=== PATIENT | male | born 1935 | race Caucasian/White ===

== ENCOUNTER 2016-07-03 18:48 | Inpatient (IN) | payer MEDICARE, OTHER ==
[2016-07-03] MEDS ORDERED: cefTRIAXone 1 GM in SODIUM CHLORIDE 0.9% MINIBAG 100 ML IV STA (20:24)
[2016-07-03] MEDS ORDERED: SODIUM CHLORIDE 0.9% 1,000 ML IV ONE ×2 (20:38→21:33)
[2016-07-03] MEDS ORDERED: cefTRIAXone 1 GM VIAL ONE (20:40)
[2016-07-03] MEDS ORDERED: SODIUM CHLORIDE 0.9% MINIBAG 100 ML IV ONE (20:40)
[2016-07-04] MEDS ORDERED: oxyCODONE 5 MG TABLET PO PRN (00:11)
[2016-07-04] MEDS ORDERED: SODIUM CHLORIDE FLUSH 0.9% 10 ML SYRINGE IVP PRN (00:11)
[2016-07-04] MEDS ORDERED: ONDANSETRON 4 MG/2 ML VIAL IVP PRN (00:11)
[2016-07-04] MEDS ORDERED: ACETAMINOPHEN 325 MG TABLET PO PRN (00:11)
[2016-07-04] MEDS ORDERED: ONDANSETRON ODT 4 MG TABLET TL PRN (00:11)
[2016-07-04] MEDS ORDERED: PROCHLORPERAZINE 10 MG/2 ML VIAL IVP PRN (00:11)
[2016-07-04] MEDS: SODIUM CHLORIDE 0.9% 1,000 ML IV SCH ×3 (02:21→22:15)
[2016-07-04] MEDS: LEVOTHYROXINE 25 MCG TABLET PO SCH (06:33)
[2016-07-04] MEDS: SODIUM CHLORIDE FLUSH 0.9% 10 ML SYRINGE IVP SCH ×3 (06:33→22:22)
[2016-07-04] MEDS: POLYETHYLENE GLYCOL 3350 17 GM PACKET PO SCH (08:15)
[2016-07-04] MEDS: diazePAM 5 MG TABLET PO SCH ×2 (08:16→22:14)
[2016-07-04] MEDS: LISINOPRIL 20 MG TABLET PO SCH (08:16)
[2016-07-04] MEDS: amLODIPine 5 MG TABLET PO SCH (08:16)
[2016-07-04] MEDS: GABAPENTIN 300 MG CAPSULE PO SCH ×2 (08:17→22:13)
[2016-07-04] MEDS: POTASSIUM CHLORIDE 10 MEQ CAPSULE PO SCH (08:17)
[2016-07-04] MEDS: INSULIN ASPART 300 UNIT/3 ML PEN SUBQ SCH ×4 (08:17→22:20)
[2016-07-04] MEDS: METOPROLOL SUCCINATE 50 MG TABLET PO SCH ×2 (08:18→22:16)
[2016-07-04] MEDS ORDERED: ENOXAPARIN 40 MG/0.4 ML SYRINGE SUBQ SCH (09:00)
[2016-07-04] MEDS ORDERED: WARFARIN 1 MG TABLET PO SCH (14:00)
[2016-07-04] MEDS: INSULIN GLARGINE 300 UNIT/3 ML PEN SUBQ SCH (22:21)
[2016-07-05] MEDS: LEVOTHYROXINE 25 MCG TABLET PO SCH (06:44)
[2016-07-05] MEDS: SODIUM CHLORIDE FLUSH 0.9% 10 ML SYRINGE IVP SCH ×3 (06:48→21:13)
[2016-07-05] MEDS: POLYETHYLENE GLYCOL 3350 17 GM PACKET PO SCH (08:26)
[2016-07-05] MEDS: GABAPENTIN 300 MG CAPSULE PO SCH ×2 (08:27→21:07)
[2016-07-05] MEDS: amLODIPine 5 MG TABLET PO SCH (08:27)
[2016-07-05] MEDS: diazePAM 5 MG TABLET PO SCH ×2 (08:27→21:07)
[2016-07-05] MEDS: LISINOPRIL 20 MG TABLET PO SCH (08:27)
[2016-07-05] MEDS: INSULIN ASPART 300 UNIT/3 ML PEN SUBQ SCH ×4 (08:28→21:08)
[2016-07-05] MEDS: POTASSIUM CHLORIDE 10 MEQ CAPSULE PO SCH (08:28)
[2016-07-05] MEDS: METOPROLOL SUCCINATE 50 MG TABLET PO SCH ×2 (08:29→21:07)
[2016-07-05] MEDS: SODIUM CHLORIDE 0.9% 1,000 ML IV SCH ×3 (08:30→18:22)
[2016-07-05] MEDS: APIXABAN 2.5 MG TABLET PO SCH ×2 (11:39→21:06)
[2016-07-05] MEDS: INSULIN GLARGINE 300 UNIT/3 ML PEN SUBQ SCH (21:07)
[2016-07-06] MEDS: SODIUM CHLORIDE 0.9% 1,000 ML IV SCH (04:36)
[2016-07-06] MEDS: POTASSIUM CHLORIDE 10 MEQ CAPSULE PO SCH (07:54)
[2016-07-06] MEDS: LEVOTHYROXINE 25 MCG TABLET PO SCH (07:54)
[2016-07-06] MEDS: INSULIN ASPART 300 UNIT/3 ML PEN SUBQ SCH ×2 (07:59→11:46)
[2016-07-06] MEDS: APIXABAN 2.5 MG TABLET PO SCH (09:59)
[2016-07-06] MEDS: LISINOPRIL 20 MG TABLET PO SCH (10:00)
[2016-07-06] MEDS: diazePAM 5 MG TABLET PO SCH (10:00)
[2016-07-06] MEDS: GABAPENTIN 300 MG CAPSULE PO SCH (10:00)
[2016-07-06] MEDS: METOPROLOL SUCCINATE 50 MG TABLET PO SCH (10:00)
[2016-07-06] MEDS: amLODIPine 5 MG TABLET PO SCH (10:00)
[2016-07-06] MEDS: SODIUM CHLORIDE FLUSH 0.9% 10 ML SYRINGE IVP SCH (10:01)
[2016-07-06] MEDS: POLYETHYLENE GLYCOL 3350 17 GM PACKET PO SCH (10:01)
== END 2016-07-06 13:00 | disposition home or self-care (01) | DRG 683 ==
DX: N17.9 Acute kidney failure, unspecified (principal); J40 Bronchitis, not specified as acute or chronic; R53.1 Weakness; M62.82 Rhabdomyolysis; K52.1 Toxic gastroenteritis and colitis; S09.90XA Unspecified injury of head, initial encounter; X58.XXXA Exposure to other specified factors, initial encounter; E46 Unspecified protein-calorie malnutrition; I47.1 Supraventricular tachycardia; I10 Essential (primary) hypertension; E78.00 Pure hypercholesterolemia, unspecified; E86.0 Dehydration; E11.9 Type 2 diabetes mellitus without complications; J06.9 Acute upper respiratory infection, unspecified; E03.9 Hypothyroidism, unspecified; I12.9 Hypertensive chronic kidney disease with stage 1 through stage 4 chronic kidney disease, or unspecified chronic kidney disease; N18.3 Chronic kidney disease, stage 3 (moderate); K44.9 Diaphragmatic hernia without obstruction or gangrene; E11.22 Type 2 diabetes mellitus with diabetic chronic kidney disease; T47.4X1A Poisoning by other laxatives, accidental (unintentional), initial encounter; M19.90 Unspecified osteoarthritis, unspecified site; R53.83 Other fatigue; H91.90 Unspecified hearing loss, unspecified ear; I25.10 Atherosclerotic heart disease of native coronary artery without angina pectoris; E78.5 Hyperlipidemia, unspecified; L20.9 Atopic dermatitis, unspecified; Z68.27 Body mass index [BMI] 27.0-27.9, adult; S50.312A Abrasion of left elbow, initial encounter; S50.311A Abrasion of right elbow, initial encounter; W22.8XXA Striking against or struck by other objects, initial encounter; Z79.01 Long term (current) use of anticoagulants; Z79.4 Long term (current) use of insulin; Z79.899 Other long term (current) drug therapy; K21.9 Gastro-esophageal reflux disease without esophagitis; N40.1 Benign prostatic hyperplasia with lower urinary tract symptoms; N39.498 Other specified urinary incontinence; R35.0 Frequency of micturition; R35.1 Nocturia; R39.15 Urgency of urination; I49.3 Ventricular premature depolarization; M54.9 Dorsalgia, unspecified; Z85.828 Personal history of other malignant neoplasm of skin; Z86.711 Personal history of pulmonary embolism; Y92.009 Unspecified place in unspecified non-institutional (private) residence as the place of occurrence of the external cause

== ENCOUNTER 2016-07-10 08:00 | Outpatient (CLI) | payer MEDICARE, OTHER | END 2016-07-10 08:01 | disposition home or self-care (01) | DX: R05 Cough (principal) ==

== ENCOUNTER 2016-08-10 11:30 | Outpatient (CLI) | payer MEDICARE, OTHER | END 2016-08-10 11:31 | disposition home or self-care (01) | DX: I26.99 Other pulmonary embolism without acute cor pulmonale (principal); I10 Essential (primary) hypertension; E11.9 Type 2 diabetes mellitus without complications ==

== ENCOUNTER 2017-02-09 08:00 | Outpatient (CLI) | payer MEDICARE, OTHER ==
[2017-02-09 19:58] LABS: CALCIUM 9.1 mg/dL (8.5-10.3); CREATININE 1.1 mg/dL (0.6-1.2); POTASSIUM 4.2 mmol/L (3.5-5.0)
[2017-02-09 20:29] LABS: HEMOGLOBIN A1C 0.88 g/dL
== END 2017-02-09 08:01 | disposition home or self-care (01) ==
LOC: LAB.WCP 08:00
PROVIDERS: ATTEND Family Medicine
DX: E11.9 Type 2 diabetes mellitus without complications (principal)
CPT/HCPCS: 36415; 80048; 83036; 87086

== ENCOUNTER 2017-02-09 11:15 | Outpatient (CLI) | payer MEDICARE, OTHER | END 2017-02-09 11:16 | LOC: LAB.R 11:15 | PROVIDERS: ATTEND Family Medicine | DX: N40.1 Benign prostatic hyperplasia with lower urinary tract symptoms (principal) | CPT/HCPCS: 87086 ==

== ENCOUNTER 2017-06-18 14:57 | Outpatient (CLI) | payer MEDICARE, OTHER ==
--- NOTE | 2017-06-23 12:47 | Ultrasound Report ---
RIGHT UPPER QUADRANT ULTRASOUND: 06/18/2017 CLINICAL INDICATION: Right upper quadrant pain. TECHNIQUE: Real-time scanning was performed with abrasives sales representative static images obtained. The liver measures 15 cm. No intrahepatic biliary dilatation is seen. No focal mass is appreciated. The common bile duct measures 3 mm. The gallbladder is normal. The right kidney measures 10.1 cm, and demonstrates no hydronephrosis. No free fluid is present. IMPRESSION: No evidence of cholelithiasis or biliary dilatation. TD: 06/18/2017 20:17 MTDD
== END 2017-06-18 14:58 | disposition home or self-care (01) ==
LOC: DI 14:57
PROVIDERS: ATTEND Family Medicine
DX: R10.11 Right upper quadrant pain (principal)
CPT/HCPCS: 76705

== ENCOUNTER 2018-02-25 10:57 | Outpatient (CLI) | payer MEDICARE, OTHER ==
--- NOTE | 2018-02-25 12:56 | Ultrasound Report ---
Reason: HEMACHROMATOSIS Procedure Date: 02/25/2018 Accession Number: [id number] / [id number] Procedure: US - Abdomen Limited CPT Code: FULL RESULT: EXAM: ABDOMEN ULTRASOUND LIMITED, RUQ (LIMITED TO LIVER AND BILIARY ) EXAM DATE: 02/25/2018 12:06 PM. CLINICAL HISTORY: History of hemachromatosis COMPARISON: Right upper quadrant ultrasound 07/18/2011. TECHNIQUE: Real-time scanning was performed with static images obtained. FINDINGS: Liver: Normal in size and echotexture. 14.6 cm. Main portal vein flow: Hepatopetal. Gallbladder: No stones, wall thickening, or sonographic Beth's sign. Biliary System: CBD measures 2.4 mm. No intrahepatic or extrahepatic ductal dilatation. No ascites. IMPRESSION: Normal sonographic appearance of the liver RADIA
== END 2018-02-25 10:58 | disposition home or self-care (01) ==
LOC: DI 10:57
PROVIDERS: ATTEND Internal Medicine
DX: E83.119 Hemochromatosis, unspecified (principal)
CPT/HCPCS: 76705

== ENCOUNTER 2018-05-06 17:00 | Outpatient (CLI) | payer MEDICARE, OTHER ==
--- NOTE | 2018-05-07 11:56 | XRAY Report ---
Reason: BACK PAIN LUMBAR,RIGHT UPPER QUADRANT PAIN Procedure Date: 05/06/2018 Accession Number: [id number] / [id number] Procedure: XR - Lumbar Spine 2 View CPT Code: FULL RESULT: EXAM: LUMBOSACRAL SPINE RADIOGRAPHY EXAM DATE: 05/06/2018 05:20 PM. CLINICAL HISTORY: Back pain lumbar, right upper quadrant pain. COMPARISONS: 5 views, digitized hardcopy images 05/26/2006. TECHNIQUE: 2 views. FINDINGS: Alignment: Mild upper lumbar dextroconvexity curvature, increased. Increased mild rightward listhesis of L3 on L4. 3 mm anterolisthesis at L4-L5 appears new. Bones: Five kwi-zls-giapjth lumbar vertebral bodies are present. No fractures or bone lesions. Disks: Mild L5-S1 disk space narrowing. Facets: Degenerative facet disease at L4-L5 and L5-S1 and less so at L3-L4, progressed. Sacroiliac Joints: Unremarkable. Soft Tissues: Substantial aortic calcification. The visualized bowel gas pattern is normal. IMPRESSION: 1. No acute abnormality. 2. New mild dextroconvexity lumbar scoliosis and very mild L4-L5 anterior listhesis. 3. Degenerative disease, greatest at the L4-L5 and L4-L5 facets and less so at the L3-L4 facets and L5-S1 disk space level, progressed compared with 2005. RADIA
--- NOTE | 2018-05-09 07:47 | XRAY Report ---
Reason: Right upper quadrant pain Procedure Date: 05/06/2018 Accession Number: [id number] / [id number] Procedure: XR - Abdomen Acute CPT Code: FULL RESULT: EXAM: ABDOMINAL SERIES AND PA CHEST EXAM DATE: 05/06/2018 05:20 PM. CLINICAL HISTORY: Right upper quadrant pain. COMPARISON: 07/03/2016 chest x-ray, 12/31/2015 CT abdomen and pelvis. TECHNIQUE: 2 views abdomen and 1 view chest. FINDINGS: CHEST: Lungs/Pleura: Left basilar infiltrate or atelectasis. Right basilar atelectasis or scarring. Increased interstitial markings in bilateral mid to lower lung field. No effusion. No pneumothorax. Decreased lung volumes. Mediastinum: Heart size normal ectatic aorta ABDOMEN: Bowel Gas Pattern: Increased fecal material No dilated loops or abnormal fluid levels. Free Air: None. Other: Pelvic phleboliths IMPRESSION: 1. Left basilar infiltrate or atelectasis. 2. Increased interstitial markings bilaterally nonspecific. 3. Increased fecal material without obstruction RADIA
== END 2018-05-06 17:01 | disposition home or self-care (01) ==
LOC: DI 17:00
PROVIDERS: ATTEND Family Medicine
DX: M51.36 Other intervertebral disc degeneration, lumbar region (principal); M41.86 Other forms of scoliosis, lumbar region; R10.11 Right upper quadrant pain
CPT/HCPCS: 72100; 74022

== ENCOUNTER 2018-08-31 14:47 | Outpatient (CLI) | payer MEDICARE, OTHER ==
--- NOTE | 2018-08-31 15:40 | XRAY Report ---
Reason: RIB PX, RIGHT SIDED Procedure Date: 08/31/2018 Accession Number: [id number] / [id number] Procedure: WCP - Chest 2 View X-Ray CPT Code: 72623 FULL RESULT: EXAM: CHEST RADIOGRAPHY EXAM DATE: 08/31/2018 03:25 PM. CLINICAL HISTORY: Rib pain, right sided. COMPARISON: Chest 2 view PA/LAT 07/03/2016 7:27 PM. TECHNIQUE: 2 views. FINDINGS: Lungs/Pleura: No focal opacities evident. No pleural effusion. No pneumothorax. Normal volumes. Mediastinum: The cardiomediastinal silhouette is stable, mild cardiomegaly with calcification of the aortic arch. Other: None. IMPRESSION: Mild cardiomegaly with no acute cardiopulmonary abnormality detected. RADIA
== END 2018-08-31 14:48 | disposition home or self-care (01) ==
LOC: DI.WCP 14:47
PROVIDERS: ATTEND Family Medicine
DX: J18.1 Lobar pneumonia, unspecified organism (principal); I11.0 Hypertensive heart disease with heart failure; I50.9 Heart failure, unspecified; E11.9 Type 2 diabetes mellitus without complications; R07.81 Pleurodynia
CPT/HCPCS: 36415; 71046; 80053; 83880; 85027

== ENCOUNTER 2018-08-31 15:25 | Outpatient (CLI) | payer MEDICARE, OTHER ==
[2018-08-31 19:07] LABS: HGB - HEMOGLOBIN 15.1 g/dL (14.0-18.0); MEAN CORPUSCULAR HEMOGLOBIN 32.5 pg (27.0-31.0); MEAN CORPUSCULAR HGB CONC 33.5 g/dL (32.0-36.0); MEAN CORPUSCULAR VOLUME 97.2 fL (80.0-94.0); MEAN PLATELET VOLUME 8.3 fL (7.4-11.4); RED BLOOD COUNT 4.63 10^6/uL (4.70-6.10); RED CELL DISTRIBUTION WIDTH 13.6 % (12.0-15.0); WHITE BLOOD COUNT 7.1 x10^3/uL (4.8-10.8)
[2018-08-31 19:35] LABS: ALBUMIN 3.9 g/dL (3.2-5.5); ALBUMIN/GLOBULIN RATIO 1.3 (1.0-2.2); BILIRUBIN,TOTAL 1.2 mg/dL (0.2-1.0); CALCIUM 8.7 mg/dL (8.5-10.3); CREATININE 1.1 mg/dL (0.6-1.2); TOTAL PROTEIN 6.9 g/dL (6.7-8.2)
== END 2018-08-31 23:59 | disposition home or self-care (01) ==
LOC: LAB.WCP 15:25
PROVIDERS: ATTEND Nurse Practitioner
DX: J81.1 Chronic pulmonary edema (principal); I11.0 Hypertensive heart disease with heart failure; I50.9 Heart failure, unspecified; E11.9 Type 2 diabetes mellitus without complications
CPT/HCPCS: 36415; 80053; 83880; 85027

== ENCOUNTER 2018-09-09 14:00 | Emergency (ER) | payer MEDICARE, OTHER ==
--- NOTE | 2018-09-09 15:01 | ED Physician Documentation ---
PD HPI UPPER EXT INJURY - Stated complaint Stated Complaint: RT ARM INJURY - Chief complaint Chief Complaint: Trauma Ext - History obtained from History obtained from: Patient, Caregiver - History of Present Illness Location: Right, Elbow Type of injury: Fall Where injury occurred: Home Timing - onset: How many hours ago (1) Timing - details: Intermittant Pain level max: 6 Pain level now: 5 Improved by: Rest, Ice, Immobilization Worsened by: Moving, Palpating Associated symptoms: Swelling. No: Weakness, Numbness, Tingling Contributing factors: Anticoagulated (Eliquis) Recently seen: Not recently seen - Additonal information Additional information: 82-year-old male was taking the garbage out today when he slipped fell landed on the right elbow. Did not strike his head. No headache. He is on Eliquis. No neck or back pain. No pain other than the right elbow. Worse with movement and better with rest Review of Systems Ten Systems: 10 systems reviewed and negative Constitutional: denies: Fever, Chills Nose: denies: Rhinorrhea / runny nose, Congestion Respiratory: denies: Cough GI: denies: Abdominal Pain, Nausea, Vomiting, Diarrhea Skin: denies: Rash Musculoskeletal: denies: Neck pain, Back pain Neurologic: denies: Focal weakness, Numbness, Confused, Headache, Head injury, LOC PD PAST MEDICAL HISTORY - Past Medical History Cardiovascular: Hypertension, High cholesterol, Coronary artery disease, Pulmonary embolism, Angina Respiratory: None Endocrine/Autoimmune: Type 2 diabetes, HyPOthyroidism GI: GERD, Hiatal hernia, Diverticulitis : Benign prostate hypertrophy, Frequency HEENT: Chronic hearing loss Musculoskeletal: Osteoarthritis Derm: None - Past Surgical History General: Hiatal hernia repair Cardiovascular: Cardiac catheterization Derm: Skin cancer surgery - Present Medications Home Medications: Ambulatory Orders Medication Instructions Recorded Confirmed Diazepam 5 mg PO BID 03/13/13 07/04/16 Furosemide 20 mg PO MOWEFR 03/13/13 07/04/16 Gabapentin [Neurontin] 300 mg PO BID 03/13/13 07/04/16 Insulin Aspart [Novolog] 10 unit SQ BIDAC 03/13/13 07/04/16 Insulin Glargine [Lantus] 30 unit SUBQ QPM 03/13/13 07/04/16 Levothyroxine [Synthroid] 25 mcg PO DAILY 03/13/13 07/04/16 Metoprolol Succinate [Toprol Xl] 100 mg PO BID 03/13/13 07/04/16 Omeprazole [Prilosec] 20 mg PO DAILY 03/13/13 07/04/16 Potassium Chloride [Micro-K] 10 meq PO MOWEFR 03/13/13 07/04/16 Quinapril HCl [Accupril] 20 mg PO DAILY 03/13/13 07/04/16 Simvastatin [Zocor] 10 mg PO HS 03/13/13 07/04/16 amLODIPine [Norvasc] 5 mg PO DAILY 03/13/13 07/04/16 Liraglutide [Victoza 2-Tanmay] 0.6 mg SQ DAILY 03/18/15 07/04/16 Apixaban [Eliquis] 5 mg PO BID 07/04/16 07/04/16 Triamcinolone 0.1% Cream [Kenalog 15 applic TOP BID #1 tube 07/06/16 0.1% Cream] - Allergies Allergies/Adverse Reactions: Allergies Allergy/AdvReac Type Severity Reaction Status Date / Time contrast dye Allergy Severe Hives Uncoded 09/09/18 14:16 - Social History Does the pt smoke?: No Smoking Status: Never smoker Does the pt drink ETOH?: No Does the pt have substance abuse?: No - Immunizations Immunizations are current?: Yes PD ED PE NORMAL - Vitals Vital signs reviewed: Yes - General General: Alert and oriented X 3, No acute distress, Well developed/nourished - HEENT HEENT: Atraumatic, PERRL, EOMI, Ears normal, Moist mucous membranes, Pharynx benign - Neck Neck: Supple, no meningeal sign, No bony TTP - Cardiac Cardiac: RRR, Strong equal pulses - Respiratory Respiratory: No respiratory distress, Clear bilaterally - Abdomen Abdomen: Soft, Non tender, Non distended - Back Back: No spinal TTP - Derm Derm: Warm and dry - Extremities Extremities: Other (Swelling to the lateral aspect of the right elbow. Pain with range of motion. 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 ) Procedures - Splint (location) R arm Splint applied by: Physician, Tech Type of splint: Fiberglass, Long arm, Posterior Other: Patient tolerated well, No complications, Neurovascular intact, Sling provided PD MEDICAL DECISION MAKING - ED course Complexity details: reviewed results, re-evaluated patient, considered differential, d/w patient, d/w family, d/w senior application security consultant ED course: 82-year-old male status post a ground-level fall landing on the right elbow. He is on Eliquis. Found to have a transverse supracondylar fracture of the right distal humerus. Discussed the case with Dr. Ferrell, orthopedics who recommends a long-arm posterior splint with follow-up in clinic. Patient counseled regarding signs and symptoms for which I believe and urgent re-evaluation would be necessary. Patient with good understanding of and agreement to plan and is comfortable going home at this time This document was made in part using voice recognition software. While efforts are made to proofread this document, sound alike and grammatical errors may occur. Departure - Departure Disposition: 01 Home, Self Care Clinical Impression: Supracondylar fracture of humerus Qualifiers: Encounter type: initial encounter Fracture type: closed Laterality: right Qualified Code(s): S42.411A - Displaced simple supracondylar fracture without intercondylar fracture of right humerus, initial encounter for closed fracture Condition: Good Instructions: ED Fx Elbow Follow-Up: [facility] [Provider Group] Fantasma Ferrell MD [Provider Admit Priv/Credential] - Within 1 week (call wednesday for an appointment. ) Comments: Return if you worsen. Stay in the sling and splint until released by orthopedics. Have your caregiver call them on Wednesday for an appointment. Discharge Date/Time: 09/09/18 17:45
--- NOTE | 2018-09-09 15:44 | XRAY Report ---
Reason: fall, R arm pain Procedure Date: 09/09/2018 Accession Number: [id number] / [id number] Procedure: XR - Elbow 3 View RT CPT Code: FULL RESULT: EXAM: RIGHT ELBOW RADIOGRAPHY EXAM DATE: 09/09/2018 03:17 PM. CLINICAL HISTORY: Fall, R arm pain. COMPARISON: None. TECHNIQUE: 3 views. FINDINGS: Bones: Transverse supracondylar fracture with impaction, apex posterior angulation, and probably about 80% apposition. Otherwise unremarkable. Joints: Distended anterior and posterior fat pads. Soft Tissues: Soft tissue swelling. IMPRESSION: Supracondylar fracture. RADIA
[2018-09-09 17:42] VITALS: BP 144/77
== END 2018-09-09 17:45 | disposition home or self-care (01) ==
LOC: ED 14:00
DX: S42.411A Displaced simple supracondylar fracture without intercondylar fracture of right humerus, initial encounter for closed fracture (principal); W01.0XXA Fall on same level from slipping, tripping and stumbling without subsequent striking against object, initial encounter; Y93.E9 Activity, other interior property and clothing maintenance; Y92.009 Unspecified place in unspecified non-institutional (private) residence as the place of occurrence of the external cause; I10 Essential (primary) hypertension; E11.9 Type 2 diabetes mellitus without complications; Z79.4 Long term (current) use of insulin; Z79.01 Long term (current) use of anticoagulants
CPT/HCPCS: 29105; 99283

== ENCOUNTER 2018-09-12 12:53 | Emergency (ER) | payer MEDICARE, OTHER ==
[2018-09-12 13:14] VITALS: BP 116/61
[2018-09-12] MEDS ORDERED: oxyCODONE 5 MG TABLET PO STA (13:44)
--- NOTE | 2018-09-12 13:46 | ED Physician Documentation ---
History of Present Illness - Stated complaint Stated Complaint: R ELBOW INJ - Chief complaint Chief Complaint: Ext Problem - History obtained from History obtained from: Patient, Family - History of Present Illness Timing: How many days ago (3) Pain level max: 8 Pain level now: 2 Improved by: nothing Worsened by: nothing - Additonal information Additional information: 82 year old male with R arm supracondylar fracture 3 days ago. Increased pain last night. No fevers. no numbness or tingling Review of Systems Constitutional: denies: Fever, Chills Respiratory: denies: Cough : denies: Dysuria Skin: denies: Rash Musculoskeletal: denies: Neck pain, Back pain Neurologic: denies: Headache PD PAST MEDICAL HISTORY - Past Medical History Cardiovascular: Hypertension, High cholesterol, Coronary artery disease, Pulmonary embolism, Angina Respiratory: None Endocrine/Autoimmune: Type 2 diabetes, HyPOthyroidism GI: GERD, Hiatal hernia, Diverticulitis : Benign prostate hypertrophy, Frequency HEENT: Chronic hearing loss Musculoskeletal: Osteoarthritis Derm: None - Past Surgical History General: Hiatal hernia repair Cardiovascular: Cardiac catheterization Derm: Skin cancer surgery - Present Medications Home Medications: Ambulatory Orders Medication Instructions Recorded Confirmed Diazepam 5 mg PO BID 03/13/13 07/04/16 Furosemide 20 mg PO MOWEFR 03/13/13 07/04/16 Gabapentin [Neurontin] 300 mg PO BID 03/13/13 07/04/16 Insulin Aspart [Novolog] 10 unit SQ BIDAC 03/13/13 07/04/16 Insulin Glargine [Lantus] 30 unit SUBQ QPM 03/13/13 07/04/16 Levothyroxine [Synthroid] 25 mcg PO DAILY 03/13/13 07/04/16 Metoprolol Succinate [Toprol Xl] 100 mg PO BID 03/13/13 07/04/16 Omeprazole [Prilosec] 20 mg PO DAILY 03/13/13 07/04/16 Potassium Chloride [Micro-K] 10 meq PO MOWEFR 03/13/13 07/04/16 Quinapril HCl [Accupril] 20 mg PO DAILY 03/13/13 07/04/16 Simvastatin [Zocor] 10 mg PO HS 03/13/13 07/04/16 amLODIPine [Norvasc] 5 mg PO DAILY 03/13/13 07/04/16 Liraglutide [Victoza 2-Tanmay] 0.6 mg SQ DAILY 03/18/15 07/04/16 Apixaban [Eliquis] 5 mg PO BID 07/04/16 07/04/16 Triamcinolone 0.1% Cream [Kenalog 15 applic TOP BID #1 tube 07/06/16 0.1% Cream] Oxycodone HCl/Acetaminophen 1 - 2 each PO Q6H PRN #14 tablet 09/12/18 [Percocet 5-325 mg Tablet] - Allergies Allergies/Adverse Reactions: Allergies Allergy/AdvReac Type Severity Reaction Status Date / Time contrast dye Allergy Severe Hives Uncoded 09/09/18 14:16 - Social History Does the pt smoke?: No Smoking Status: Never smoker Does the pt drink ETOH?: No Does the pt have substance abuse?: No - Immunizations Immunizations are current?: Yes PD ED PE NORMAL - Vitals Vital signs reviewed: Yes - General General: Alert and oriented X 3, No acute distress - HEENT HEENT: Moist mucous membranes - Neck Neck: Supple, no meningeal sign - Derm Derm: Warm and dry - Extremities Extremities: Other (R arm - in splint. Brisk cap refill. NVI.) - Neuro Neuro: Alert and oriented X 3 - Psych Psych: Normal mood, Normal affect Results - Vitals Vitals: Vital Signs - 24 hr 09/12/18 13:12 Temperature 36.5 C Heart Rate 70 Respiratory 20 Rate Blood Pressure 116/61 O2 Saturation 96 Oxygen O2 Source [] Room air O2 Source Room air Procedures - Splint (location) R UE Splint applied by: Physician, Tech Type of splint: Fiberglass, Long arm, Posterior Other: Patient tolerated well, No complications, Neurovascular intact, Sling pr ovided PD MEDICAL DECISION MAKING - ED course Complexity details: considered differential, d/w patient, d/w family ED course: A new splint was applied. Patient feels better in the splint. Will place on pain medication for home. Patient and family counseled regarding signs and symptoms for which I believe and urgent re-evaluation would be necessary. Patient with good understanding of and agreement to plan and is comfortable going home at this time This document was made in part using voice recognition software. While efforts are made to proofread this document, sound alike and grammatical errors may occur. Departure - Departure Disposition: 01 Home, Self Care Clinical Impression: Supracondylar fracture of humerus Qualifiers: Encounter type: initial encounter Fracture type: closed Laterality: right Qualified Code(s): S42.411A - Displaced simple supracondylar fracture without intercondylar fracture of right humerus, initial encounter for closed fracture Condition: Good Instructions: ED Fx Elbow Follow-Up: [facility] [Provider Group] - Within 1 week Prescriptions: Oxycodone HCl/Acetaminophen [Percocet 5-325 mg Tablet] 1 - 2 each PO Q6H PRN #14 tablet PRN Reason: pain Comments: Follow-up with orthopedics for further evaluation and care. Return if you worsen. Do not drink alcohol or drive while on narcotic pain medicine. Note that many narcotic pain relievers also contain tylenol/acetaminophen. Please ensure that your total dose of acetaminophen from all sources does not exceed 3 grams (3000mg) per day. You may constipated on this medication, take a stool softener such as "Colace" twice a day while you are on it. Also recommend a bize-ols-fuzlpdt laxative such as senna or MiraLAX any day that you do not have a bowel movement. If you received narcotic pain medication in the emergency department, do not drive or operate machinery for the next 24 hours. Discharge Date/Time: 09/12/18 14:31
== END 2018-09-12 14:31 | disposition home or self-care (01) ==
LOC: ED 12:53
DX: S42.411A Displaced simple supracondylar fracture without intercondylar fracture of right humerus, initial encounter for closed fracture (principal); X58.XXXA Exposure to other specified factors, initial encounter; E11.9 Type 2 diabetes mellitus without complications; Z79.4 Long term (current) use of insulin; I10 Essential (primary) hypertension; E78.00 Pure hypercholesterolemia, unspecified; I25.10 Atherosclerotic heart disease of native coronary artery without angina pectoris; E03.9 Hypothyroidism, unspecified; Z86.711 Personal history of pulmonary embolism
CPT/HCPCS: 29105; 99283; A9270

== ENCOUNTER 2018-09-15 15:28 | Outpatient (CLI) | payer MEDICARE, OTHER ==
--- NOTE | 2018-09-15 16:30 | CT Report ---
Reason: UNSPECIFIED FRACTURE OF LOWER END OF RIGHT HUMERUS Procedure Date: 09/15/2018 Accession Number: [id number] / [id number] Procedure: CT - UPPER EXTREMITY WO - RT CPT Code: FULL RESULT: EXAM: RIGHT ELBOW CT WITHOUT CONTRAST EXAM DATE: 09/15/2018 03:49 PM. CLINICAL HISTORY: Unspecified fracture of lower end of right humerus. COMPARISON: Radiographs 09/15/2018. TECHNIQUE: Thin-section axial images were acquired of the elbow without contrast. Post-processing: Coronal and sagittal reformats. Other: None. In accordance with CT protocol optimization, one or more of the following dose reduction techniques were utilized for this exam: automated exposure control, adjustment of mA and/or KV based on patient size, or use of iterative reconstructive technique. FINDINGS: Evaluation mildly limited due to attenuation artifact from evaluation performed at patient's side. Overlying splint/cast material also present. Bones: Moderately comminuted, displaced, and impacted intraarticular fracture at the distal humerus. Obliquely oriented component extends from the lateral epicondyle to the junction of the trochlear and capitellar articular surfaces. Smaller obliquely oriented component extends from the medial epicondyle to the junction of the trochlear and capitellar articular surfaces. Multiple ossific fragments at the anterior and posterior aspects of the fracture site. Subtle lucency projects obliquely through the posterior lateral aspect radial head, concerning for nondisplaced fracture. No discrete displaced fracture visualized of the proximal ulna. Evaluation for nondisplaced fracture limited on CT. Joints: Alignment at the radiocapitellar and ulnar trochlear joints anatomic. Moderate to large joint effusion. Multiple small fracture fragments and the coronoid and olecranon fossae. Musculature: No gross fatty atrophy. Limited evaluation of muscle edema on CT. Other: Moderate to severe subcutaneous edema, most prominent posteriorly and medially. IMPRESSION: 1. Moderately comminuted, displaced, and impacted intraarticular fracture distal humerus. 2. Moderate to large joint effusion with multiple small fracture fragments in the coronoid and olecranon fossae. 3. Likely nondisplaced fracture posterior lateral aspect radial head. RADIA The call report notification system was initiated by Dr. Meenu Kerr at 04:29 PM on 09/15/2018. The above call report findings were discussed with Earnest Medina, chemical waste management technician by Dr. Meenu Kerr at 04:31 PM on 09/15/2018.
== END 2018-09-15 15:29 | disposition home or self-care (01) ==
LOC: DI 15:28
PROVIDERS: ATTEND Orthopaedic Surgery Sports Medicine
DX: S42.401A Unspecified fracture of lower end of right humerus, initial encounter for closed fracture (principal); M25.421 Effusion, right elbow

== ENCOUNTER 2018-09-20 13:21 | Outpatient (CLI) | payer MEDICARE, OTHER | END 2018-09-20 13:22 | disposition home or self-care (01) | LOC: DI 13:21 | PROVIDERS: ATTEND Nurse Practitioner | DX: I50.9 Heart failure, unspecified (principal) | CPT/HCPCS: 93306 ==

== ENCOUNTER 2018-10-01 13:13 | Outpatient (CLI) | payer MEDICARE, OTHER | END 2018-10-01 13:14 | disposition critical access hospital (66) | LOC: EMS 13:13 | PROVIDERS: ATTEND Surgery | DX: R42 Dizziness and giddiness (principal) | CPT/HCPCS: A0425; A0427 ==

== ENCOUNTER 2018-10-01 13:31 | Emergency (ER) | payer MEDICARE, OTHER ==
[2018-10-01] MEDS ORDERED: SODIUM CHLORIDE 0.9% 1,000 ML IV ONE (13:47)
--- NOTE | 2018-10-01 13:51 | ED Physician Documentation ---
History of Present Illness - Stated complaint Stated Complaint: DIZZY - Chief complaint Chief Complaint: Neuro - History obtained from History obtained from: Patient - History of Present Illness Timing: Prior to arrival - Additonal information Additional information: Patient is a 83-year-old male with hearing deficit and a complicated past medical history although not appearing to be on anticoagulation according to the meds brought with him by EMS presenting with episode of lightheadedness earlier today. Patient is able to provide some history, although difficult and minimal sign language and lip reading is used. Per EMS and patient, he has multiple caregivers at home and believe that he is compliant with all medications. Patient has been eating well, but suffering from constipation without vomiting or urinary changes. Patient denies areas of pain except for his abdomen including no chest pain. Patient also denies difficulty breathing. Patient stood up to use the restroom and walked several feet and felt lightheaded and fell backwards into his chair without striking of head, loss of consciousness, or other injury.There are no obvious improving or worsening factors noted. Review of Systems Unable to obtain: Other (Deaf) GI: reports: Constipation Neurologic: reports: Near syncope PD PAST MEDICAL HISTORY - Past Medical History Cardiovascular: Hypertension, High cholesterol, Coronary artery disease, Pulmonary embolism, Angina Respiratory: None Endocrine/Autoimmune: Type 2 diabetes, HyPOthyroidism GI: GERD, Hiatal hernia, Diverticulitis : Benign prostate hypertrophy, Frequency HEENT: Chronic hearing loss Musculoskeletal: Osteoarthritis Derm: None - Past Surgical History General: Hiatal hernia repair Cardiovascular: Cardiac catheterization Derm: Skin cancer surgery - Present Medications Home Medications: Ambulatory Orders Medication Instructions Recorded Confirmed Diazepam 5 mg PO BID 03/13/13 10/01/18 Furosemide 20 mg PO MOWEFR 03/13/13 10/01/18 Gabapentin [Neurontin] 300 mg PO BID 03/13/13 10/01/18 Insulin Aspart [Novolog] 10 unit SQ BIDAC 03/13/13 10/01/18 Insulin Glargine [Lantus] 30 unit SUBQ QPM 03/13/13 10/01/18 Levothyroxine [Synthroid] 25 mcg PO DAILY 03/13/13 10/01/18 Metoprolol Succinate [Toprol Xl] 100 mg PO BID 03/13/13 10/01/18 Omeprazole [Prilosec] 20 mg PO DAILY 03/13/13 10/01/18 Potassium Chloride [Micro-K] 10 meq PO MOWEFR 03/13/13 10/01/18 amLODIPine [Norvasc] 5 mg PO DAILY 03/13/13 10/01/18 Apixaban [Eliquis] 5 mg PO BID 07/04/16 10/01/18 Triamcinolone 0.1% Cream [Kenalog 15 applic TOP BID #1 tube 07/06/16 10/01/18 0.1% Cream] Oxycodone HCl/Acetaminophen 1 - 2 each PO Q6H PRN #14 tablet 09/12/18 10/01/18 [Percocet 5-325 mg Tablet] - Allergies Allergies/Adverse Reactions: Allergies Allergy/AdvReac Type Severity Reaction Status Date / Time caffeine AdvReac Unknown Verified 10/01/18 13:43 contrast dye Allergy Severe Hives Uncoded 10/01/18 13:43 - Social History Does the pt smoke?: No Smoking Status: Never smoker Does the pt drink ETOH?: No Does the pt have substance abuse?: No - Immunizations Immunizations are current?: Yes PD ED PE NORMAL - General General: Alert and oriented X 3, No acute distress, Well developed/nourished, Other (Deaf with limited speaking) - HEENT HEENT: Atraumatic, PERRL (Gross visual acuity intact), EOMI, Moist mucous membranes, Pharynx benign, Dentition benign, Other (No evidence of intraoral trauma) - Neck Neck: No bony TTP - Cardiac Cardiac: RRR, No murmur - Respiratory Respiratory: No respiratory distress, Clear bilaterally - Abdomen Abdomen: Normal bowel sounds, Soft, Non tender, Non distended - Derm Derm: Normal color, Warm and dry - Extremities Extremities: No edema, Other (Right arm in splintOtherwise unremarkable) - Neuro Neuro: Other (No gross motor or sensory deficits noted except for speech given patient's hearing deficit, which is at baseline. Also has right arm injury and splint in place.) - Psych Psych: Normal mood, Normal affect Results - Vitals Vitals: Vital Signs - 24 hr 10/01/18 10/01/18 10/01/18 13:36 14:11 14:38 Temperature 36.3 C L Heart Rate 87 88 Heart Rate [ 67 Sitting] Heart Rate [ 75 Standing] Heart Rate [ 62 Supine] Respiratory 14 14 Rate Blood Pressure 123/84 H 127/94 H Blood Pressure 139/72 H [Sitting] Blood Pressure 120/108 H [Standing] Blood Pressure 125/68 [Supine] O2 Saturation 97 94 Oxygen O2 Source [With Activity] Room air O2 Source Room air - EKG (time done) 1351 Rate: Rate (enter#) (88) Rhythm: NSR QRS: LVH Ischemia: Non specific changes - Labs Labs: Laboratory Tests 10/01/18 10/01/18 10/01/18 13:55 13:55 13:55 WBC 7.6 RBC 4.20 L Hgb 13.2 L Hct 39.5 L MCV 93.9 MCH 31.4 H MCHC 33.5 RDW 13.1 Plt Count 305 MPV 7.2 L Neut # (Auto) 5.5 Lymph # (Auto) 1.4 L [place] # (Auto) 0.5 Eos # (Auto) 0.2 Baso # (Auto) 0.0 Absolute Nucleated RBC 0.00 Nucleated RBC % 0.0 Sodium 134 L Potassium 3.9 Chloride 99 L Carbon Dioxide 23 Anion Gap 12.0 BUN 18 Creatinine 1.2 Estimated GFR (MDRD) 58 L Glucose 246 H Calcium 8.6 Total Bilirubin 1.0 AST 20 ALT < 10 L Alkaline Phosphatase 91 Troponin I < 0.04 Total Protein 6.7 Albumin 3.1 L Globulin 3.6 Albumin/Globulin Ratio 0.9 L Lipase 20 L Urine Color Urine Clarity Urine pH Ur Specific [place] Urine Protein Urine Glucose (UA) Urine Ketones Urine Occult Blood Urine Nitrite Urine Bilirubin Urine Urobilinogen Ur Leukocyte Esterase Ur Microscopic Review Urine Culture Comments 10/01/18 15:15 WBC RBC Hgb Hct MCV MCH MCHC RDW Plt Count MPV Neut # (Auto) Lymph # (Auto) [place] # (Auto) Eos # (Auto) Baso # (Auto) Absolute Nucleated RBC Nucleated RBC % Sodium Potassium Chloride Carbon Dioxide Anion Gap BUN Creatinine Estimated GFR (MDRD) Glucose Calcium Total Bilirubin AST ALT Alkaline Phosphatase Troponin I Total Protein Albumin Globulin Albumin/Globulin Ratio Lipase Urine Color YELLOW Urine Clarity CLEAR Urine pH 6.5 Ur Specific [place] 1.015 Urine Protein NEGATIVE Urine Glucose (UA) NEGATIVE Urine Ketones NEGATIVE Urine Occult Blood NEGATIVE Urine Nitrite NEGATIVE Urine Bilirubin NEGATIVE Urine Urobilinogen 0.2 (NORMAL) Ur Leukocyte Esterase NEGATIVE Ur Microscopic Review NOT INDICATED Urine Culture Comments NOT INDICATED PD MEDICAL DECISION MAKING - ED course Complexity details: reviewed results, re-evaluated patient, considered differential, d/w patient ED course: Patient is a 83-year-old man who was presented to the ED before with complaints of lightheadedness and has otherwise complicated past medical history presenting with likely vasovagal near syncope earlier today. Patient did not experience significant injury or trauma and have low suspicion for fractures, intracranial bleed or other injury. Do not feel patient requires imaging at this time. Patient has elevated glucose which is reflective of his underlying disease process and IV fluids started. Screening lab work also obtained which did not find evidence of leukocytosis, market anemia, acute kidney injury, or other significant process. UA unremarkable. EKG and troponin unremarkable. Orthostatics appropriate. I have low suspicion for other acute pathology including ACS, myocardial infarction, unstable angina, stroke, AAA, systemic infection or otherwise, although considered. Patient able to tolerate movement and ambulation with assistance in the ED. Patient does have multiple caregivers at home available to him and is scheduled for follow-up regarding his right arm injury within the next several days. Feel that he is safe to discharge home with strict return precautions, supportive cares, and appropriate follow-up. Departure - Departure Disposition: 01 Home, Self Care Clinical Impression: Vasovagal near-syncope Condition: Good Instructions: ED Near Syncope Vasovagal Follow-Up: Lea Khan ARNP, [employer] [Primary Care Provider] - Within 3 Days Comments: Please continue all home medications as previously prescribed. Please maintain good control of blood sugar and remain hydrated and eating healthy, regular meals. Recommend moving slowly from getting up from a laying down to sitting, sitting to standing, standing to walking position. Please follow-up with primary care physician in next 2-3 days and return to ED sooner if experience return of lightheadedness, passing out, chest pain, difficulty breathing, or other concerns.
[2018-10-01 14:19] LABS: BASOPHILS % (AUTO) 0.4 %; EOSINOPHILS # (AUTO) 0.2 10^3/uL (0.0-0.7); EOSINOPHILS % (AUTO) 2.5 %; HGB - HEMOGLOBIN 13.2 g/dL (14.0-18.0); LYMPHOCYTES # (AUTO) 1.4 10^3/uL (1.5-3.5); LYMPHOCYTES % (AUTO) 18.3 %; MEAN CORPUSCULAR HEMOGLOBIN 31.4 pg (27.0-31.0); MEAN CORPUSCULAR HGB CONC 33.5 g/dL (32.0-36.0); MEAN CORPUSCULAR VOLUME 93.9 fL (80.0-94.0); MEAN PLATELET VOLUME 7.2 fL (7.4-11.4); MONOCYTES # (AUTO) 0.5 10^3/uL (0.0-1.0); MONOCYTES % (AUTO) 7.2 %; NEUTROPHILS # (AUTO) 5.5 10^3/uL (1.5-6.6); NEUTROPHILS % (AUTO) 71.6 %; PLT - PLATELET COUNT 305 10^3/uL (130-450); RED CELL DISTRIBUTION WIDTH 13.1 % (12.0-15.0); WHITE BLOOD COUNT 7.6 x10^3/uL (4.8-10.8)
[2018-10-01 14:35] LABS: ALBUMIN 3.1 g/dL (3.2-5.5); ALBUMIN/GLOBULIN RATIO 0.9 (1.0-2.2); ALKALINE PHOSPHATASE 91 IU/L (42-121); ALT ALANINE AMINOTRANSFERASE < 10 IU/L (10-60); AST ASPARTATE AMINOTRANSFERASE 20 IU/L (10-42); BUN - BLOOD UREA NITROGEN 18 mg/dL (6-20); CALCIUM 8.6 mg/dL (8.5-10.3); CARBON DIOXIDE - CO2 23 mmol/L (21-32); CHLORIDE 99 mmol/L (101-111); CREATININE 1.2 mg/dL (0.6-1.2); GFR - MDRD 58 (>89); GLUCOSE 246 mg/dL (70-100); LIPASE 20 U/L (22-51); SODIUM 134 mmol/L (135-145); TOTAL PROTEIN 6.7 g/dL (6.7-8.2)
[2018-10-01 15:26] LABS: BILIRUBIN,URINE NEGATIVE (NEGATIVE); GLUCOSE, URINE (UA) NEGATIVE (NEGATIVE); KETONES,URINE (UA) NEGATIVE (NEGATIVE); LEUKOCYTE ESTERASE, URINE NEGATIVE (NEGATIVE); NITRITE,URINE NEGATIVE (NEGATIVE); OCCULT BLOOD,URINE NEGATIVE (NEGATIVE); PH,URINE 6.5 PH (5.0-7.5); PROTEIN,URINE NEGATIVE (NEGATIVE); UROBILINOGEN,URINE 0.2 (NORMAL) E.U./dL (NORMAL)
[2018-10-01 15:37] LABS: CLARITY,URINE CLEAR (CLEAR)
[2018-10-01 16:06] VITALS: BP 136/72
== END 2018-10-01 16:49 | disposition home or self-care (01) ==
LOC: EDUNIT# → ED 13:31
DX: R55 Syncope and collapse (principal); I10 Essential (primary) hypertension; E11.65 Type 2 diabetes mellitus with hyperglycemia; I25.10 Atherosclerotic heart disease of native coronary artery without angina pectoris; Z79.4 Long term (current) use of insulin
CPT/HCPCS: 36415; 80053; 81001; 81003; 83690; 84484; 85025; 87086; 93005; 96360; 96361; 99283; 99284

== ENCOUNTER 2018-10-03 06:09 | Day surgery (SDC) | payer MEDICARE, OTHER ==
[2018-10-03] MEDS ORDERED: LACTATED RINGERS 1,000 ML IV ONE (06:22)
[2018-10-03] MEDS ORDERED: ceFAZolin 2 GM/50 ML 2 GM/50 ML BAG IV ONE ×2 (06:55→10:53)
--- NOTE | 2018-10-03 07:24 | ANESTHESIA ---
Pre-Anesthesia VS, & Labs - Diagnosis right distal humerus fracture - Procedure orif right distal humerus Vital Signs: Temp Pulse Resp BP Pulse Ox 36.3 C L 78 16 152/72 H 98 10/03/18 06:23 10/03/18 06:23 10/03/18 06:23 10/03/18 06:23 10/03/18 06:23 Height 6 ft Weight (kg) 85 kg Body Mass Index 32.5 - NPO >8 hours - Lab Results Current Lab Results: Laboratory Tests 10/03/18 06:58: POC Whole Bld Glucose 159 H Lab results reviewed: Yes Home Medications and Allergies Home Medications: Ambulatory Orders Finasteride 5 mg PO DAILY 10/03/18 Tamsulosin HCl [Flomax] 0.4 mg PO DAILY 10/03/18 Diazepam 5 mg PO BID 03/13/13 Furosemide 20 mg PO MOWEFR 03/13/13 Gabapentin [Neurontin] 300 mg PO BID 03/13/13 Insulin Aspart [Novolog] 3 unit SQ BIDAC 03/13/13 Insulin Glargine [Lantus] 6 unit SUBQ QPM 03/13/13 Levothyroxine [Synthroid] 25 mcg PO DAILY 03/13/13 Metoprolol Succinate [Toprol Xl] 100 mg PO BID 03/13/13 Omeprazole [Prilosec] 20 mg PO DAILY 03/13/13 Potassium Chloride [Micro-K] 10 meq PO MOWEFR 03/13/13 amLODIPine [Norvasc] 5 mg PO DAILY 03/13/13 Apixaban [Eliquis] 5 mg PO BID 07/04/16 Finasteride 5 mg PO DAILY 10/03/18 Tamsulosin HCl [Flomax] 0.4 mg PO DAILY 10/03/18 Allergies/Adverse Reactions: Allergies Allergy/AdvReac Type Severity Reaction Status Date / Time caffeine AdvReac Unknown Verified 10/01/18 13:43 contrast dye Allergy Severe Hives Uncoded 10/01/18 13:43 Anes History & Medical History - Anesthetic History Anesthesia Complications: reports: No previous complications Family history of Anesthesia Complications: Denies Family history of Malignant Hyperthermia: Denies - Medical History Cardiovascular: reports: Hypertension, High cholesterol, Coronary artery disease, Pulmonary embolism, Angina Pulmonary: reports: None Gastrointestinal: reports: GERD, Hiatal hernia, Diverticulitis Urinary: reports: Benign prostate hypertrophy, Frequency Musculoskeletal: reports: Osteoarthritis Endocrine/Autoimmune: reports: Type 2 diabetes, HyPOthyroidism Blood Disorders: reports: None Skin: reports: None Smoking Status: Never smoker - Surgical History General: Hiatal hernia repair Cardiothoracic: Cardiac catheterization Dermatologic: Skin cancer surgery Exam General: Alert Dental: Partials Upper Mouth Openin Fingerbreadth Neck Mobility: Normal Mallampati classification: II Thyromental Distance: greater than 6 cm Respiratory: Lungs clear, Normal breath sounds, No respiratory distress, No accessory muscle use Cardiovascular: Regular rate, Normal S1, Normal S2, No murmurs Plan Anesthesia Type: General Consent for Procedure(s) Verified and Reviewed: Yes Code Status: Attempt Resuscitation ASA classification: 3-Severe systemic disease Is this case an emergency?: No
[2018-10-03] MEDS ORDERED: BUPIVACAINE 0.5%-EPI 1:200000 PF 30 ML VIAL ONE (07:25)
[2018-10-03] MEDS ORDERED: BACITRACIN OINT TOP ONE (07:26)
[2018-10-03] MEDS ORDERED: BUPIVACAINE 0.25% PF 30 ML VIAL SUBQ ONE (10:33)
[2018-10-03] MEDS ORDERED: LIDOCAINE-MPF 2% 5 ML VIAL IM ONE (10:53)
[2018-10-03] MEDS ORDERED: fentaNYL 100 MCG/2 ML VIAL IVP ONE (10:53)
[2018-10-03] MEDS ORDERED: ONDANSETRON 4 MG/2 ML VIAL IVP ONE (10:53)
[2018-10-03] MEDS ORDERED: ACETAMINOPHEN 1,000 MG/100 ML 100 ML IV ONE (10:53)
[2018-10-03] MEDS ORDERED: PROPOFOL 200 MG/20 ML VIAL IVP ONE (10:53)
[2018-10-03] MEDS ORDERED: ROCURONIUM 50 MG/5 ML VIAL IVP ONE (10:53)
--- NOTE | 2018-10-03 10:53 | XRAY Report ---
Reason: ORIF RIGHT ELBOW Procedure Date: 10/03/2018 Accession Number: [id number] / [id number] Procedure: FL - OR C-Arm Procedure CPT Code: FULL RESULT: EXAM: FLUOROSCOPIC GUIDANCE EXAM DATE: 10/03/2018 10:13 AM. CLINICAL HISTORY: ORIF RIGHT ELBOW. COMPARISON: 09/09/2018 FINDINGS IMPRESSION: Fluoroscopic guidance provided for right elbow ORIF. Total fluoroscopy time: 4 seconds. Number of images: 2. RADIA
--- NOTE | 2018-10-03 10:54 | XRAY Report ---
Reason: ORIF RIGHT ELBOW Procedure Date: 10/03/2018 Accession Number: [id number] / [id number] Procedure: XR - Elbow 2 View RT CPT Code: FULL RESULT: EXAM: RIGHT ELBOW RADIOGRAPHY EXAM DATE: 10/03/2018 10:15 AM. CLINICAL HISTORY: ORIF RIGHT ELBOW. COMPARISON: 09/09/2018 TECHNIQUE: 2 views. FINDINGS IMPRESSION: C-arm fluoroscopic assistance is provided for ORIF right distal humeral fracture. 2 images are obtained. RADIA
[2018-10-03] MEDS ORDERED: ONDANSETRON 4 MG/2 ML VIAL IVP PRN (11:02)
[2018-10-03] MEDS: HYDROmorphone 1 MG/ML CARPUJECT ONE ×3 (11:05→11:28)
--- NOTE | 2018-10-03 11:08 | IMMEDIATE POSTOPERATIVE NOTE ---
Immediate Postoperative Note - Procedure Note Procedure Date: 10/03/18 Pre-Op Diagnosis: Right elbow supracondylar/intercondylar fracture humerus Procedure: Right distal humerus open reduction internal fixation, Ulnar nerve transpos Post-Op Diagnosis: Same Primary Surgeon: Betty Ferrell MD [employer] Manager: ANDERSON Anesthesia Type: General ET tube, Local Findings: as above Complications: No complications Estimated Blood Loss (in cc): 50 Plan of Care: Patient tolerated procedure well. Instrument and sponge counts correct. Patient transferred to recovery room in stable condition. Patient will be nonweightbearing right upper extremity. He would keep splint clean dry and intact. He would use a sling when up and about but may use pillows for elevation and immobilization at rest. He is encouraged to do hand and wrist motion.
[2018-10-03] MEDS ORDERED: INSULIN REGULAR HUMAN 100 UNIT/1 ML 10 ML MDV ONE (11:26)
[2018-10-03] MEDS: oxyCODONE 5 MG TABLET PO PRN ×2 (11:49→12:05)
[2018-10-03 12:45] VITALS: BP 124/56
--- NOTE | 2018-10-03 13:37 | OPERATIVE REPORT ---
DATE OF SERVICE: 10/03/2018 Physician: Fantasma Ferrell MD DATE OF ENCOUNTER 10/03/2018 PREOPERATIVE DIAGNOSIS: Right distal humeral supracondylar/intercondylar comminuted fracture. POSTOPERATIVE DIAGNOSIS: Right distal humeral supracondylar/intercondylar comminuted fracture. PROCEDURES PERFORMED 1. Right distal humerus open reduction and internal fixation. 2. Right elbow ulnar nerve transposition. SURGEON: Fantasma Ferrell MD FOOD PREPARATION WORKER: None. ANESTHESIOLOGIST: Samy Ewing MD ANESTHESIA TYPE: General anesthesia as well as 30 mL of 0.5% Marcaine with epinephrine local. ESTIMATED BLOOD LOSS: Less than 50 mL. COMPRESSION DEVICE: Bilateral calf SCD boots. PREOPERATIVE ANTIBIOTICS: Weight-based IV Ancef. ORTHOPEDIC IMPLANTS: Acumed periarticular plating system, posterolateral right side plate and medial plate with associated locking and nonlocking 3.5 and 2.7 mm screws. HISTORY OF PRESENT ILLNESS AND INDICATIONS: Patient is an 83-year-old gentleman with a comminuted di splaced distal humeral fracture. Secondary to awaiting medical preoperative optimization and risk st ratification, it has been a number of weeks since his injury. He was previously indicated for surger y as discussed with him and his daughter, Thea. The injury as well as planned procedure and risks, benefits, and alternatives were again highlighted in the preoperative care unit. Risks, benefits, a nd alternatives again highlighted. Their questions were answered. They both verbalized wish to proc eed with operative treatment. Informed consent was given. INTRAOPERATIVE FINDINGS: Just prior to bringing the patient back after taking the splint off to [facility] his skin while he is awake in the preoperative area, patient expresses good comfort and does some f lexion/extension of his elbow, extension to about -20 degrees, flexion to over 120 degrees, with pron ation and supination near full. Skin is noted to be intact. Intraoperatively, there was noted to be a comminuted intra-articular distal humerus fracture, and with minimal manipulation, we were able to get extension to 180 degrees, flexion to 135-140 degrees, with full pronation and supination. Given the comminution, an anatomic reduction is not possible, particularly as it relates to the ulnohumera l joint, though functionally with lack of mechanical signs, there is good range of motion as above. As such, with minimal reduction, he is fixed in place with perpendicular plate. The plates are extra -articular as are the screws and allow for full motion as above. PROCEDURE: On 10/03/2018, patient was identified in the preoperative care unit. He identified his r ight elbow, signed by the operating surgeon. Patient received preoperative weight-based IV antibioti cs, was brought to the operating room, placed initially supine on the operating table. General anest hesia was administered. Then, he was placed in a left side down lateral decubitus position with appr opriately placed axillary roll to avoid encumbrance of the axilla. Head, neck, and extremities are p laced in anatomic comfortable and safe position to avoid of peripheral nerve stretch and compression. Patient's right upper extremity has a well-padded tourniquet placed high on the right arm, taking c are to avoid encumbrance of the axilla. It is draped over a padded flat arm lim. At this point, the elbow was shaved and the elbow and right upper extremity are pre-scrubbed with chlorhexidine solu tion and prepped and draped in the usual sterile fashion. At this time, surgical pause identifies his right elbow, at which point, a curvilinear incision is ma de after Esmarch bandage is used to exsanguinate the limb with tourniquet inflation. Curvilinear inc ision avoids the tip of the olecranon and it moves away from the cubital tunnel. Spreading dissectio n carried out to the extensor mechanism, and the cubital tunnel is identified. The ulnar nerve is id entified and freed from the cubital tunnel proximally and distally in an atraumatic fashion. A vesse l loop is used and excess retraction or pressure is avoided on the nerve. The nerve is protected thr oughout the case. At this point, paratricipital approach is used to evaluate the fracture, and it is determined that adequate reduction could be obtained with adequate fixation without performing an os teotomy of the olecranon. As such, the bone is cleared. The fracture site is cleared and manipulate d minimally, and then a posterolateral plate is provisionally fixed, checked with x-ray, and then a m edial plate is placed provisionally. Then, intermittent x-ray reveals acceptable fracture reduction and hardware position, at which point, initially nonlocking screws are placed to bring the plate to t he bone, followed by locking screws, which are noted to be extra-articular. These are all tightened and K-wires removed. The elbow is examined and noted to have good range of motion with good stabilit y. There is no evidence of intra-articular hardware. The wounds are copiously irrigated. A muscle fascial sling is used to suspend the ulnar nerve away f rom the cubital tunnel. This is sutured to subcutaneous tissues, and no matter of the range of motio n, the ulnar nerve is relaxed and avoids reduction into the cubital tunnel. Copious irrigation is ca rried out. Paratricipital fascial layers are closed. Skin is copiously irrigated again and then aby sed in interrupted fashion using 0 Vicryl, 2-0 Vicryl, and then interrupted nylon sutures for skin. Skin is washed and dried. Local anesthetic is infused. Xeroform dressing is applied. Dry sterile d ressing is applied. The patient is placed in a well-padded posterior splint. Patient tolerated the procedure well. Instrument and sponge counts are correct. Patient is transfer red to the recovery room in stable condition. Patient demonstrates radial, median, and ulnar motor and sensory function in the recovery room. Good capillary refill distally, all digits. Patient's daughter, Thea, is contacted. The case is discussed. Intraoperative decision making dis cussed. Postoperative instructions reviewed. Patient already has pain medication at home. He is gi brittany splint care and activity precautions. He would be avoiding weightbearing, right upper extremity. He would elevate and/or use sling. He would be encouraged to do hand and wrist movement. He would keep splint clean, dry, and intact. Followup in 10-14 days or sooner should problems or questions a rise. Patient's daughter's questions are answered. She verbalized understanding and satisfaction wi th the plan as outlined. TD: 10/03/2018 11:49
== END 2018-10-03 06:10 | disposition home or self-care (01) ==
LOC: SDS 06:09
PROVIDERS: ATTEND Orthopaedic Surgery Sports Medicine
PROC: 0PSF04Z Reposition Right Humeral Shaft with Internal Fixation Device, Open Approach (ICD-10-PCS; principal; 2018-10-03 07:30)
DX: S42.401A Unspecified fracture of lower end of right humerus, initial encounter for closed fracture (principal); E11.9 Type 2 diabetes mellitus without complications; I10 Essential (primary) hypertension; Z86.711 Personal history of pulmonary embolism
CPT/HCPCS: 24546; 73070; A9270; C1713; J0131; J0690; J1170; J1815; J7120

== ENCOUNTER 2018-11-01 08:00 | Outpatient (CLI) | payer MEDICARE, OTHER | END 2018-11-01 23:59 | disposition home or self-care (01) | LOC: LAB 08:00 | PROVIDERS: ATTEND Nurse Practitioner | DX: N39.0 Urinary tract infection, site not specified (principal) | CPT/HCPCS: 87086 ==

== ENCOUNTER 2019-04-06 12:13 | Inpatient (IN) | payer MEDICARE, OTHER ==
--- NOTE | 2019-04-06 13:23 | ED Physician Documentation ---
History of Present Illness - Stated complaint Stated Complaint: MALE - Chief complaint Chief Complaint: UTI - History obtained from History obtained from: Patient - Additonal information Additional information: 83-year-old gentleman presents with complaints of urinary frequency and palpitations. He says the palpitations been going on for quite some time. It sounds like he was getting scheduled for a Holter monitor but there have been delays to frustrate him. He feels like his heart is jumping around. He denies chest pain or trouble breathing with it. He also has urinary frequency that is chronic, sounds like BPH. Starting last night though he had chills and feeling like he is hot. Of note he is very deaf and prefers to communicate by us writing things down to him and then him responding verbally. Review of Systems Constitutional: reports: Fever, Chills Cardiac: reports: Palpitations. denies: Chest pain / pressure Respiratory: denies: Dyspnea, Cough GI: reports: Abdominal Pain (lower). denies: Nausea, Vomiting, Constipation, Diarrhea PD PAST MEDICAL HISTORY - Past Medical History Cardiovascular: Hypertension, High cholesterol, Coronary artery disease, Pulmonary embolism, Angina Respiratory: None Endocrine/Autoimmune: Type 2 diabetes, HyPOthyroidism GI: GERD, Hiatal hernia, Diverticulitis : Benign prostate hypertrophy, Frequency HEENT: Chronic hearing loss Musculoskeletal: Osteoarthritis Derm: None - Past Surgical History General: Hiatal hernia repair Cardiovascular: Cardiac catheterization Derm: Skin cancer surgery - Present Medications Home Medications: Ambulatory Orders Medication Instructions Recorded Confirmed Furosemide 20 mg PO MOWEFR 03/13/13 03/24/19 Gabapentin [Neurontin] 300 mg PO BID 03/13/13 03/24/19 Insulin Glargine [Lantus] 4 unit SUBQ QPM 03/13/13 03/24/19 Levothyroxine [Synthroid] 25 mcg PO DAILY 03/13/13 03/24/19 Metoprolol Succinate [Toprol Xl] 50 mg PO BID 03/13/13 03/24/19 Omeprazole [Prilosec] 20 mg PO BIDWM 03/13/13 03/24/19 Potassium Chloride [Micro-K] 10 meq PO MOWEFR 03/13/13 03/24/19 amLODIPine [Norvasc] 5 mg PO DAILY 03/13/13 03/24/19 Apixaban [Eliquis] 5 mg PO BID 07/04/16 03/24/19 Oxycodone HCl/Acetaminophen 1 - 2 each PO Q6H PRN #14 tablet 09/12/18 03/24/19 [Percocet 5-325 mg Tablet] Finasteride 5 mg PO DAILY 10/03/18 03/24/19 Albuterol Sulfate [Proair 90 mcg IH Q4HR PRN 03/24/19 03/24/19 Respiclick] Cetirizine HCl 10 mg PO DAILY 03/24/19 03/24/19 Docusate Sodium [Colace Clear] 50 mg PO BID 03/24/19 03/24/19 Insulin Regular Human [NovoLIN R] 5 unit SUBQ BID 03/24/19 03/24/19 Polyethylene Glycol 3350 [Miralax] 17 gm PO DAILY 03/24/19 03/24/19 Sodium Phosphate,Boyle-Dibasic 135 ml RC ONCE PRN 03/24/19 03/24/19 [Enema Ready To Use] - Allergies Allergies/Adverse Reactions: Allergies Allergy/AdvReac Type Severity Reaction Status Date / Time caffeine AdvReac Unknown Verified 04/06/19 12:25 contrast dye Allergy Severe Hives Uncoded 10/01/18 13:43 - Social History Does the pt smoke?: No Smoking Status: Never smoker Does the pt drink ETOH?: No Does the pt have substance abuse?: No - Immunizations Immunizations are current?: Yes PD ED PE NORMAL - Vitals Vital signs reviewed: Yes - General General: Alert and oriented X 3, No acute distress - HEENT HEENT: PERRL, EOMI - Neck Neck: Supple, no meningeal sign, No bony TTP - Cardiac Cardiac: RRR, No murmur - Respiratory Respiratory: No respiratory distress, Clear bilaterally - Abdomen Abdomen: Normal bowel sounds, Soft, Other (Mild suprapubic tenderness, bladder scan done during examination shows 89ml) - Back Back: No CVA TTP, No spinal TTP - Derm Derm: Normal color, Warm and dry - Extremities Extremities: No edema, No calf tenderness / cord - Neuro Neuro: Alert and oriented X 3, Normal speech Results - Vitals Vitals: Vital Signs - 24 hr 04/06/19 12:25 Temperature 36.6 C Heart Rate 75 Respiratory 15 Rate Blood Pressure 110/59 L O2 Saturation 97 Oxygen O2 Source [] Room air O2 Source Room air - EKG (time done) 1319 Rate: Rate (enter#) (74) Rhythm: NSR [place]: Normal Intervals: Normal UT QRS: LVH Ischemia: Normal ST segments Computer interpretation: Agree with computer - Labs Labs: Laboratory Tests 04/06/19 04/06/19 04/06/19 13:23 13:23 13:23 WBC 18.9 H RBC 4.49 L Hgb 14.3 Hct 43.0 MCV 95.8 H MCH 31.8 H MCHC 33.3 RDW 13.2 Plt Count 191 MPV 9.3 Neut # (Auto) Not Reportable Lymph # (Auto) Not Reportable Boyle # (Auto) Not Reportable Eos # (Auto) Not Reportable Baso # (Auto) Not Reportable Absolute Nucleated RBC Not Reportable Total Counted 100 Band Neuts % (Manual) 0 Abnorm Lymph % (Manual) 0 Nucleated RBC % Not Reportable Neutrophils # (Manual) 14.4 H Lymphocytes # (Manual) 2.5 Monocytes # (Manual) 2.1 H Eosinophils # (Manual) 0.0 Basophils # (Manual) 0.0 Differential Comment MANUAL DIFFERENTIAL Manual Slide Review Indicated Platelet Estimate NORMAL (130-450,000) Platelet Morphology NORMAL APPEARANCE RBC Morph Micro Appear NORMAL APPEARANCE PT INR Sodium 133 L Potassium 4.6 Chloride 97 L Carbon Dioxide 26 Anion Gap 10.0 BUN 27 H Creatinine 1.3 H Estimated GFR (MDRD) 52 L Glucose 264 H Lactic Acid 2.5 H Calcium 8.7 Total Bilirubin 2.4 H AST 17 ALT 13 Alkaline Phosphatase 68 Total Protein 7.0 Albumin 3.7 Globulin 3.3 Albumin/Globulin Ratio 1.1 Lipase 23 Urine Color Urine Clarity Urine pH Ur Specific [place] Urine Protein Urine Glucose (UA) Urine Ketones Urine Occult Blood Urine Nitrite Urine Bilirubin Urine Urobilinogen Ur Leukocyte Esterase Urine RBC Urine WBC Urine WBC Clumps Ur Squamous Epith Cells Urine Bacteria Ur Microscopic Review Urine Culture Comments 04/06/19 04/06/19 13:23 14:13 WBC RBC Hgb Hct MCV MCH MCHC RDW Plt Count MPV Neut # (Auto) Lymph # (Auto) Boyle # (Auto) Eos # (Auto) Baso # (Auto) Absolute Nucleated RBC Total Counted Band Neuts % (Manual) Abnorm Lymph % (Manual) Nucleated RBC % Neutrophils # (Manual) Lymphocytes # (Manual) Monocytes # (Manual) Eosinophils # (Manual) Basophils # (Manual) Differential Comment Manual Slide Review Platelet Estimate Platelet Morphology RBC Morph Micro Appear PT 20.6 H INR 1.9 H Sodium Potassium Chloride Carbon Dioxide Anion Gap BUN Creatinine Estimated GFR (MDRD) Glucose Lactic Acid Calcium Total Bilirubin AST ALT Alkaline Phosphatase Total Protein Albumin Globulin Albumin/Globulin Ratio Lipase Urine Color YELLOW Urine Clarity HAZY Urine pH 5.5 Ur Specific [place] 1.020 Urine Protein 30 H Urine Glucose (UA) 250 H Urine Ketones NEGATIVE Urine Occult Blood SMALL H Urine Nitrite NEGATIVE Urine Bilirubin NEGATIVE Urine Urobilinogen 0.2 (NORMAL) Ur Leukocyte Esterase SMALL H Urine RBC 6-10 H Urine WBC 11-25 H Urine WBC Clumps PRESENT Ur Squamous Epith Cells MOD Squamous H Urine Bacteria Rare Ur Microscopic Review INDICATED Urine Culture Comments NOT INDICATED PD MEDICAL DECISION MAKING - ED course ED course: 83-year-old gentleman presents with complaints of ongoing palpitations but now new bladder spasms and shaking chills. No evidence of ectopy on the monitor or acute EKG but he does have evidence of a urinary tract infection with a white count of over 18,000. Spoke with Dr. Hickman for admission at 3:04 PM. Departure - Departure Disposition: 66 [facility] DC/Xfer Clinical Impression: CHI (acute kidney injury), Dehydration UTI (urinary tract infection) Qualifiers: Urinary tract infection type: site unspecified Hematuria presence: without hematuria Qualified Code(s): N39.0 - Urinary tract infection, site not specified Sepsis Qualifiers: Sepsis type: sepsis due to unspecified organism Sepsis acute organ dysfunction status: without acute organ dysfunction Qualified Code(s): A41.9 - Sepsis, unspecified organism Condition: Serious
[2019-04-06 13:34] LABS: BASOPHILS % (AUTO) 0.3 %; EOSINOPHILS % (AUTO) 0.2 %; HGB - HEMOGLOBIN 14.3 g/dL (14.0-18.0); LYMPHOCYTES % (AUTO) 9.7 %; MEAN CORPUSCULAR HEMOGLOBIN 31.8 pg (27.0-31.0); MEAN CORPUSCULAR HGB CONC 33.3 g/dL (32.0-36.0); MEAN CORPUSCULAR VOLUME 95.8 fL (80.0-94.0); MEAN PLATELET VOLUME 9.3 fL (7.4-11.4); MONOCYTES % (AUTO) 9.3 %; NEUTROPHILS % (AUTO) 79.8 %; PLT - PLATELET COUNT 191 10^3/uL (130-450); RED BLOOD COUNT 4.49 10^6/uL (4.70-6.10); RED CELL DISTRIBUTION WIDTH 13.2 % (12.0-15.0); WHITE BLOOD COUNT 18.9 x10^3/uL (4.8-10.8)
[2019-04-06 13:40] LABS: INR 1.9 (0.8-1.2); PT - PROTHROMBIN TIME 20.6 secs (9.9-12.6)
[2019-04-06 13:45] LABS: ABNORMAL LYMPHS % (MANUAL) 0 %; BAND NEUTROPHILS % (MANUAL) 0 %
[2019-04-06 13:51] LABS: ALBUMIN 3.7 g/dL (3.2-5.5); ALBUMIN/GLOBULIN RATIO 1.1 (1.0-2.2); BILIRUBIN,TOTAL 2.4 mg/dL (0.2-1.0); CALCIUM 8.7 mg/dL (8.5-10.3); CREATININE 1.3 mg/dL (0.6-1.2)
[2019-04-06 14:03] LABS: LYMPHOCYTES # (MANUAL) 2.5 10^3/uL (1.5-3.5); LYMPHOCYTES % (MANUAL) 13 %; MONOCYTES # (MANUAL) 2.1 10^3/uL (0.0-1.0)
[2019-04-06 14:04] LABS: DIFFERENTIAL COMMENT MANUAL DIFFERENTIAL; PLATELET ESTIMATE, MANUAL NORMAL (130-450,000) (NORMAL); PLATELET MORPHOLOGY NORMAL APPEARANCE (NORMAL); RBC MORPHOLOGY (MULTIPLE) NORMAL APPEARANCE (NORMAL)
[2019-04-06] MEDS ORDERED: SODIUM CHLORIDE 0.9% 1,000 ML IV ONE (14:17)
[2019-04-06 14:30] LABS: BILIRUBIN,URINE NEGATIVE (NEGATIVE); GLUCOSE, URINE (UA) 250 mg/dL (NEGATIVE); KETONES,URINE (UA) NEGATIVE (NEGATIVE); LEUKOCYTE ESTERASE, URINE SMALL (NEGATIVE); NITRITE,URINE NEGATIVE (NEGATIVE); OCCULT BLOOD,URINE SMALL (NEGATIVE); PH,URINE 5.5 PH (5.0-7.5); PROTEIN,URINE 30 mg/dL (NEGATIVE); UROBILINOGEN,URINE 0.2 (NORMAL) E.U./dL (NORMAL)
[2019-04-06 14:34] LABS: CLARITY,URINE HAZY (CLEAR)
[2019-04-06 14:42] LABS: WBC CLUMPS,URINE PRESENT
[2019-04-06 14:43] LABS: BACTERIA,URINE Rare /HPF (None Seen); SQUAMOUS EPITHELIAL CELL,UR MOD Squamous (<= Few)
[2019-04-06] MEDS ORDERED: cefTRIAXone 1 GM in SODIUM CHLORIDE 0.9% MINIBAG 100 ML IV SCH (15:00)
[2019-04-06] MEDS ORDERED: ONDANSETRON 4 MG/2 ML VIAL IVP PRN (15:04)
[2019-04-06] MEDS ORDERED: ACETAMINOPHEN 325 MG TABLET PO PRN ×2 (15:04→19:26)
[2019-04-06] MEDS ORDERED: oxyCODONE 5 MG TABLET PO PRN (15:04)
[2019-04-06] MEDS ORDERED: SODIUM CHLORIDE FLUSH 0.9% 10 ML SYRINGE IVP PRN (15:04)
[2019-04-06] MEDS ORDERED: ONDANSETRON ODT 4 MG TABLET TL PRN (15:04)
--- NOTE | 2019-04-06 15:15 | HISTORY & PHYSICAL EXAMINATION ---
History of Present Illness - Admitted From Admitted From:: Home/ER - History Obtained From Records Reviewed: [facility] History obtained from: Dr. Van Exam Limitations: He's profoundly deaf - History of Present Illness HPI Comment/Other: He is an elderly gentleman who still lives alone. He has a history of falls. He was hospitalized in 2015 for a viral infection that resulted in anorexia, dehydration and being found down with rhabdomyolysis. He then fell in September 2018. He hurt his right elbow and he felt that it cracked when he hit the floor. In the emergency room he was found to have a right supracondylar fracture of the elbow. He was seen by Dr. Stanley September 15 and he was scheduled for a right elbow open reduction internal fixation supracondylar/intercondylar distal humerus fracture with possible olecranon osteotomy. He now presents with palpitations. As well as urinary frequency and urgency. The palpitations are currently being evaluated and he is in the midst of s cheduling himself for a Holter monitor. He denies shortness of breath, edema, chest pain. The urgency and frequency seem to be more problematic over the last few days and last night he began having chills. He came to the emergency room and was evaluated by Dr. Doug Hoffman. Temperature was 36.6. Heart rate 75. Respirations 15. Blood pressure 110/59. His examination confirms a very, very deaf gentleman. Labs show him to have a mildly low sodium at 133. Creatinine is acutely elevated at 1.3. His lowest creatinine over the last 2 years is 1.1. Random glucose is 264. Lactic acid elevated at 2.5. As a diabetic he is not on metformin. White cell count is elevated at 18.9 thousand with a left shift. Urinalysis confirms moderate squamous cells but he has 11-25 white cells, 6-10 red cells, small amount of leukocyte Estrace. Small amount of occult blood. Glucosuria and proteinuria. Culture is not going to be done because of the squamous cells. Urine bacteria is rare. History - Past Medical History Cardiovascular: reports: Hypertension, High cholesterol, Coronary artery disease (insignificant on coronary angiogram 1994), Pulmonary embolism (2003, use to be on coumadin but inconsistent INR so on Eliquis started p rhabdo admit 07/2016), Angina, Arrhythmia (PVC and SVT. ECHO 09/2018 is normal, ) Respiratory: reports: Asthma (occasionally. 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 Seen by [facility] 06/2015) Endocrine/Autoimmune: reports: Type 2 diabetes, HyPOthyroidism GI: reports: GERD, Hiatal hernia (resulting in Francesca fundoplication), Diverticulitis, Other (dysphagia. Swallow study 02/23/17 showed significant penetration and oropharyngeal dysphagia. Declined to be treated by oupt Speech. Returned 01/13/19 to ENR and has progressive dysphagia. Agreeed to speech therapy that time. ) : reports: Benign prostate hypertrophy (Last seen by Urology 04/2018 and resumed on alpha fer and 5ARI, continued on ocybutinin. 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 FAther age 83 of cardiac. 1 brother age 17 of MVA. No sisters. 3 children: all healthy but none talk to him except daughter. Disowned son and sister refuses to have anything to do w him. Living arrangement: At home Living Situation: Alone, With caregiver(s) Social History Notes: Never a smoker and occasional drinker of beer. Falling in home since 2016 off and on. was in Rehab 2016 from stroke, 01/18/17. 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 Locked them out and arranged for [facility] 2 months ago from [employer], 5 days a week. Will increase to 7 days a week. Daughter Anay is POA. He is a . [employer]. - Substance History Use: Uses substance without health or social issues: NONE Abuse: Recurrent use of substance despite neg consequences: NONE Dependence: Experiences withdrawal or developed tolerances: NONE - POLST Patient has POLST: No POLST Status: DNR (POA states he wants DNR but refuses to sign POLST) Meds/Allgy - Home Medications Home Medications: Ambulatory Orders Medication Instructions Recorded Confirmed Furosemide 20 mg PO MOWEFR 03/13/13 04/06/19 Gabapentin [Neurontin] 300 mg PO BID 03/13/13 04/06/19 Insulin Glargine [Lantus] 6 unit SUBQ QPM 03/13/13 03/24/19 Levothyroxine [Synthroid] 25 mcg PO DAILY 03/13/13 04/06/19 Metoprolol Succinate [Toprol Xl] 50 mg PO DAILY 03/13/13 03/24/19 Omeprazole [Prilosec] 20 mg PO BIDWM 03/13/13 03/24/19 Potassium Chloride [Micro-K] 10 meq PO MOWEFR 03/13/13 04/06/19 amLODIPine [Norvasc] 5 mg PO DAILY 03/13/13 04/06/19 Apixaban [Eliquis] 5 mg PO BID 07/04/16 04/06/19 Finasteride 5 mg PO DAILY 10/03/18 04/06/19 Albuterol Sulfate [Proair 1 puffs INH Q4HR PRN 03/24/19 04/06/19 Respiclick] Docusate Sodium [Colace Clear] 50 mg PO BID 03/24/19 04/06/19 Insulin Regular Human [NovoLIN R] 6 unit SUBQ BID 03/24/19 03/24/19 Polyethylene Glycol 3350 [Miralax] 17 gm PO DAILY 03/24/19 04/06/19 - Allergies Allergies/Adverse Reactions: Allergies Allergy/AdvReac Type Severity Reaction Status Date / Time caffeine AdvReac Unknown Verified 04/06/19 12:25 contrast dye Allergy Severe Hives Uncoded 10/01/18 13:43 Review of Systems - Constitutional Constitutional: reports: Fatigue, Fever, Chills, Night sweats (chronic for decades), Weight loss (02/2015: 219.2 03/2015: 216.8 05/2015: 209 11/2015: 201 01/2017: 196 02/2017: 191 05/2018: 203 07/2018: 199 01/2019: 192 03/17/19: 185.6) - Eyes Eyes: denies: Irritation, Amaurosis, Blurred vision, Vision loss - Ears, Nose & Throat Ears, Nose & Throat: reports: Hearing loss, Nasal congestion (doesn't like flonase), Postnasal drainage, Hoarseness. denies: Ear pain, Tinnitus, Vertigo, Bleeding gums - Cardiovascular Cariovascular: reports: Palpitations (worsening w activity. Cardiology consult pending p monitor recommended.), Other (bradycardia resulted in metoprolol beging reduced 02/2019). denies: Exertional dyspnea, Decr. exercise tolerance, Orthopnea - Respiratory Respiratory: reports: Cough, Wheezing (hates his inhaler so doesn't use it). denies: Orthopnea, SOB at rest, SOB with exertion - Gastrointestinal Gastrointestinal: reports: Constipation (has seen md Tobin in 11/2014 and 03/2016 for this). denies: Abdominal pain, Abdominal distention, Diarrhea - Genitourinary Genitourinary: reports: Dysuria (if he drinks too much juice), Urgency, Incontinence, Other (sensation of pressure, can't go and leaks. to see Urology for followup but they say they have nothing to offer him short of TURP. at last appt 03/17/19 told by RN SANE to go to ER if has acute urinary retention. Sees Lupe Castle MD @[facility] - Musculoskeletal Musculoskeletal: reports: Back pain, Joint pain. denies: Muscle pain, Gout - Integumentary Integumentary: denies: Rash, Pruritis, Lesions - Neurological Neurological: reports: Headache (sometimes), Dizziness, Numbness (chronic of feet especially), Incoordination (and falls a lot. Refuses to use walker or cane.) - Psychiatric Psychiatric: reports: Anxiety. denies: Depression, Suicidal, Delusions, Hallucinations - Endocrine Endocrine: reports: Other (lately having shakes and ?low sugars in am. is dumas pposed to see Multiple Slide Operator for this.). denies: Polyuria, Polydypsia - Hematologic/Lymphatic Hematologic/Lymphatic: reports: Anemia, Bruising, Blood clots, Bleeding tendencies. denies: Petechiae, Lymphadenopathy Prior Level of Functionality: Deaf. No use of walker or cane, refuses to. Very unsteady and falls. Does feed self and dress self. Eats Frozen food, Deli. Once in a while his private hire will cook and he likes it. Private hires will get groceries, laundry, clean house. Exam - Vital Signs Reviewed Vital Signs: Yes Vital Signs: Vital Signs x48h Temp Pulse Resp BP Pulse Ox 04/06/19 12:25 36.6 C 75 15 110/59 L 97 - Physical Exam General Appearance: positive: No acute distress, Alert, Other (sitting up in bed, eating, watching Tv w sound off) Eyes Bilateral: positive: PERRL, EOMI ENT: positive: Dry mucous membranes, Other (chewing and swallowing while he talks to me and chokes every once in a while) Neck: positive: No JVD. negative: Stiff neck, Carotid bruit Respiratory: positive: Chest non-tender, No respiratory distress. negative: Wheezes, Rales, Rhonchi Cardiovascular: positive: Regular rate & rhythm. negative: Systolic murmur, Gallop/S4, Friction rub Peripheral Pulses: positive: 1+ Abdomen: positive: Non-tender, No organomegaly, Nml bowel sounds, No distention Skin: positive: Warm, Diaphoresis Extremities: positive: Non-tender, No pedal edema Neurologic/Psychiatric: positive: Oriented x3, Sensation nml, Weakness (generalized), Slurred/abnml speech (?from deafness, pronunciation affected.). negative: CN's nml (2-12) (completely deaf, I write everything down or type it up for him to read.), Motor nml (gait ataxia) Sepsis Event Note (H) - Evaluation Current Stage of Sepsis: Sepsis Possible source of Sepsis: positive: Genitourinary - Sepsis Criteria Sepsis Criteria: WBC count greater than 12,000 or less than 4000, Metabolic: lactate > 2 mmol/L Conclusion/Plan - Problem List (1) Sepsis Conclusion/Plan: He presents with no urgency, frequency, and documented large prostate. He has been seen by urology. Usually does not have a urinary tract infection. In reviewing the record this would be his first presentation of a UTI. Plan: Inpatient admission Sepsis protocol for genitourinary infection is Rocephin. I do not suspect Pseudomonas and as such no gentamicin at this time Sepsis protocol for repeat lactic acid in 4 hours We will review ER record to see if appropriate fluid resuscitation was done. Qualifiers: Sepsis type: sepsis due to unspecified organism Sepsis acute organ dysfunction status: without acute organ dysfunction Qualified Code(s): A41.9 - Sepsis, unspecified organism (2) UTI (urinary tract infection) Conclusion/Plan: Unfortunately urine culture will not be done because of squamous cells in the urine. We will aim for a clean-catch. But by now he is already received his first dose of antibiotics. Qualifiers: Urinary tract infection type: site unspecified Hematuria presence: without hematuria Qualified Code(s): N39.0 - Urinary tract infection, site not specified (3) BPH loc w urin obs/LUTS Conclusion/Plan: Outpatient medication includes finasteride, but he is not on his Flomax or any other alpha-fer as noted by urology last fall. This patient is very self-directed. He may have stopped his medications on his own. Difficult to say. Sertraline would contribute to urinary retention. But this man also has significant postnasal drip that makes him miserable. During his stay will monitor urinary retention, and will add Flomax for while he is here. Continue finasteride. (4) Type 2 diabetes mellitus with complication, with long-term current use of insulin Conclusion/Plan: Will resume nighttime Lantus. Supplement with before meals sliding scale insulin. Check A1c. 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 It is unclear why he will be seeking further Holter monitoring and yet another cardiology evaluation. He is on a beta-fer. Will place on telemetry to see if we can identify any arrhythmia other than was already been identified. (6) Acute worsening of stage 3 chronic kidney disease Conclusion/Plan: slight worsening of creat. Plan is IVF. (7) Dysphagia causing pulmonary aspiration with swallowing Conclusion/Plan: seen on exam tonight and it's mild. but there. Will ask for speech eval again. he refuses to eat a pureed diet and so I will keep on what he eats at home. (8) Gait instability Conclusion/Plan: work with PT while here. - Lab Results Lab results reviewed: Yes Fish Bones: 04/06/19 13:23 04/06/19 13:23 - EKG Results EKG Interpreted Independently: No EKG Comparison: Unchanged from prior EKG EKG Findings: NSR with LVH Core Measures - Anticipated LOS I expect patient to be DC'd or transferred within 96 hours.: Yes - DVT/VTE - Prophylaxis VTE/DVT Device ordered at admit?: Yes
[2019-04-06] MEDS: SODIUM CHLORIDE FLUSH 0.9% 10 ML SYRINGE IVP SCH (16:25)
[2019-04-06] MEDS: SODIUM CHLORIDE 0.9% 1,000 ML IV SCH ×2 (16:25→20:41)
[2019-04-06 16:47] LABS: HB2 TOTAL 14.5 g/dL; HEMOGLOBIN A1C 0.82 g/dL; HEMOGLOBIN A1C % 7.3 % (4.6-6.2)
[2019-04-06] MEDS: INSULIN GLARGINE 300 UNIT/3 ML PEN SUBQ SCH (20:36)
[2019-04-07] MEDS: SODIUM CHLORIDE FLUSH 0.9% 10 ML SYRINGE IVP SCH ×3 (00:52→16:33)
[2019-04-07] MEDS: SODIUM CHLORIDE 0.9% 1,000 ML IV SCH ×2 (05:34→16:24)
[2019-04-07 06:08] LABS: BASOPHILS # (AUTO) 0.1 10^3/uL (0.0-0.1); BASOPHILS % (AUTO) 0.4 %; EOSINOPHILS # (AUTO) 0.1 10^3/uL (0.0-0.7); EOSINOPHILS % (AUTO) 0.8 %; HGB - HEMOGLOBIN 13.6 g/dL (14.0-18.0); LYMPHOCYTES # (AUTO) 2.9 10^3/uL (1.5-3.5); LYMPHOCYTES % (AUTO) 16.9 %; MEAN CORPUSCULAR HGB CONC 33.8 g/dL (32.0-36.0); MEAN CORPUSCULAR VOLUME 94.6 fL (80.0-94.0); MEAN PLATELET VOLUME 9.6 fL (7.4-11.4); MONOCYTES # (AUTO) 1.4 10^3/uL (0.0-1.0); MONOCYTES % (AUTO) 8.2 %; NEUTROPHILS # (AUTO) 12.3 10^3/uL (1.5-6.6); NEUTROPHILS % (AUTO) 72.6 %; PLT - PLATELET COUNT 173 10^3/uL (130-450); RED BLOOD COUNT 4.25 10^6/uL (4.70-6.10); WHITE BLOOD COUNT 16.9 x10^3/uL (4.8-10.8)
[2019-04-07 06:17] LABS: CALCIUM 8.4 mg/dL (8.5-10.3); CREATININE 1.1 mg/dL (0.6-1.2)
[2019-04-07] MEDS: LEVOTHYROXINE 25 MCG TABLET PO SCH (07:33)
[2019-04-07] MEDS: INSULIN ASPART 300 UNIT/3 ML PEN SUBQ SCH ×5 (09:21→21:09)
[2019-04-07] MEDS: APIXABAN 5 MG TABLET PO SCH ×2 (09:22→21:07)
[2019-04-07] MEDS: GABAPENTIN 300 MG CAPSULE PO SCH ×2 (09:22→21:07)
[2019-04-07] MEDS: amLODIPine 5 MG TABLET PO SCH (09:36)
[2019-04-07] MEDS: FINASTERIDE 5 MG TABLET PO SCH (09:36)
[2019-04-07] MEDS: POLYETHYLENE GLYCOL 3350 17 GM PACKET PO SCH (09:52)
[2019-04-07] MEDS: cefTRIAXone 1 GM in SODIUM CHLORIDE 0.9% MINIBAG 100 ML IV SCH (09:54)
--- NOTE | 2019-04-07 11:18 | PROVIDER PROGRESS NOTE ---
Subjective - Prog Note Date Prog Note Date: 04/07/19 Prog Note Time: 11:20 - Subjective Pt reports feeling: Improved Subjective: he laments that he can't read lips. I have printed out his problems and given him and update via a typewritten note so he can read. Current Medications - Current Medications Current Medications: Active Medications Acetaminophen (Tylenol) 650 mg PO Q6HR PRN PRN Reason: Pain 1 to 4 Amlodipine Besylate (Norvasc) 5 mg PO DAILY [facility] Last Admin: 04/07/19 09:36 Dose: 5 mg Apixaban (Eliquis) 5 mg PO BID JOMAR Last Admin: 04/07/19 09:22 Dose: 5 mg Finasteride (Proscar) 5 mg PO DAILY [facility] Last Admin: 04/07/19 09:36 Dose: 5 mg Gabapentin (Neurontin) 300 mg PO BID JOMAR Last Admin: 04/07/19 09:22 Dose: 300 mg Ceftriaxone Sodium 1 gm/ (Sodium Chloride) 100 mls @ 200 mls/hr IV DAILY [facility] Last Infusion: 04/07/19 10:33 Dose: Infused Sodium Chloride (Normal Saline 0.9%) 1,000 mls @ 100 mls/hr IV .Q10H [facility] Last Admin: 04/07/19 05:34 Dose: 100 mls/hr Insulin Aspart (Novolog) 1 - 9 unit SUBQ 0800,1200,1700,2100 [facility]; Protocol Last Admin: 04/07/19 09:21 Dose: 1 unit Insulin Glargine (Lantus Solostar) 5 unit SUBQ QPM [facility] Last Admin: 04/06/19 20:36 Dose: 5 unit Levothyroxine Sodium (Synthroid) 25 mcg PO QDAC JOMAR Last Admin: 04/07/19 07:33 Dose: 25 mcg Metoprolol Succinate (Toprol Xl) 50 mg PO DAILY [facility] Ondansetron HCl (Zofran Inj) 4 mg IVP Q6HR PRN PRN Reason: Nausea / Vomiting Ondansetron HCl (Zofran Odt) 4 mg TL Q6HR PRN PRN Reason: Nausea / Vomiting Oxycodone HCl (Roxicodone) 5 mg PO Q4HR PRN PRN Reason: Pain 5 to 7 Polyethylene Glycol (Miralax) 17 gm PO DAILY [facility] Last Admin: 04/07/19 09:52 Dose: Not Given Sodium Chloride (Normal Saline Flush 0.9%) 10 ml IVP PRN PRN PRN Reason: NEEDED PER PROVIDER ORDERS Sodium Chloride (Normal Saline Flush 0.9%) 10 ml IVP 0100,0900,1700 JOMAR Last Admin: 04/07/19 09:22 Dose: 10 ml Furosemide 20 mg PO MOWEFR 03/13/13 Gabapentin [Neurontin] 300 mg PO BID 03/13/13 Insulin Glargine [Lantus] 6 unit SUBQ QPM 03/13/13 Levothyroxine [Synthroid] 25 mcg PO DAILY 03/13/13 Metoprolol Succinate [Toprol Xl] 50 mg PO DAILY 03/13/13 Omeprazole [Prilosec] 20 mg PO BIDWM 03/13/13 Potassium Chloride [Micro-K] 10 meq PO MOWEFR 03/13/13 amLODIPine [Norvasc] 5 mg PO DAILY 03/13/13 Apixaban [Eliquis] 5 mg PO BID 07/04/16 Finasteride 5 mg PO DAILY 10/03/18 Albuterol Sulfate [Proair Respiclick] 1 puffs INH Q4HR PRN 03/24/19 Docusate Sodium [Colace Clear] 50 mg PO BID 03/24/19 Insulin Regular Human [NovoLIN R] 6 unit SUBQ BID 03/24/19 Polyethylene Glycol 3350 [Miralax] 17 gm PO DAILY 03/24/19 Objective - Vital Signs/Intake & Output Reviewed Vital Signs: Yes Vital Signs: Vital Signs x48h Temp Pulse Resp BP BP Pulse Ox 04/07/19 07:35 36.6 C 64 20 145/59 H 96 04/07/19 05:00 36.8 C 66 18 138/62 H 98 Intake & Output: Intake & Output 04/04/19 04/05/19 04/06/19 04/07/19 23:59 23:59 23:59 23:59 Intake Total 2160 1328.333 Output Total 1000 625 Balance 1160 703.333 - Objective General Appearance: positive: No acute distress, Alert Eyes Bilateral: positive: PERRL, EOMI ENT: positive: Pharynx nml, Other (deaf) Neck: positive: No JVD. negative: Stiff neck, Carotid bruit Respiratory: positive: Chest non-tender. negative: Wheezes, Rales, Rhonchi Cardiovascular: positive: Regular rate & rhythm. negative: Systolic murmur, Gallop/S4, Friction rub Abdomen: positive: No organomegaly, Nml bowel sounds, No distention, Tenderness (suprapubic and mild (2/10)). negative: Guarding, Rebound Skin: positive: Warm, Dry, Pallor Extremities: positive: Non-tender, No pedal edema Neurologic/Psychiatric: positive: Oriented x3. negative: CN's nml (2-12) (deaf), Motor nml (ataxia, off balance when tries to sit to stand) - Lab Results Fish Bones: 04/07/19 05:43 04/07/19 05:43 Other Labs: Lab Results x24hrs 04/07/19 04/07/19 04/07/19 Range/Units 07:35 05:43 05:43 WBC 16.9 H (4.8-10.8) x10^3/uL RBC 4.25 L (4.70-6.10) 10^6/uL Hgb 13.6 L (14.0-18.0) g/dL Hct 40.2 L (42.0-52.0) % MCV 94.6 H (80.0-94.0) fL MCH 32.0 H (27.0-31.0) pg MCHC 33.8 (32.0-36.0) g/dL RDW 13.0 (12.0-15.0) % Plt Count 173 (130-450) 10^3/uL MPV 9.6 (7.4-11.4) fL Neut # (Auto) 12.3 H Lymph # (Auto) 2.9 Throckmorton # (Auto) 1.4 H Eos # (Auto) 0.1 Baso # (Auto) 0.1 Absolute Nucleated RBC 0.00 Total Counted Band Neuts % (Manual) (0 - 10) % Abnorm Lymph % (Manual) % Nucleated RBC % 0.0 Neutrophils # (Manual) (1.5-6.6) 10^3/uL Lymphocytes # (Manual) (1.5-3.5) 10^3/uL Monocytes # (Manual) (0.0-1.0) 10^3/uL Eosinophils # (Manual) (0-0.7) 10^3/uL Basophils # (Manual) (0-0.1) 10^3/uL Differential Comment Manual Slide Review Platelet Estimate (NORMAL) Platelet Morphology (NORMAL) RBC Morph Micro Appear (NORMAL) PT (9.9-12.6) secs INR (0.8-1.2) Sodium 137 (135-145) mmol/L Potassium 3.9 (3.5-5.0) mmol/L Chloride 105 (101-111) mmol/L Carbon Dioxide 23 (21-32) mmol/L Anion Gap 9.0 (6-13) BUN 21 H (6-20) mg/dL Creatinine 1.1 (0.6-1.2) mg/dL Estimated GFR (MDRD) 64 L (>89) Glucose 182 H (70-100) mg/dL POC Whole Bld Glucose 163 H (70 - 100) mg/dL Glycated Hemoglobin (4.6-6.2) % Estim Average Glucose (70-100) Lactic Acid (0.5-2.2) mmol/L Calcium 8.4 L (8.5-10.3) mg/dL Total Bilirubin (0.2-1.0) mg/dL AST (10-42) IU/L ALT (10-60) IU/L Alkaline Phosphatase (42-121) IU/L Total Protein (6.7-8.2) g/dL Albumin (3.2-5.5) g/dL Globulin (2.1-4.2) g/dL Albumin/Globulin Ratio (1.0-2.2) Lipase (22-51) U/L Urine Color Urine Clarity (CLEAR) Urine pH (5.0-7.5) PH Ur Specific Gile (1.002-1.030) Urine Protein (NEGATIVE) mg/dL Urine Glucose (UA) (NEGATIVE) mg/dL Urine Ketones (NEGATIVE) mg/dL Urine Occult Blood (NEGATIVE) Urine Nitrite (NEGATIVE) Urine Bilirubin (NEGATIVE) Urine Urobilinogen (NORMAL) E.U./dL Ur Leukocyte Esterase (NEGATIVE) Urine RBC (0-5) /HPF Urine WBC (0-3) /HPF Urine WBC Clumps Ur Squamous Epith Cells (<= Few) Urine Bacteria (None Seen) /HPF Ur Microscopic Review Urine Culture Comments 04/06/19 04/06/1919 Range/Units 20:24 17:24 16:42 WBC (4.8-10.8) x10^3/uL RBC (4.70-6.10) 10^6/uL Hgb (14.0-18.0) g/dL Hct (42.0-52.0) % MCV (80.0-94.0) fL MCH (27.0-31.0) pg MCHC (32.0-36.0) g/dL RDW (12.0-15.0) % Plt Count (130-450) 10^3/uL MPV (7.4-11.4) fL Neut # (Auto) Lymph # (Auto) Throckmorton # (Auto) Eos # (Auto) Baso # (Auto) Absolute Nucleated RBC Total Counted Band Neuts % (Manual) (0 - 10) % Abnorm Lymph % (Manual) % Nucleated RBC % Neutrophils # (Manual) (1.5-6.6) 10^3/uL Lymphocytes # (Manual) (1.5-3.5) 10^3/uL Monocytes # (Manual) (0.0-1.0) 10^3/uL Eosinophils # (Manual) (0-0.7) 10^3/uL Basophils # (Manual) (0-0.1) 10^3/uL Differential Comment Manual Slide Review Platelet Estimate (NORMAL) Platelet Morphology (NORMAL) RBC Morph Micro Appear (NORMAL) PT (9.9-12.6) secs INR (0.8-1.2) Sodium (135-145) mmol/L Potassium (3.5-5.0) mmol/L Chloride (101-111) mmol/L Carbon Dioxide (21-32) mmol/L Anion Gap (6-13) BUN (6-20) mg/dL Creatinine (0.6-1.2) mg/dL Estimated GFR (MDRD) (>89) Glucose (70-100) mg/dL POC Whole Bld Glucose 262 H 170 H (70 - 100) mg/dL Glycated Hemoglobin (4.6-6.2) % Estim Average Glucose (70-100) Lactic Acid 1.6 (0.5-2.2) mmol/L Calcium (8.5-10.3) mg/dL Total Bilirubin (0.2-1.0) mg/dL AST (10-42) IU/L ALT (10-60) IU/L Alkaline Phosphatase (42-121) IU/L Total Protein (6.7-8.2) g/dL Albumin (3.2-5.5) g/dL Globulin (2.1-4.2) g/dL Albumin/Globulin Ratio (1.0-2.2) Lipase (22-51) U/L Urine Color Urine Clarity (CLEAR) Urine pH (5.0-7.5) PH Ur Specific Gile (1.002-1.030) Urine Protein (NEGATIVE) mg/dL Urine Glucose (UA) (NEGATIVE) mg/dL Urine Ketones (NEGATIVE) mg/dL Urine Occult Blood (NEGATIVE) Urine Nitrite (NEGATIVE) Urine Bilirubin (NEGATIVE) Urine Urobilinogen (NORMAL) E.U./dL Ur Leukocyte Esterase (NEGATIVE) Urine RBC (0-5) /HPF Urine WBC (0-3) /HPF Urine WBC Clumps Ur Squamous Epith Cells (<= Few) Urine Bacteria (None Seen) /HPF Ur Microscopic Review Urine Culture Comments 04/06/19 04/06/19 04/06/19 Range/Units 15:05 14:13 13:23 WBC (4.8-10.8) x10^3/uL RBC (4.70-6.10) 10^6/uL Hgb (14.0-18.0) g/dL Hct (42.0-52.0) % MCV (80.0-94.0) fL MCH (27.0-31.0) pg MCHC (32.0-36.0) g/dL RDW (12.0-15.0) % Plt Count (130-450) 10^3/uL MPV (7.4-11.4) fL Neut # (Auto) Lymph # (Auto) Throckmorton # (Auto) Eos # (Auto) Baso # (Auto) Absolute Nucleated RBC Total Counted Band Neuts % (Manual) (0 - 10) % Abnorm Lymph % (Manual) % Nucleated RBC % Neutrophils # (Manual) (1.5-6.6) 10^3/uL Lymphocytes # (Manual) (1.5-3.5) 10^3/uL Monocytes # (Manual) (0.0-1.0) 10^3/uL Eosinophils # (Manual) (0-0.7) 10^3/uL Basophils # (Manual) (0-0.1) 10^3/uL Differential Comment Manual Slide Review Platelet Estimate (NORMAL) Platelet Morphology (NORMAL) RBC Morph Micro Appear (NORMAL) PT (9.9-12.6) secs INR (0.8-1.2) Sodium (135-145) mmol/L Potassium (3.5-5.0) mmol/L Chloride (101-111) mmol/L Carbon Dioxide (21-32) mmol/L Anion Gap (6-13) BUN (6-20) mg/dL Creatinine (0.6-1.2) mg/dL Estimated GFR (MDRD) (>89) Glucose (70-100) mg/dL POC Whole Bld Glucose 226 H (70 - 100) mg/dL Glycated Hemoglobin 7.3 H (4.6-6.2) % Estim Average Glucose 163 H (70-100) Lactic Acid (0.5-2.2) mmol/L Calcium (8.5-10.3) mg/dL Total Bilirubin (0.2-1.0) mg/dL AST (10-42) IU/L ALT (10-60) IU/L Alkaline Phosphatase (42-121) IU/L Total Protein (6.7-8.2) g/dL Albumin (3.2-5.5) g/dL Globulin (2.1-4.2) g/dL Albumin/Globulin Ratio (1.0-2.2) Lipase (22-51) U/L Urine Color YELLOW Urine Clarity HAZY (CLEAR) Urine pH 5.5 (5.0-7.5) PH Ur Specific Gile 1.020 (1.002-1.030) Urine Protein 30 H (NEGATIVE) mg/dL Urine Glucose (UA) 250 H (NEGATIVE) mg/dL Urine Ketones NEGATIVE (NEGATIVE) mg/dL Urine Occult Blood SMALL H (NEGATIVE) Urine Nitrite NEGATIVE (NEGATIVE) Urine Bilirubin NEGATIVE (NEGATIVE) Urine Urobilinogen 0.2 (NORMAL) (NORMAL) E.U./dL Ur Leukocyte Esterase SMALL H (NEGATIVE) Urine RBC 6-10 H (0-5) /HPF Urine WBC 11-25 H (0-3) /HPF Urine WBC Clumps PRESENT Ur Squamous Epith Cells MOD Squamous H (<= Few) Urine Bacteria Rare (None Seen) /HPF Ur Microscopic Review INDICATED Urine Culture Comments NOT INDICATED 04/06/19 04/06/19 04/06/19 Range/Units 13:23 13:23 13:23 WBC (4.8-10.8) x10^3/uL RBC (4.70-6.10) 10^6/uL Hgb (14.0-18.0) g/dL Hct (42.0-52.0) % MCV (80.0-94.0) fL MCH (27.0-31.0) pg MCHC (32.0-36.0) g/dL RDW (12.0-15.0) % Plt Count (130-450) 10^3/uL MPV (7.4-11.4) fL Neut # (Auto) Lymph # (Auto) Th[place]mort[place] # (Auto) Eos # (Auto) Baso # (Auto) Absolute Nucleated RBC Total Counted Band Neuts % (Manual) (0 - 10) % Abnorm Lymph % (Manual) % Nucleated RBC % Neutrophils # (Manual) (1.5-6.6) 10^3/uL Lymphocytes # (Manual) (1.5-3.5) 10^3/uL Monocytes # (Manual) (0.0-1.0) 10^3/uL Eosinophils # (Manual) (0-0.7) 10^3/uL Basophils # (Manual) (0-0.1) 10^3/uL Differential Comment Manual Slide Review Platelet Estimate (NORMAL) Platelet Morphology (NORMAL) RBC Morph Micro Appear (NORMAL) PT 20.6 H (9.9-12.6) secs INR 1.9 H (0.8-1.2) Sodium 133 L (135-145) mmol/L Potassium 4.6 (3.5-5.0) mmol/L Chloride 97 L (101-111) mmol/L Carbon Dioxide 26 (21-32) mmol/L Anion Gap 10.0 (6-13) BUN 27 H (6-20) mg/dL Creatinine 1.3 H (0.6-1.2) mg/dL Estimated GFR (MDRD) 52 L (>89) Glucose 264 H (70-100) mg/dL POC Whole Bld Glucose (70 - 100) mg/dL Glycated Hemoglobin (4.6-6.2) % Estim Average Glucose (70-100) Lactic Acid 2.5 H (0.5-2.2) mmol/L Calcium 8.7 (8.5-10.3) mg/dL Total Bilirubin 2.4 H (0.2-1.0) mg/dL AST 17 (10-42) IU/L ALT 13 (10-60) IU/L Alkaline Phosphatase 68 (42-121) IU/L Total Protein 7.0 (6.7-8.2) g/dL Albumin 3.7 (3.2-5.5) g/dL Globulin 3.3 (2.1-4.2) g/dL Albumin/Globulin Ratio 1.1 (1.0-2.2) Lipase 23 (22-51) U/L Urine Color Urine Clarity (CLEAR) Urine pH (5.0-7.5) PH Ur Specific Gile (1.002-1.030) Urine Protein (NEGATIVE) mg/dL Urine Glucose (UA) (NEGATIVE) mg/dL Urine Ketones (NEGATIVE) mg/dL Urine Occult Blood (NEGATIVE) Urine Nitrite (NEGATIVE) Urine Bilirubin (NEGATIVE) Urine Urobilinogen (NORMAL) E.U./dL Ur Leukocyte Esterase (NEGATIVE) Urine RBC (0-5) /HPF Urine WBC (0-3) /HPF Urine WBC Clumps Ur Squamous Epith Cells (<= Few) Urine Bacteria (None Seen) /HPF Ur Microscopic Review Urine Culture Comments 04/06/19 Range/Units 13:23 WBC 18.9 H (4.8-10.8) x10^3/uL RBC 4.49 L (4.70-6.10) 10^6/uL Hgb 14.3 (14.0-18.0) g/dL Hct 43.0 (42.0-52.0) % MCV 95.8 H (80.0-94.0) fL MCH 31.8 H (27.0-31.0) pg MCHC 33.3 (32.0-36.0) g/dL RDW 13.2 (12.0-15.0) % Plt Count 191 (130-450) 10^3/uL MPV 9.3 (7.4-11.4) fL Neut # (Auto) Not Reportable Lymph # (Auto) Not Reportable Throckmorton # (Auto) Not Reportable Eos # (Auto) Not Reportable Baso # (Auto) Not Reportable Absolute Nucleated RBC Not Reportable Total Counted 100 Band Neuts % (Manual) 0 (0 - 10) % Abnorm Lymph % (Manual) 0 % Nucleated RBC % Not Reportable Neutrophils # (Manual) 14.4 H (1.5-6.6) 10^3/uL Lymphocytes # (Manual) 2.5 (1.5-3.5) 10^3/uL Monocytes # (Manual) 2.1 H (0.0-1.0) 10^3/uL Eosinophils # (Manual) 0.0 (0-0.7) 10^3/uL Basophils # (Manual) 0.0 (0-0.1) 10^3/uL Differential Comment MANUAL DIFFERENTIAL Manual Slide Review Indicated Platelet Estimate NORMAL (130-450,000) (NORMAL) Platelet Morphology NORMAL APPEARANCE (NORMAL) RBC Morph Micro Appear NORMAL APPEARANCE (NORMAL) PT (9.9-12.6) secs INR (0.8-1.2) Sodium (135-145) mmol/L Potassium (3.5-5.0) mmol/L Chloride (101-111) mmol/L Carbon Dioxide (21-32) mmol/L Anion Gap (6-13) BUN (6-20) mg/dL Creatinine (0.6-1.2) mg/dL Estimated GFR (MDRD) (>89) Glucose (70-100) mg/dL POC Whole Bld Glucose (70 - 100) mg/dL Glycated Hemoglobin (4.6-6.2) % Estim Average Glucose (70-100) Lactic Acid (0.5-2.2) mmol/L Calcium (8.5-10.3) mg/dL Total Bilirubin (0.2-1.0) mg/dL AST (10-42) IU/L ALT (10-60) IU/L Alkaline Phosphatase (42-121) IU/L Total Protein (6.7-8.2) g/dL Albumin (3.2-5.5) g/dL Globulin (2.1-4.2) g/dL Albumin/Globulin Ratio (1.0-2.2) Lipase (22-51) U/L Urine Color Urine Clarity (CLEAR) Urine pH (5.0-7.5) PH Ur Specific Gile (1.002-1.030) Urine Protein (NEGATIVE) mg/dL Urine Glucose (UA) (NEGATIVE) mg/dL Urine Ketones (NEGATIVE) mg/dL Urine Occult Blood (NEGATIVE) Urine Nitrite (NEGATIVE) Urine Bilirubin (NEGATIVE) Urine Urobilinogen (NORMAL) E.U./dL Ur Leukocyte Esterase (NEGATIVE) Urine RBC (0-5) /HPF Urine WBC (0-3) /HPF Urine WBC Clumps Ur Squamous Epith Cells (<= Few) Urine Bacteria (None Seen) /HPF Ur Microscopic Review Urine Culture Comments ABX Reporting Has patient been on IV antibiotics over the past 48 hours?: Yes Sepsis Event Note (H) - Evaluation Current Stage of Sepsis: Resolved Possible source of Sepsis: positive: Genitourinary - Sepsis Criteria Sepsis Criteria: WBC count greater than 12,000 or less than 4000, Metabolic: lactate > 2 mmol/L Assessment/Plan - Problem List (1) Sepsis Impression: Resolved He presents with urgency, frequency, and documented large prostate. He has been seen by urology. Usually does not have a urinary tract infection. In reviewing the record this would be his first presentation of a UTI. Plan: Inpatient admission, Day #2 Sepsis protocol for genitourinary infection is Rocephin. Day #2. I do not suspect Pseudomonas and as such no gentamicin at this time Sepsis protocol for repeat lactic acid in 4 hours and repeat was normal at 1.4 Qualifiers: Sepsis type: sepsis due to unspecified organism Sepsis acute organ dysfunction status: without acute organ dysfunction Qualified Code(s): A41.9 - Sepsis, unspecified organism (2) UTI (urinary tract infection) Conclusion/Plan: Unfortunately urine culture will not be done because of squamous cells in the urine. We will aim for a clean-catch. Not done. But by now he is already received his first dose of antibiotics. He has improved and I anticipate discharge tomorrow and he will be sent home on levaquin 500 for 10 days. Qualifiers: Urinary tract infection type: site unspecified Hematuria presence: without hematuria Qualified Code(s): N39.0 - Urinary tract infection, site not specified (3) BPH loc w urin obs/LUTS Conclusion/Plan: Outpatient medication includes finasteride, but he is not on his Flomax or any other alpha-fer as noted by urology last fall. This patient is very self-directed. He may have stopped his medications on his own. Difficult to say. Zyrtec would contribute to urinary retention. But this man also has significant postnasal drip that makes him miserable and he uses benadryl and zyrtec for that. Both of those med would make LUTS worse. During his stay will monitor urinary retention, and will add Flomax for while he is here. Continue finasteride. (4) Type 2 diabetes mellitus with complication, with long-term current use of insulin Conclusion/Plan: Will resume nighttime Lantus. Supplement with before meals sliding scale insulin. A1c 7.3% April 3: 226, 170, 262 April 07: 163, 234 Increase lantus from 5 units to 7 units. 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 It is unclear why he will be seeking further Holter monitoring and yet another cardiology evaluation. He is on a beta-fer. Will place on telemetry to see if we can identify any arrhythmia other than was already been identified. 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 (6) Acute worsening of stage 3 chronic kidney disease Conclusion/Plan: Improved. slight worsening of creat. on admission at 1.3. Today he is 1.1 Can dc IVF (7) Dysphagia causing pulmonary aspiration with swallowing Conclusion/Plan: seen on exam tonight and it's mild. but there. Will ask for speech eval again. he refuses to eat a pureed diet and so I will keep on what he eats at home. (8) Gait instability Conclusion/Plan: work with PT while here.
[2019-04-07] MEDS: METOPROLOL SUCCINATE 50 MG TABLET PO SCH (12:19)
[2019-04-07] MEDS: INSULIN GLARGINE 300 UNIT/3 ML PEN SUBQ SCH (21:10)
[2019-04-08] MEDS: SODIUM CHLORIDE FLUSH 0.9% 10 ML SYRINGE IVP SCH ×2 (00:55→08:14)
[2019-04-08] MEDS: SODIUM CHLORIDE 0.9% 1,000 ML IV SCH (02:13)
[2019-04-08 05:37] LABS: BASOPHILS % (AUTO) 0.3 %; EOSINOPHILS # (AUTO) 0.3 10^3/uL (0.0-0.7); EOSINOPHILS % (AUTO) 2.8 %; HGB - HEMOGLOBIN 13.2 g/dL (14.0-18.0); LYMPHOCYTES # (AUTO) 2.1 10^3/uL (1.5-3.5); LYMPHOCYTES % (AUTO) 20.3 %; MEAN CORPUSCULAR HEMOGLOBIN 31.7 pg (27.0-31.0); MEAN CORPUSCULAR HGB CONC 33.4 g/dL (32.0-36.0); MEAN CORPUSCULAR VOLUME 94.7 fL (80.0-94.0); MEAN PLATELET VOLUME 9.6 fL (7.4-11.4); MONOCYTES # (AUTO) 0.9 10^3/uL (0.0-1.0); MONOCYTES % (AUTO) 8.3 %; NEUTROPHILS % (AUTO) 67.9 %; PLT - PLATELET COUNT 172 10^3/uL (130-450); RED BLOOD COUNT 4.17 10^6/uL (4.70-6.10); RED CELL DISTRIBUTION WIDTH 12.8 % (12.0-15.0); WHITE BLOOD COUNT 10.3 x10^3/uL (4.8-10.8)
[2019-04-08 05:40] LABS: CALCIUM 8.7 mg/dL (8.5-10.3)
[2019-04-08] MEDS: LEVOTHYROXINE 25 MCG TABLET PO SCH (06:58)
--- NOTE | 2019-04-08 08:05 | Discharge Plan ---
Discharge Plan Problem Reviewed?: Yes Disposition: 06 Home Health Service Condition: Good Prescriptions: Ciprofloxacin [Cipro] 500 mg PO Q12H #32 tablet Diet: Regular Activity Restrictions: Activity as Tolerated Shower Restrictions: No Driving Restrictions: Yes (no driving) Health Concerns: You came to our emergency room because you were having quite a bit of palpitations. You are also having quite a bit of urinary frequency, urgency. The palpitations have been going on for quite some time. You are in the midst of seeing your primary care provider and getting evaluated to possibly see a materials handling coordinator. We found you to have: #1 urinary tract infection in the face of someone who has a very large prostate. #2 palpitations that are of long-standing duration, years, and you have already been evaluated for this in the past. You have extra heartbeats. It is a normal variant. Plan of Treatment: You received antibiotics for the urinary tract infection. In a gentleman who has a large prostate, antibiotics must be continued for at least a total of 10 days. As such you received 2 days of antibiotics here. You will be sent home on 8 days of antibiotics in the form of ciprofloxacin. For your large prostate, you have been placed on finasteride and Flomax. Your urologist sees you almost every year and last saw you April 2018, and recommended specific medications for you that you sometimes take. Your urologist recognizes that there is not much more they can do for your prostate size and your symptoms of urgency, frequency, urinating at night, and the next step would be surgery if you wanted that done. As for your palpitations, they have been present for decades. Again, you have seen a materials handling coordinator, and Dr. Lo in the past for this. An ultrasound of your heart to look at your muscles was normal in September 2018. And you have known extra heartbeats. And an occasional run of fast heart rates. You are on the correct medication for this. Care Goals: To complete treatment for prostate and urine infection. To remain independent in your home for as long as possible. In order to do that you must get stronger, and Home Health Physical therapy will be going to your house for that. Assessment: Patient is deaf and read these instructions, expresses understanding. Follow-Up Care: Home Health - PT No Smoking: If you smoke, Please STOP! Call for help. Follow-up with: Lea Khan ARNP, PERINATAL TECH-C [Primary Care Provider] -
[2019-04-08] MEDS: INSULIN ASPART 300 UNIT/3 ML PEN SUBQ SCH ×2 (08:11→12:02)
[2019-04-08] MEDS: POLYETHYLENE GLYCOL 3350 17 GM PACKET PO SCH (08:12)
[2019-04-08] MEDS: METOPROLOL SUCCINATE 50 MG TABLET PO SCH (08:13)
[2019-04-08] MEDS: GABAPENTIN 300 MG CAPSULE PO SCH (08:13)
[2019-04-08] MEDS: amLODIPine 5 MG TABLET PO SCH (08:13)
[2019-04-08] MEDS: cefTRIAXone 1 GM in SODIUM CHLORIDE 0.9% MINIBAG 100 ML IV SCH (08:13)
[2019-04-08] MEDS: APIXABAN 5 MG TABLET PO SCH (08:13)
[2019-04-08] MEDS: FINASTERIDE 5 MG TABLET PO SCH (08:13)
[2019-04-08 12:19] VITALS: BP 158/77
--- NOTE | 2019-04-08 16:05 | DISCHARGE SUMMARY ---
Discharge Summary Admit Date: 04/06/19 Discharge Date: 04/08/19 Discharging Provider: Marychuy Hickman MD Primary Care Provider: Lea Khan Code Status: Do Not Attempt Resuscitation Condition at Discharge: Good Discharge Disposition: 06 Home Health Service - DIAGNOSES Discharge Diagnoses with Status of Each Condition: 1. Sepsis, resolved 2. UTI with E. coli and pseudomonas aeruginosa 3. Benign prostatic hypertrophy with lower urinary tract symptoms of obstruction, chronic 4. Type 2 diabetes mellitus with complication, with long-term use of insulin, chronic 5. Palpitations, chronic 6. Acute on chronic stage III kidney disease, resolved 7. Dysphagia causing pulmonary aspiration with swallowing, chronic 8. Gait instability, chronic - HPI History of Present Illness: He is an elderly gentleman who still lives alone. He has a history of falls. He was hospitalized in 2015 for a viral infection that resulted in anorexia, dehydration and being found down with rhabdomyolysis. He then fell in September 2018. He hurt his right elbow and he felt that it cracked when he hit the floor. In the emergency room he was found to have a right supracondylar fracture of the elbow. He was seen by Dr. Stanley September 15 and he was scheduled for a right elbow open reduction internal fixation supracondylar/intercondylar distal humerus fracture with possible olecranon osteotomy. He now presents with palpitations. As well as urinary frequency and urgency. The palpitations are currently being evaluated and he is in the midst of scheduling himself for a Holter monitor. He denies shortness of breath, edema, chest pain. The urgency and frequency seem to be more problematic over the last few days and last night he began having chills. He came to the emergency room and was evaluated by Dr. Doug Hoffman. T emperature was 36.6. Heart rate 75. Respirations 15. Blood pressure 110/59. His examination confirms a very, very deaf gentleman. Labs show him to have a mildly low sodium at 133. Creatinine is acutely elevated at 1.3. His lowest creatinine over the last 2 years is 1.1. Random glucose is 264. Lactic acid elevated at 2.5. As a diabetic he is not on metformin. White cell count is elevated at 18.9 thousand with a left shift. Urinalysis confirms moderate squamous cells but he has 11-25 white cells, 6-10 red cells, small amount of leukocyte Estrace. Small amount of occult blood. Glucosuria and proteinuria. Culture is not going to be done because of the squamous cells. Urine bacteria is rare. History - Past Medical History Cardiovascular: reports: Hypertension, High cholesterol, Coronary artery disease (insignificant on coronary angiogram 1994), Pulmonary embolism (2003, use to be on coumadin but inconsistent INR so on Eliquis started p rhabdo admit 07/2016), Angina, Arrhythmia (PVC and SVT. ECHO 09/2018 is normal, ) Respiratory: reports: Asthma (occasionally. 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 Seen by [facility] 06/2015) Endocrine/Autoimmune: reports: Type 2 diabetes, HyPOthyroidism GI: reports: GERD, Hiatal hernia (resulting in Francesca fundoplication), Diverticulitis, Other (dysphagia. Swallow study 02/23/17 showed significant penetration and oropharyngeal dysphagia. Declined to be treated by oupt Speech. Returned 01/13/19 to ENR and has progressive dysphagia. Agreeed to speech therapy that time. ) : reports: Benign prostate hypertrophy (Last seen by Urology 04/2018 and resumed on alpha fer and 5ARI, continued on ocybutinin. 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 His urine grew out E. coli and Pseudomonas. He is discharged on Cipro for total of 10 days. His diabetes was controlled, had mild acute on chronic stage III kidney disease that resolved. He was on telemetry for 2 days and there were no arrhythmias. He has chronic dysphagia causing pulmonary aspiration and was not able to be seen by speech therapy. He has been seen by speech per therapy twice before. He is very fixated on his bowels. He brought in photos for us to look at. Apparently there is a bowel movement from last September that he took a picture of. It is a single dark stool in the toilet bowl. He is concerned that is that is too dark. I really cannot tell from the lighting in the photo. As for his palpitations that he complained of, there was no arrhythmia after 2 days of telemetry, 25/01. He has known PVCs on EKGs in the past. During his stay, occasional cough with swallowing food. He was not able to be seen by speech pathology. He has chronic gait instability. Was seen by physical therapy. He is a very cranky ross that does not like to see physical therapy. But is at risk for falls. He walks with impulsivity, wide based gait. Refuses a gait belt. Physical therapy at the hospital recommends that he be seen for physical therapy in the outpatient setting. This elderly gentleman lives alone. Is deaf. Does not drive. He is homebound. He is dependent on others to get him out of the house. He does not leave very often except for may be to go to doctor's visits. - ALLERGIES Allergies/Adverse Reactions: Allergies Allergy/AdvReac Type Severity Reaction Status Date / Time caffeine AdvReac Unknown Verified 04/06/19 12:25 contrast dye Allergy Severe Hives Uncoded 10/01/18 13:43 - MEDICATIONS Home Medications: Ambulatory Orders Medication Instructions Recorded Confirmed Furosemide 20 mg PO MOWEFR 03/13/13 04/06/19 Gabapentin [Neurontin] 300 mg PO BID 03/13/13 04/06/19 Insulin Glargine [Lantus] 6 unit SUBQ QPM 03/13/13 04/07/19 Levothyroxine [Synthroid] 25 mcg PO DAILY 03/13/13 04/06/19 Metoprolol Succinate [Toprol Xl] 50 mg PO DAILY 03/13/13 04/07/19 Omeprazole [Prilosec] 20 mg PO BIDWM 03/13/13 04/07/19 Potassium Chloride [Micro-K] 10 meq PO MOWEFR 03/13/13 04/06/19 amLODIPine [Norvasc] 5 mg PO DAILY 03/13/13 04/06/19 Apixaban [Eliquis] 5 mg PO BID 07/04/16 04/06/19 Finasteride 5 mg PO DAILY 10/03/18 04/06/19 Albuterol Sulfate [Proair 1 puffs INH Q4HR PRN 03/24/19 04/06/19 Respiclick] Docusate Sodium [Colace Clear] 50 mg PO BID 03/24/19 04/06/19 Insulin Regular Human [NovoLIN R] 6 unit SUBQ BID 03/24/19 04/07/19 Polyethylene Glycol 3350 [Miralax] 17 gm PO DAILY 03/24/19 04/06/19 Ciprofloxacin [Cipro] 500 mg PO Q12H #32 tablet 04/08/19 - PHYSICAL EXAM AT DISCHARGE General Appearance: positive: No acute distress, Alert, Other (completely deaf) Eyes Bilateral: positive: PERRL, EOMI ENT: positive: Pharynx nml, Other (voice intonation not normal, ?bc of deafness) Neck: positive: No JVD. negative: Stiff neck, Carotid bruit Respiratory: positive: Chest non-tender. negative: Wheezes, Rales, Rhonchi Cardiovascular: positive: Regular rate & rhythm, Systolic murmur. negative: Gallop/S4, Friction rub Peripheral Pulses: positive: 1+ Abdomen: positive: Non-tender, No organomegaly, Nml bowel sounds, Other (eating 100% of food) Skin: positive: Warm, Dry Neurologic/Psychiatric: positive: Oriented x3, Slurred/abnml speech (chronic and unchanged from admission). negative: CN's nml (2-12) (deaf), Motor nml (ataxia) - LABS Result Diagrams: 04/08/19 05:10 04/08/19 05:10 - SEPSIS Current Stage of Sepsis: Resolved Possible source of Sepsis: Genitourinary Sepsis Criteria: WBC count greater than 12,000 or less than 4000, Metabolic: lactate > 2 mmol/L - TIME SPENT Time Spent in Discharge (Minutes): 35
== END 2019-04-08 12:45 | disposition home health service (06) | DRG 872 ==
LOC: ED 12:13 → MS2 15:04
PROVIDERS: ADMIT Specialist; ATTEND Specialist
DX: A41.9 Sepsis, unspecified organism (principal); A41.51 Sepsis due to Escherichia coli [E. coli]; N39.0 Urinary tract infection, site not specified; E86.0 Dehydration; I10 Essential (primary) hypertension; E11.9 Type 2 diabetes mellitus without complications; N17.9 Acute kidney failure, unspecified; E87.2 Acidosis; E87.1 Hypo-osmolality and hyponatremia; I47.1 Supraventricular tachycardia; A41.52 Sepsis due to Pseudomonas; R35.0 Frequency of micturition; R65.20 Severe sepsis without septic shock; I12.9 Hypertensive chronic kidney disease with stage 1 through stage 4 chronic kidney disease, or unspecified chronic kidney disease; R00.2 Palpitations; I49.3 Ventricular premature depolarization; E11.22 Type 2 diabetes mellitus with diabetic chronic kidney disease; N18.3 Chronic kidney disease, stage 3 (moderate); I25.119 Atherosclerotic heart disease of native coronary artery with unspecified angina pectoris; E03.9 Hypothyroidism, unspecified; E78.00 Pure hypercholesterolemia, unspecified; K21.9 Gastro-esophageal reflux disease without esophagitis; N40.1 Benign prostatic hyperplasia with lower urinary tract symptoms; N13.9 Obstructive and reflux uropathy, unspecified; R33.9 Retention of urine, unspecified; R13.10 Dysphagia, unspecified; R26.89 Other abnormalities of gait and mobility; H91.90 Unspecified hearing loss, unspecified ear; J45.909 Unspecified asthma, uncomplicated; M19.90 Unspecified osteoarthritis, unspecified site; Z66 Do not resuscitate; Z79.4 Long term (current) use of insulin; Z79.01 Long term (current) use of anticoagulants; Z79.891 Long term (current) use of opiate analgesic; Z79.51 Long term (current) use of inhaled steroids; Z85.828 Personal history of other malignant neoplasm of skin; Z86.711 Personal history of pulmonary embolism; Z86.2 Personal history of diseases of the blood and blood-forming organs and certain disorders involving the immune mechanism; Z91.81 History of falling
CPT/HCPCS: 36415; 51701; 80048; 80053; 81001; 83036; 83605; 83690; 85025; 85610; 87040; 87077; 87086; 87181; 93005; 97162; 99284; 99285; A9270; J1815; 81003

== ENCOUNTER 2019-05-23 07:00 | Outpatient (CLI) | payer MEDICARE, OTHER ==
[2019-05-23 12:44] LABS: BASOPHILS # (AUTO) 0.1 10^3/uL (0.0-0.1); BASOPHILS % (AUTO) 0.6 %; EOSINOPHILS # (AUTO) 0.3 10^3/uL (0.0-0.7); EOSINOPHILS % (AUTO) 2.7 %; LYMPHOCYTES # (AUTO) 2.1 10^3/uL (1.5-3.5); LYMPHOCYTES % (AUTO) 21.8 %; MEAN CORPUSCULAR HEMOGLOBIN 30.9 pg (27.0-31.0); MEAN CORPUSCULAR HGB CONC 32.6 g/dL (32.0-36.0); MEAN CORPUSCULAR VOLUME 94.9 fL (80.0-94.0); MEAN PLATELET VOLUME 9.7 fL (7.4-11.4); MONOCYTES # (AUTO) 0.7 10^3/uL (0.0-1.0); MONOCYTES % (AUTO) 6.7 %; NEUTROPHILS # (AUTO) 6.7 10^3/uL (1.5-6.6); NEUTROPHILS % (AUTO) 67.8 %; PLT - PLATELET COUNT 222 10^3/uL (130-450); RED BLOOD COUNT 4.53 10^6/uL (4.70-6.10); RED CELL DISTRIBUTION WIDTH 12.8 % (12.0-15.0); WHITE BLOOD COUNT 9.8 x10^3/uL (4.8-10.8)
[2019-05-23 12:45] LABS: BILIRUBIN,URINE NEGATIVE (NEGATIVE); GLUCOSE, URINE (UA) NEGATIVE (NEGATIVE); KETONES,URINE (UA) NEGATIVE (NEGATIVE); LEUKOCYTE ESTERASE, URINE NEGATIVE (NEGATIVE); NITRITE,URINE NEGATIVE (NEGATIVE); OCCULT BLOOD,URINE SMALL (NEGATIVE); PH,URINE 5.5 PH (5.0-7.5); PROTEIN,URINE TRACE mg/dL (NEGATIVE); UROBILINOGEN,URINE 0.2 (NORMAL) E.U./dL (NORMAL)
[2019-05-23 12:53] LABS: CLARITY,URINE HAZY (CLEAR)
[2019-05-23 12:58] LABS: BACTERIA,URINE Rare /HPF (None Seen); SQUAMOUS EPITHELIAL CELL,UR FEW Squamous (<= Few)
[2019-05-23 13:00] LABS: CALCIUM 8.8 mg/dL (8.5-10.3)
[2019-05-23 13:13] LABS: ALBUMIN 3.7 g/dL (3.2-5.5); ALBUMIN/GLOBULIN RATIO 1.2 (1.0-2.2); BILIRUBIN,TOTAL 1.3 mg/dL (0.2-1.0); CREATININE 1.1 mg/dL (0.6-1.2); TOTAL PROTEIN 6.9 g/dL (6.7-8.2)
== END 2019-05-23 23:59 | disposition home or self-care (01) ==
LOC: LAB.WCP 07:00
PROVIDERS: ATTEND Nurse Practitioner
DX: E11.9 Type 2 diabetes mellitus without complications (principal); I10 Essential (primary) hypertension; R30.0 Dysuria; N39.0 Urinary tract infection, site not specified
CPT/HCPCS: 36415; 80053; 81001; 81003; 85025; 87086

== ENCOUNTER 2019-08-31 13:15 | Outpatient (CLI) | payer MEDICARE, OTHER ==
[~2019-08-31 13:15] MED LIST: ALBUTEROL NEB 2.5 MG/3 ML INH SCH
== END 2019-08-31 13:16 | disposition home or self-care (01) ==
LOC: RT 13:15
PROVIDERS: ATTEND Nurse Practitioner
DX: J44.9 Chronic obstructive pulmonary disease, unspecified (principal)
CPT/HCPCS: 94010; 94729

== ENCOUNTER 2019-10-04 07:00 | Outpatient (CLI) | payer MEDICARE, OTHER ==
[2019-10-04 16:45] LABS: BASOPHILS # (AUTO) 0.1 10^3/uL (0.0-0.1); BASOPHILS % (AUTO) 0.6 %; EOSINOPHILS # (AUTO) 0.3 10^3/uL (0.0-0.7); HGB - HEMOGLOBIN 14.8 g/dL (14.0-18.0); LYMPHOCYTES # (AUTO) 2.5 10^3/uL (1.5-3.5); LYMPHOCYTES % (AUTO) 28.7 %; MEAN CORPUSCULAR HEMOGLOBIN 31.6 pg (27.0-31.0); MEAN CORPUSCULAR HGB CONC 33.4 g/dL (32.0-36.0); MEAN CORPUSCULAR VOLUME 94.5 fL (80.0-94.0); MEAN PLATELET VOLUME 9.6 fL (7.4-11.4); MONOCYTES # (AUTO) 0.8 10^3/uL (0.0-1.0); NEUTROPHILS % (AUTO) 58.2 %; PLT - PLATELET COUNT 220 10^3/uL (130-450); RED BLOOD COUNT 4.69 10^6/uL (4.70-6.10); RED CELL DISTRIBUTION WIDTH 12.9 % (12.0-15.0); WHITE BLOOD COUNT 8.6 x10^3/uL (4.8-10.8)
[2019-10-04 17:01] LABS: ALBUMIN 4.1 g/dL (3.2-5.5); ALBUMIN/GLOBULIN RATIO 1.3 (1.0-2.2); BILIRUBIN,TOTAL 0.8 mg/dL (0.2-1.0); CREATININE 1.3 mg/dL (0.6-1.2); HB2 TOTAL 15.1 g/dL; HEMOGLOBIN A1C 0.85 g/dL; HEMOGLOBIN A1C % 7.3 % (4.6-6.2); TOTAL PROTEIN 7.3 g/dL (6.7-8.2)
== END 2019-10-04 23:59 | disposition home or self-care (01) ==
LOC: LAB.WCP 07:00
PROVIDERS: ATTEND Nurse Practitioner
DX: E11.9 Type 2 diabetes mellitus without complications (principal); N40.1 Benign prostatic hyperplasia with lower urinary tract symptoms; J44.9 Chronic obstructive pulmonary disease, unspecified; R06.02 Shortness of breath
CPT/HCPCS: 36415; 80053; 83036; 85025

== ENCOUNTER 2019-10-09 15:34 | Outpatient (CLI) | payer MEDICARE, OTHER ==
--- NOTE | 2019-10-09 19:27 | Ultrasound Report ---
Reason: SCROTAL PAIN,SWELLING OF INGUINAL REGION Procedure Date: 10/09/2019 Accession Number: [id number] / [id number] Procedure: US - Testicle CPT Code: Final Report FULL RESULT: EXAM: SCROTAL ULTRASOUND EXAM DATE: 10/09/2019 04:31 PM. CLINICAL HISTORY: SCROTAL PAIN, SWELLING OF INGUINAL REGION. COMPARISON: None. TECHNIQUE: Real-time scanning was performed with static images obtained. Color-flow images were utilized. FINDINGS: Right: Testis: 3.2 x 2.2 x 3 cm. Normal size and echotexture. No mass, calcification, or abnormal blood flow. Epididymis: 0.9 x 1.5 x 1.2 cm. Normal size and echotexture. No mass or abnormal blood flow. Hydrocele: Small Varicocele: Not definitely identified Left: Testis: 3.2 x 2.1 x 3.1 cm. Normal size and echotexture. No mass, calcification, or abnormal blood flow. Epididymis: 0.9 x 1.3 x 1.5 cm. Normal size and echotexture. No mass or abnormal blood flow. Hydrocele: Small Varicocele: Not definitely identified Patient was unable able to cooperate for inguinal exam due to deafness and could not read written instruction IMPRESSION: 1. Normal bilateral testes. 2. Small bilateral hydroceles. Unable to do inguinal ultrasound with Valsalva due to patient inability to understand RADIA
== END 2019-10-09 15:35 | disposition home or self-care (01) ==
LOC: DI 15:34
PROVIDERS: ATTEND Nurse Practitioner
DX: N43.3 Hydrocele, unspecified (principal); N50.82 Scrotal pain; R19.09 Other intra-abdominal and pelvic swelling, mass and lump
CPT/HCPCS: 76870

== ENCOUNTER 2020-02-21 11:00 | Outpatient (CLI) | payer MEDICARE, OTHER ==
--- NOTE | 2020-02-21 13:03 | Ultrasound Report ---
PROCEDURE: Duplex Lwr Ext Arterial Bilat INDICATIONS: RLE PAIN TECHNIQUE: Color and pulse Doppler interrogation was performed of both lower extremity arterial systems, with im age documentation. COMPARISON: Venous ultrasound same day. FINDINGS: Right lower extremity: Common femoral artery: 64 cm/sec, with biphasic flow. Deep femoral artery: 54 cm/sec, with biphasic flow. Proximal superficial femoral artery: 93 cm/sec, with biphasic flow. Mid superficial femoral artery: 90 cm/sec, with biphasic/triphasic flow. Distal superficial femoral artery: 83 cm/sec, with triphasic flow. Popliteal artery: 60 cm/sec, with triphasic flow. Posterior tibial artery: 84 cm/sec, with triphasic flow. Anterior tibial artery/dorsalis pedis: 89 cm/sec, with triphasic flow. Syed-scale imaging description: Mild soft plaque. Left lower extremity: Common femoral artery: 68 cm/sec, with triphasic flow. Deep femoral artery: 64 cm/sec, with biphasic flow. Proximal superficial femoral artery: 101 cm/sec, with triphasic flow. Mid superficial femoral artery: 105 cm/sec, with biphasic flow. Distal superficial femoral artery: 59 cm/sec, with triphasic flow. Popliteal artery: 53 cm/sec, with triphasic flow. Posterior tibial artery: 81 cm/sec, with triphasic flow. Anterior tibial artery/dorsalis pedis: 102 cm/sec, with triphasic flow. Syed-scale imaging description: Mild soft plaque IMPRESSION: Mild soft plaque bilaterally but no source of lower extremity arterial insufficiency is identified. Reviewed by: Rey Louise MD on 02/21/2020 1:01 PM PDT Approved by: Rey Louise MD on 02/21/2020 1:01 PM PDT Station ID: [id number]
--- NOTE | 2020-02-21 13:04 | Ultrasound Report ---
PROCEDURE: Duplex Ext Veins Right INDICATIONS: RLE PAIN TECHNIQUE: Real-time imaging, as well as color and pulse Doppler interrogation, were performed of the lower extr emity deep veins from the inguinal ligament to the popliteal fossa. COMPARISON: None. FINDINGS: The deep veins are normally compressible, and free of intraluminal thrombus. Color and pu lse Doppler demonstrate normal phasic intraluminal flow. There is normal augmentation response to di stal compression maneuver. A popliteal cyst is present, Mccollum's cyst, measuring up to 3.2 x 3.4 x 7. 5 cm representing the area of tenderness. IMPRESSION: A moderate-sized Mccollum cyst at the medial popliteal fossa is associated with significant tenderness. No DVT found. Please correlate clinically to determine whether the Mccollum's cyst is actua lly the source of current symptomatology. Reviewed by: Rey Louise MD on 02/21/2020 1:03 PM PDT Approved by: Rey Louise MD on 02/21/2020 1:03 PM PDT Station ID: [id number]
[2020-02-21 13:25] LABS: ALBUMIN/GLOBULIN RATIO 1.3 (1.0-2.2); BILIRUBIN,TOTAL 1.3 mg/dL (0.2-1.0); CALCIUM 9.5 mg/dL (8.5-10.3); CREATININE 1.4 mg/dL (0.6-1.2); TOTAL PROTEIN 7.2 g/dL (6.7-8.2)
[2020-02-21 13:36] LABS: HB2 TOTAL 16.1 g/dL; HEMOGLOBIN A1C 0.89 g/dL; HEMOGLOBIN A1C % 7.2 % (4.6-6.2)
[2020-02-21 13:40] LABS: BASOPHILS # (AUTO) 0.1 10^3/uL (0.0-0.1); BASOPHILS % (AUTO) 0.5 %; EOSINOPHILS # (AUTO) 0.3 10^3/uL (0.0-0.7); EOSINOPHILS % (AUTO) 3.2 %; HGB - HEMOGLOBIN 15.8 g/dL (14.0-18.0); LYMPHOCYTES % (AUTO) 20.4 %; MEAN CORPUSCULAR HEMOGLOBIN 32.2 pg (27.0-31.0); MEAN CORPUSCULAR HGB CONC 33.3 g/dL (32.0-36.0); MEAN CORPUSCULAR VOLUME 96.7 fL (80.0-94.0); MEAN PLATELET VOLUME 9.5 fL (7.4-11.4); MONOCYTES # (AUTO) 0.8 10^3/uL (0.0-1.0); MONOCYTES % (AUTO) 8.4 %; NEUTROPHILS # (AUTO) 6.6 10^3/uL (1.5-6.6); NEUTROPHILS % (AUTO) 66.9 %; PLT - PLATELET COUNT 220 10^3/uL (130-450); RED BLOOD COUNT 4.91 10^6/uL (4.70-6.10); WHITE BLOOD COUNT 9.9 x10^3/uL (4.8-10.8)
== END 2020-02-21 11:01 | disposition home or self-care (01) ==
LOC: DI 11:00
PROVIDERS: ATTEND Nurse Practitioner
DX: I73.9 Peripheral vascular disease, unspecified (principal); M71.21 Synovial cyst of popliteal space [Baker], right knee; K21.9 Gastro-esophageal reflux disease without esophagitis; I10 Essential (primary) hypertension; E11.9 Type 2 diabetes mellitus without complications; N39.0 Urinary tract infection, site not specified; N40.1 Benign prostatic hyperplasia with lower urinary tract symptoms; M10.00 Idiopathic gout, unspecified site; R06.02 Shortness of breath
CPT/HCPCS: 36415; 80053; 83036; 83880; 85025; 93925

== ENCOUNTER 2020-02-21 12:07 | Outpatient (CLI) | payer MEDICARE, OTHER ==
[2020-02-21 11:53] LABS: BILIRUBIN,URINE NEGATIVE (NEGATIVE); GLUCOSE, URINE (UA) NEGATIVE (NEGATIVE); KETONES,URINE (UA) NEGATIVE (NEGATIVE); LEUKOCYTE ESTERASE, URINE SMALL (NEGATIVE); NITRITE,URINE NEGATIVE (NEGATIVE); OCCULT BLOOD,URINE TRACE-INTA (NEGATIVE); PH,URINE 6.5 PH (5.0-7.5); PROTEIN,URINE NEGATIVE (NEGATIVE); UROBILINOGEN,URINE 0.2 (NORMAL) E.U./dL (NORMAL)
[2020-02-21 11:57] LABS: CLARITY,URINE HAZY (CLEAR)
--- NOTE | 2020-02-21 12:09 | XRAY Report ---
PROCEDURE: Chest 2 View X-Ray INDICATIONS: SHORTNESS OF BREATH TECHNIQUE: 2 view(s) of the chest. COMPARISON: None. FINDINGS: Surgical changes and devices: Prior two-view chest 01/23/2019 reviewed.. Lungs and pleura: No pleural effusions or pneumothorax. Lungs are clear except for a mild degree of interstitial prominence over each lower lung, chronic in appearance.. Mediastinum: Mediastinal contours are normal. Heart size is normal. Bones and chest wall: No suspicious bony abnormalities. Soft tissues appear unremarkable. IMPRESSION: Mild stable appearing interstitial prominence over the lower lung parenchyma, this may r eflect a prior smoking history. No definite pneumonia found. Reviewed by: Rey Louise MD on 02/21/2020 12:08 PM PDT Approved by: Rey Louise MD on 02/21/2020 12:08 PM PDT Station ID: [id number]
[2020-02-21 12:26] LABS: CREATININE,URINE 63.4 mg/dL; MICROALBUM/CREATININE RATIO,UR 42.6 ug/mg (<30.0); MICROALBUMIN,URINE 2.7 mg/dL (0-300.0)
[2020-02-21 13:04] LABS: RBC,URINE 0-5 /HPF (0-5); SQUAMOUS EPITHELIAL CELL,UR NONE SEEN (<= Few)
[2020-02-21 13:05] LABS: BACTERIA,URINE Rare /HPF (None Seen)
== END 2020-02-21 23:59 | disposition home or self-care (01) ==
LOC: DI.WCP 12:07
PROVIDERS: ATTEND Nurse Practitioner
DX: R91.8 Other nonspecific abnormal finding of lung field (principal); K21.9 Gastro-esophageal reflux disease without esophagitis; I10 Essential (primary) hypertension; E11.9 Type 2 diabetes mellitus without complications; N39.0 Urinary tract infection, site not specified; N40.1 Benign prostatic hyperplasia with lower urinary tract symptoms; M10.00 Idiopathic gout, unspecified site
CPT/HCPCS: 71046; 81001; 82043; 82570; 87077; 87086; 87181

== ENCOUNTER 2020-05-01 08:00 | Outpatient (CLI) | payer MEDICARE, OTHER ==
[2020-05-01 18:15] LABS: BASOPHILS # (AUTO) 0.1 10^3/uL (0.0-0.1); BASOPHILS % (AUTO) 0.6 %; EOSINOPHILS # (AUTO) 0.3 10^3/uL (0.0-0.7); EOSINOPHILS % (AUTO) 2.8 %; HGB - HEMOGLOBIN 15.2 g/dL (14.0-18.0); LYMPHOCYTES # (AUTO) 2.5 10^3/uL (1.5-3.5); LYMPHOCYTES % (AUTO) 27.1 %; MEAN CORPUSCULAR HEMOGLOBIN 30.8 pg (27.0-31.0); MEAN CORPUSCULAR HGB CONC 32.3 g/dL (32.0-36.0); MEAN CORPUSCULAR VOLUME 95.3 fL (80.0-94.0); MEAN PLATELET VOLUME 9.8 fL (7.4-11.4); MONOCYTES # (AUTO) 0.7 10^3/uL (0.0-1.0); MONOCYTES % (AUTO) 7.9 %; NEUTROPHILS # (AUTO) 5.5 10^3/uL (1.5-6.6); NEUTROPHILS % (AUTO) 61.2 %; PLT - PLATELET COUNT 233 10^3/uL (130-450); RED BLOOD COUNT 4.94 10^6/uL (4.70-6.10); RED CELL DISTRIBUTION WIDTH 13.3 % (12.0-15.0)
[2020-05-01 18:28] LABS: ALBUMIN 3.8 g/dL (3.2-5.5); ALBUMIN/GLOBULIN RATIO 1.2 (1.0-2.2); BILIRUBIN,TOTAL 0.9 mg/dL (0.2-1.0); CALCIUM 9.2 mg/dL (8.5-10.3); CREATININE 1.4 mg/dL (0.6-1.2)
== END 2020-05-01 08:01 | disposition home or self-care (01) ==
LOC: LAB.WCP 08:00
PROVIDERS: ATTEND Nurse Practitioner
DX: E11.9 Type 2 diabetes mellitus without complications (principal); I73.9 Peripheral vascular disease, unspecified; E78.5 Hyperlipidemia, unspecified; I50.9 Heart failure, unspecified; R06.02 Shortness of breath
CPT/HCPCS: 36415; 80053; 85025

== ENCOUNTER 2020-05-03 12:56 | Outpatient (CLI) | payer MEDICARE, OTHER ==
--- NOTE | 2020-05-03 15:30 | MRI Report ---
PROCEDURE: Lumbar Spine W/O INDICATIONS: CLAUDICATION, SCIATICA TECHNIQUE: Noncontrast sagittal T1 spin echo and T2 fast echo, sagittal STIR, axial T1 and T2 fast spin echo thr ough the lumbar spine. In cases with scoliosis, additional coronal T2 fast spin echo may be performe d. COMPARISON: Plain films of the lumbar spine dated 05.06.18. FINDINGS: Image quality: Excellent. Alignment and Curvature: 5 lumbar type vertebral bodies are present by plain film. There is mild, gra de 1 retrolisthesis of L3 on L4. Bone Marrow: Marrow is of normal overall signal. No acute vertebral body compression fractures. Mi ld reactive signal within the endplates adjacent to the T12-L1, L1-L2, L2-L3, L3-L4, L4-L5, and L5-S1 intervertebral discs. Spinal Cord: Conus medullaris terminates at the mid L1 level. Visualized cord demonstrates normal s ignal and size. Paraspinous Soft Tissues: No paravertebral masses. T12-L1: Moderate disc height loss and desiccation. No significant canal, nor foraminal stenosis. L1-L2: Moderate disc desiccation. Mild diffuse disc bulge. Mild bilateral facet and ligament flavu m hypertrophy. No significant canal stenosis. No foraminal stenosis. L2-L3: Moderate disc height loss and desiccation. Mild diffuse disc bulge with superimposed broad- based left posterolateral protrusion. Mild facet and ligament flavum hypertrophy. Mild canal stenosis . Moderate left and mild right subarticular foraminal stenosis. L3-L4: Moderate disc height loss and desiccation. Mild diffuse disc bulge. Moderate facet and ligam ent flavum hypertrophy. Mild canal stenosis. Moderate left and severe right foraminal stenosis. Right L3 nerve root compression. L4-L5: Moderate disc desiccation. Mild diffuse disc bulge with superimposed right paracentral protr usion. Moderate facet and ligament flavum hypertrophy. Severe canal stenosis. Moderate subarticular f oraminal stenosis bilaterally. L5-S1: Moderate disc desiccation. Mild diffuse disc bulge. Mild bilateral facet hypertrophy. Mild c anal stenosis. Moderate subarticular foraminal stenosis bilaterally. IMPRESSION: 1. Multilevel degenerative disc and facet disease, in addition to epidural lipomatosis and ligamentum flavum hypertrophy. 2. Multilevel canal stenoses, worst at L4-L5, where there is severe canal stenosis. 3. Multilevel foraminal stenoses, worst at L3-L4 on the right, where there is associated L3 nerve tila t compression. Recommend correlation with clinical symptoms to ascertain relevance of this finding. Reviewed by: Sharon Pereira MD on 05/03/2020 3:29 PM PDT Approved by: Sharon Pereira MD on 05/03/2020 3:29 PM PDT Station ID: [id number]
== END 2020-05-03 12:57 | disposition home or self-care (01) ==
LOC: DI 12:56
PROVIDERS: ATTEND Nurse Practitioner
DX: M51.16 Intervertebral disc disorders with radiculopathy, lumbar region (principal); M48.062 Spinal stenosis, lumbar region with neurogenic claudication; I73.9 Peripheral vascular disease, unspecified
CPT/HCPCS: 72148

== ENCOUNTER 2020-07-22 08:00 | Outpatient (CLI) | payer MEDICARE, OTHER ==
[2020-07-22 22:04] LABS: BILIRUBIN,URINE NEGATIVE (NEGATIVE); GLUCOSE, URINE (UA) 100 mg/dL (NEGATIVE); KETONES,URINE (UA) NEGATIVE (NEGATIVE); LEUKOCYTE ESTERASE, URINE MODERATE (NEGATIVE); NITRITE,URINE NEGATIVE (NEGATIVE); OCCULT BLOOD,URINE SMALL (NEGATIVE); PROTEIN,URINE NEGATIVE (NEGATIVE); UROBILINOGEN,URINE 0.2 (NORMAL) E.U./dL (NORMAL)
[2020-07-22 22:06] LABS: CLARITY,URINE CLEAR (CLEAR)
[2020-07-22 22:11] LABS: BACTERIA,URINE Moderate /HPF (None Seen); RBC,URINE 0-5 /HPF (0-5); SQUAMOUS EPITHELIAL CELL,UR FEW Squamous (<= Few)
== END 2020-07-22 23:59 | disposition home or self-care (01) ==
LOC: LAB.R 08:00
PROVIDERS: ATTEND Nurse Practitioner
DX: N30.90 Cystitis, unspecified without hematuria (principal)
CPT/HCPCS: 81001; 87077; 87086; 87181

== ENCOUNTER 2020-09-28 07:00 | Outpatient (CLI) | payer MEDICARE, OTHER | END 2020-09-28 23:59 | disposition home or self-care (01) | LOC: LAB.R 07:00 | PROVIDERS: ATTEND Family Medicine | DX: R10.30 Lower abdominal pain, unspecified (principal) | CPT/HCPCS: 87077; 87086; 87181 ==

== ENCOUNTER 2020-10-01 14:52 | Outpatient (CLI) | payer MEDICARE, OTHER ==
--- NOTE | 2020-10-02 17:14 | Ultrasound Report ---
PROCEDURE: Duplex Lwr Ext Arterial Bilat INDICATIONS: PAIN OF RIGHT LOWER EXTREMITY TECHNIQUE: Color and pulse Doppler interrogation was performed of both lower extremity arterial systems, with im age documentation. COMPARISON: 02/21/2020 FINDINGS: Right lower extremity: Common femoral artery: 112 cm/sec, with biphasic flow. Deep femoral artery: 58 cm/sec, with biphasic flow. Proximal superficial femoral artery: 103 cm/sec, with biphasic flow. Mid superficial femoral artery: 147 cm/sec, with biphasic flow. Distal superficial femoral artery: 66 cm/sec, with biphasic/monophasic flow. Popliteal artery: 70 cm/sec, with biphasic flow. Posterior tibial artery: 87 cm/sec, with biphasic flow. Anterior tibial artery/dorsalis pedis: 84/74 cm/sec, with biphasic flow. Syed-scale imaging description: Scattered calcific plaque. Less than 50% mid SFA stenosis. There is a Mccollum's cyst in the right popliteal fossa measuring 4.3 x 7 x 3.6 cm. Left lower extremity: Common femoral artery: 90 cm/sec, with biphasic flow. Deep femoral artery: 58 cm/sec, with monophasic flow. Proximal superficial femoral artery: 80 cm/sec, with biphasic flow. Mid superficial femoral artery: 112 cm/sec, with biphasic flow. Distal superficial femoral artery: 69 cm/sec, with biphasic flow. Popliteal artery: 74 cm/sec, with biphasic flow. Posterior tibial artery: 74 cm/sec, with biphasic flow. Anterior tibial artery/dorsalis pedis: 96/101 cm/sec, with biphasic flow. Syed-scale imaging description: Mild scattered plaque without stenosis. IMPRESSION: 1. There is a prominent Mccollum's cyst in the right popliteal fossa corresponding to pain symptomatolog y. 2. No evidence of inflow stenotic disease. 3. Right lower extremity arterial ultrasound findings are not significantly changed. There is diffuse plaque. There is a less than 50% SFA stenosis. There is at least two-vessel runoff. 4. Left lower extremity arterial ultrasound findings are also not significantly changed. Diffuse plaq ue without significant stenosis. At least two-vessel runoff. Reviewed by: Aries Aparicio MD on 10/02/2020 5:13 PM PDT Approved by: Aries Aparicio MD on 10/02/2020 5:13 PM PDT Station ID: [id number]
== END 2020-10-01 14:53 | disposition home or self-care (01) ==
LOC: DI 14:52
PROVIDERS: ATTEND Internal Medicine Cardiovascular Disease
DX: M71.21 Synovial cyst of popliteal space [Baker], right knee (principal); I70.202 Unspecified atherosclerosis of native arteries of extremities, left leg; I70.201 Unspecified atherosclerosis of native arteries of extremities, right leg
CPT/HCPCS: 93925

== ENCOUNTER 2020-10-15 11:48 | Outpatient (CLI) | payer MEDICARE, OTHER ==
[2020-10-15 18:22] LABS: BILIRUBIN,URINE NEGATIVE (NEGATIVE); GLUCOSE, URINE (UA) 100 mg/dL (NEGATIVE); KETONES,URINE (UA) NEGATIVE (NEGATIVE); LEUKOCYTE ESTERASE, URINE SMALL (NEGATIVE); NITRITE,URINE NEGATIVE (NEGATIVE); OCCULT BLOOD,URINE LARGE (NEGATIVE); PROTEIN,URINE 100 mg/dL (NEGATIVE); UROBILINOGEN,URINE 0.2 (NORMAL) E.U./dL (NORMAL)
[2020-10-15 18:24] LABS: CLARITY,URINE HAZY (CLEAR)
[2020-10-15 18:34] LABS: BACTERIA,URINE Many /HPF (None Seen); SQUAMOUS EPITHELIAL CELL,UR RARE Squamous (<= Few); WBC,URINE >25 /HPF (0-3)
== END 2020-10-15 23:59 | disposition home or self-care (01) ==
LOC: LAB.R 11:48
PROVIDERS: ATTEND Nurse Practitioner
DX: R30.0 Dysuria (principal)
CPT/HCPCS: 81001; 87086

== ENCOUNTER 2021-01-08 08:00 | Outpatient (CLI) | payer MEDICARE, OTHER ==
[2021-01-08 12:17] LABS: BASOPHILS # (AUTO) 0.1 10^3/uL (0.0-0.1); BASOPHILS % (AUTO) 0.6 %; EOSINOPHILS # (AUTO) 0.3 10^3/uL (0.0-0.7); EOSINOPHILS % (AUTO) 3.9 %; HCT - HEMATOCRIT 45.6 % (42.0-52.0); LYMPHOCYTES # (AUTO) 2.3 10^3/uL (1.5-3.5); LYMPHOCYTES % (AUTO) 28.3 %; MEAN CORPUSCULAR HGB CONC 32.9 g/dL (32.0-36.0); MEAN CORPUSCULAR VOLUME 94.2 fL (80.0-94.0); MEAN PLATELET VOLUME 9.9 fL (7.4-11.4); MONOCYTES # (AUTO) 0.6 10^3/uL (0.0-1.0); MONOCYTES % (AUTO) 7.9 %; NEUTROPHILS # (AUTO) 4.7 10^3/uL (1.5-6.6); NEUTROPHILS % (AUTO) 58.8 %; PLT - PLATELET COUNT 234 10^3/uL (130-450); RED BLOOD COUNT 4.84 10^6/uL (4.70-6.10); RED CELL DISTRIBUTION WIDTH 13.5 % (12.0-15.0)
[2021-01-08 12:27] LABS: ESTIMATED AVERAGE GLUCOSE 177 mg/dL (70-100); HEMOGLOBIN A1c% 7.8 % (4.27-6.07)
[2021-01-08 12:33] LABS: BILIRUBIN,URINE NEGATIVE (NEGATIVE); GLUCOSE, URINE (UA) NEGATIVE (NEGATIVE); KETONES,URINE (UA) NEGATIVE (NEGATIVE); LEUKOCYTE ESTERASE, URINE SMALL (NEGATIVE); NITRITE,URINE NEGATIVE (NEGATIVE); OCCULT BLOOD,URINE SMALL (NEGATIVE); PROTEIN,URINE NEGATIVE (NEGATIVE); UROBILINOGEN,URINE 0.2 (NORMAL) E.U./dL (NORMAL)
[2021-01-08 12:40] LABS: THYROID STIMULATING HORMONE 2.61 uIU/mL (0.34-5.60)
[2021-01-08 12:41] LABS: ALBUMIN 4.1 g/dL (3.2-5.5); ALBUMIN/GLOBULIN RATIO 1.3 (1.0-2.2); ALKALINE PHOSPHATASE 77 IU/L (42-121); ALT ALANINE AMINOTRANSFERASE 15 IU/L (10-60); AST ASPARTATE AMINOTRANSFERASE 16 IU/L (10-42); BILIRUBIN,TOTAL 1.3 mg/dL (0.2-1.0); BUN - BLOOD UREA NITROGEN 31 mg/dL (6-20); CALCIUM 9.5 mg/dL (8.5-10.3); CARBON DIOXIDE - CO2 28 mmol/L (21-32); CHLORIDE 99 mmol/L (101-111); CHOL/HDL RATIO 2.6 (<5.0); CHOLESTEROL 110 mg/dL; CREATININE 1.3 mg/dL (0.6-1.2); GFR - MDRD 52 (>89); GLUCOSE 214 mg/dL (70-100); HDL CHOLESTEROL 43 mg/dL; LDL CHOLESTEROL,CALCULATED 46 mg/dL; LDL/HDL RATIO 1.1 (<3.6); POTASSIUM 4.5 mmol/L (3.5-5.0); SODIUM 137 mmol/L (135-145); TOTAL PROTEIN 7.2 g/dL (6.7-8.2); TRIGLYCERIDES 105 mg/dL; VLDL CHOLESTEROL 21 mg/dL
[2021-01-08 12:58] LABS: BACTERIA,URINE Rare /HPF (None Seen); CLARITY,URINE CLEAR (CLEAR); RBC,URINE 0-5 /HPF (0-5); SQUAMOUS EPITHELIAL CELL,UR FEW Squamous (<= Few)
[2021-01-08 13:11] LABS: CREATININE,URINE 180.4 mg/dL; MICROALBUM/CREATININE RATIO,UR 26.1 ug/mg (<30.0); MICROALBUMIN,URINE 4.7 mg/dL (0-300.0)
== END 2021-01-08 23:59 | disposition home or self-care (01) ==
LOC: LAB.WCP 08:00
PROVIDERS: ATTEND Internal Medicine
DX: E11.9 Type 2 diabetes mellitus without complications (principal); N30.90 Cystitis, unspecified without hematuria; N40.1 Benign prostatic hyperplasia with lower urinary tract symptoms; E03.9 Hypothyroidism, unspecified; N13.8 Other obstructive and reflux uropathy
CPT/HCPCS: 36415; 80053; 80061; 81001; 82043; 82570; 83036; 83721; 84153; 84443; 85025; 87086

== ENCOUNTER 2021-07-10 12:31 | Outpatient (CLI) | payer MEDICARE, OTHER ==
--- NOTE | 2021-07-10 15:46 | XRAY Report ---
PROCEDURE: Foot 2 View RT INDICATIONS: RIGHT GREAT TOE PAIN TECHNIQUE: 2 views of the foot were acquired. COMPARISON: None FINDINGS: Bones: No fractures or dislocations. No suspicious bony lesions. Scattered multidigit IP degenerat roseanna narrowing consistent with arthritic change. Soft tissues: No tibiotalar joint effusion. Achilles tendon appears normal. IMPRESSION: No visualized acute fracture or dislocation. However, occult injury cannot be excluded. Recommend lisa rt interval imaging follow-up in 7-10 days as clinically indicated for additional evaluation. Reviewed by: Shabnam Dorsey MD on 07/10/2021 3:45 PM PST Approved by: Shabnam Dorsey MD on 07/10/2021 3:45 PM [facility] Station ID: [id number]
== END 2021-07-10 12:32 | disposition home or self-care (01) ==
LOC: DI.N 12:31
PROVIDERS: ATTEND Internal Medicine
DX: M79.674 Pain in right toe(s) (principal)

== ENCOUNTER 2021-11-25 08:09 | Outpatient (CLI) | payer MEDICARE, OTHER ==
[2021-11-25 12:24] LABS: ALBUMIN 3.8 g/dL (3.2-5.5); ALBUMIN/GLOBULIN RATIO 1.2 (1.0-2.2); ALKALINE PHOSPHATASE 74 IU/L (42-121); ALT ALANINE AMINOTRANSFERASE 17 IU/L (10-60); AST ASPARTATE AMINOTRANSFERASE 19 IU/L (10-42); BILIRUBIN,TOTAL 1.3 mg/dL (0.2-1.0); BUN - BLOOD UREA NITROGEN 27 mg/dL (6-20); CALCIUM 9.1 mg/dL (8.5-10.3); CARBON DIOXIDE - CO2 25 mmol/L (21-32); CHLORIDE 106 mmol/L (101-111); CHOL/HDL RATIO 2.4 (<5.0); CHOLESTEROL 102 mg/dL; CREATININE 1.2 mg/dL (0.6-1.2); GFR - MDRD 57 (>89); GLUCOSE 143 mg/dL (70-100); HDL CHOLESTEROL 42 mg/dL; LDL CHOLESTEROL,CALCULATED 40 mg/dL; POTASSIUM 4.4 mmol/L (3.5-5.0); SODIUM 139 mmol/L (135-145); TOTAL PROTEIN 7.1 g/dL (6.7-8.2); TRIGLYCERIDES 101 mg/dL; URIC ACID 6.1 mg/dL (2.6-7.2); VLDL CHOLESTEROL 20 mg/dL
[2021-11-25 12:27] LABS: THYROID STIMULATING HORMONE 2.25 uIU/mL (0.34-5.60)
[2021-11-25 14:49] LABS: ESTIMATED AVERAGE GLUCOSE 151 mg/dL (70-100); HEMOGLOBIN A1c% 6.9 % (4.27-6.07)
[2021-11-25 18:31] LABS: CREATININE,URINE 118.3 mg/dL; MICROALBUM/CREATININE RATIO,UR 47.3 ug/mg (<30.0); MICROALBUMIN,URINE 5.6 mg/dL (0-300.0)
== END 2021-11-25 08:10 | disposition home or self-care (01) ==
LOC: LAB.N 08:09
PROVIDERS: ATTEND Internal Medicine
DX: I10 Essential (primary) hypertension (principal); E78.5 Hyperlipidemia, unspecified; E11.9 Type 2 diabetes mellitus without complications; E03.9 Hypothyroidism, unspecified; M10.00 Idiopathic gout, unspecified site
CPT/HCPCS: 36415; 80053; 80061; 82043; 82570; 83036; 83721; 84443; 84550

== ENCOUNTER 2022-03-16 15:39 | Outpatient (CLI) | payer MEDICARE, OTHER ==
[2022-03-16 18:05] LABS: BILIRUBIN,URINE NEGATIVE (NEGATIVE); GLUCOSE, URINE (UA) NEGATIVE (NEGATIVE); KETONES,URINE (UA) NEGATIVE (NEGATIVE); LEUKOCYTE ESTERASE, URINE NEGATIVE (NEGATIVE); NITRITE,URINE NEGATIVE (NEGATIVE); OCCULT BLOOD,URINE SMALL (NEGATIVE); PROTEIN,URINE NEGATIVE (NEGATIVE); UROBILINOGEN,URINE 0.2 (NORMAL) E.U./dL (NORMAL)
[2022-03-16 18:06] LABS: CLARITY,URINE CLEAR (CLEAR)
[2022-03-16 18:28] LABS: BACTERIA,URINE Rare /HPF (None Seen); SQUAMOUS EPITHELIAL CELL,UR FEW Squamous (<= Few); WBC,URINE 0-3 /HPF (0-3)
== END 2022-03-16 15:40 | disposition home or self-care (01) ==
LOC: LAB.N 15:39
PROVIDERS: ATTEND Internal Medicine
DX: N30.90 Cystitis, unspecified without hematuria (principal)
CPT/HCPCS: 81001; 87086

== ENCOUNTER 2022-10-22 15:39 | Outpatient (CLI) | payer MEDICARE, OTHER ==
[2022-10-22 17:49] LABS: BASOPHILS # (AUTO) 0.1 10^3/uL (0.0-0.1); BASOPHILS % (AUTO) 0.6 %; EOSINOPHILS # (AUTO) 0.5 10^3/uL (0.0-0.7); EOSINOPHILS % (AUTO) 5.6 %; HCT - HEMATOCRIT 45.8 % (42.0-52.0); HGB - HEMOGLOBIN 14.8 g/dL (14.0-18.0); LYMPHOCYTES # (AUTO) 2.3 10^3/uL (1.5-3.5); LYMPHOCYTES % (AUTO) 27.1 %; MEAN CORPUSCULAR HEMOGLOBIN 30.4 pg (27.0-31.0); MEAN CORPUSCULAR HGB CONC 32.3 g/dL (32.0-36.0); MEAN PLATELET VOLUME 9.8 fL (7.4-11.4); MONOCYTES # (AUTO) 0.8 10^3/uL (0.0-1.0); MONOCYTES % (AUTO) 8.9 %; NEUTROPHILS # (AUTO) 4.9 10^3/uL (1.5-6.6); NEUTROPHILS % (AUTO) 57.4 %; PLT - PLATELET COUNT 224 10^3/uL (130-450); RED BLOOD COUNT 4.87 10^6/uL (4.70-6.10); RED CELL DISTRIBUTION WIDTH 13.6 % (12.0-15.0); WHITE BLOOD COUNT 8.5 x10^3/uL (4.8-10.8)
[2022-10-22 18:02] LABS: CREATININE,URINE 103.3 mg/dL; MICROALBUM/CREATININE RATIO,UR 52.3 ug/mg (<30.0); MICROALBUMIN,URINE 5.4 mg/dL (0-300.0)
[2022-10-22 18:04] LABS: ALBUMIN 3.8 g/dL (3.2-5.5); ALBUMIN/GLOBULIN RATIO 1.1 (1.0-2.2); ALKALINE PHOSPHATASE 83 IU/L (42-121); ALT ALANINE AMINOTRANSFERASE 15 IU/L (10-60); AST ASPARTATE AMINOTRANSFERASE 14 IU/L (10-42); BILIRUBIN,TOTAL 1.2 mg/dL (0.2-1.0); BUN - BLOOD UREA NITROGEN 30 mg/dL (6-20); CALCIUM 8.9 mg/dL (8.5-10.3); CARBON DIOXIDE - CO2 28 mmol/L (21-32); CHLORIDE 105 mmol/L (101-111); CHOL/HDL RATIO 2.9 (<5.0); CHOLESTEROL 104 mg/dL; CREATININE 1.2 mg/dL (0.6-1.2); GFR - MDRD 57 (>89); GLUCOSE 169 mg/dL (70-100); HDL CHOLESTEROL 36 mg/dL; LDL CHOLESTEROL,CALCULATED 43 mg/dL; LDL/HDL RATIO 1.2 (<3.6); POTASSIUM 4.7 mmol/L (3.5-5.0); SODIUM 137 mmol/L (135-145); TOTAL PROTEIN 7.2 g/dL (6.7-8.2); TRIGLYCERIDES 127 mg/dL; VLDL CHOLESTEROL 25 mg/dL
[2022-10-22 18:15] LABS: THYROID STIMULATING HORMONE 2.1 uIU/mL (0.34-5.60)
[2022-10-22 20:22] LABS: ESTIMATED AVERAGE GLUCOSE 151 mg/dL (70-100); HEMOGLOBIN A1c% 6.9 % (4.27-6.07)
== END 2022-10-22 15:40 | disposition home or self-care (01) ==
LOC: LAB.N 15:39
PROVIDERS: ATTEND Internal Medicine
DX: E11.9 Type 2 diabetes mellitus without complications (principal); E03.9 Hypothyroidism, unspecified; J84.112 Idiopathic pulmonary fibrosis
CPT/HCPCS: 36415; 80053; 80061; 82043; 82570; 83036; 83721; 84443; 85025

== ENCOUNTER 2022-11-02 01:43 | Outpatient (CLI) | payer MEDICARE, OTHER | END 2022-11-02 01:44 | disposition critical access hospital (66) | LOC: EMS 01:43 | DX: R07.9 Chest pain, unspecified (principal) | CPT/HCPCS: A0425; A0429 ==

== ENCOUNTER 2022-11-02 02:04 | Emergency (ER) | payer MEDICARE, OTHER ==
[2022-11-02 02:59] LABS: BASOPHILS # (AUTO) 0.1 10^3/uL (0.0-0.1); BASOPHILS % (AUTO) 0.7 %; EOSINOPHILS # (AUTO) 0.5 10^3/uL (0.0-0.7); EOSINOPHILS % (AUTO) 5.9 %; HCT - HEMATOCRIT 41.4 % (42.0-52.0); HGB - HEMOGLOBIN 13.5 g/dL (14.0-18.0); LYMPHOCYTES # (AUTO) 2.1 10^3/uL (1.5-3.5); MEAN CORPUSCULAR HEMOGLOBIN 30.3 pg (27.0-31.0); MEAN CORPUSCULAR HGB CONC 32.6 g/dL (32.0-36.0); MEAN PLATELET VOLUME 9.2 fL (7.4-11.4); MONOCYTES # (AUTO) 0.7 10^3/uL (0.0-1.0); MONOCYTES % (AUTO) 9.4 %; NEUTROPHILS # (AUTO) 4.3 10^3/uL (1.5-6.6); NEUTROPHILS % (AUTO) 56.7 %; PLT - PLATELET COUNT 202 10^3/uL (130-450); RED BLOOD COUNT 4.45 10^6/uL (4.70-6.10); RED CELL DISTRIBUTION WIDTH 13.5 % (12.0-15.0); WHITE BLOOD COUNT 7.6 x10^3/uL (4.8-10.8)
[2022-11-02 03:11] LABS: ALBUMIN 3.4 g/dL (3.2-5.5); ALBUMIN/GLOBULIN RATIO 1.1 (1.0-2.2); BILIRUBIN,TOTAL 1.3 mg/dL (0.2-1.0); CALCIUM 8.7 mg/dL (8.5-10.3); CREATININE 1.2 mg/dL (0.6-1.2); POTASSIUM 3.9 mmol/L (3.5-5.0); TOTAL PROTEIN 6.6 g/dL (6.7-8.2)
[2022-11-02 05:55] VITALS: BP 173/80
--- NOTE | 2022-11-02 05:59 | ED Physician Documentation ---
History of Present Illness - Stated complaint Stated Complaint: CP WITH EXERTION - Chief complaint Chief Complaint: Cardiac - Additonal information Additional information: Patient 87-year-old male presenting to the emergency department with chief complaints of heart palpitations and "dry tongue". He reports that he has had dry tongue and mouth for the last several days. States he has been drinking a great deal of fluid without relief. Reports that he has had intermittent episodes of a "pounding" feeling in his chest that is made worse with physical exertion. Denies edward pain or shortness of breath. Past medical significant for interstitial lung disease, Review of Systems Constitutional: denies: Fever Eyes: denies: Loss of vision Ears: denies: Loss of hearing Nose: denies: Rhinorrhea / runny nose Throat: reports: Other (Dry mouth) Cardiac: reports: Palpitations. denies: Chest pain / pressure, Pedal edema, Calf pain Respiratory: denies: Dyspnea, Cough, Hemoptysis GI: denies: Abdominal Pain, Nausea, Vomiting : denies: Dysuria PD PAST MEDICAL HISTORY - Past Medical History Cardiovascular: Hypertension, High cholesterol, Coronary artery disease, Pulmonary embolism, Angina, Arrhythmia Respiratory: Asthma Neuro: Migraines Endocrine/Autoimmune: Type 2 diabetes, HyPOthyroidism GI: GERD, Hiatal hernia, Diverticulitis, Other : Benign prostate hypertrophy, Incontinence, Renal insuffiency, Frequency, Other HEENT: Chronic hearing loss Musculoskeletal: Osteoarthritis Derm: Other - Past Surgical History Past Surgical History: Yes General: Hiatal hernia repair Ortho: Other Cardiovascular: Cardiac catheterization Derm: Skin cancer surgery - Present Medications Home Medications: Ambulatory Orders Medication Instructions Recorded Confirmed Furosemide 20 mg PO MOWEFR 03/13/13 08/06/21 Gabapentin [Neurontin] 300 mg PO TID 03/13/13 08/06/21 Levothyroxine [Synthroid] 25 mcg PO DAILY 03/13/13 08/06/21 Metoprolol Succinate [Toprol Xl] 25 mg PO DAILY 03/13/13 08/06/21 Omeprazole [Prilosec] 20 mg PO BIDWM 03/13/13 08/06/21 Potassium Chloride [Micro-K] 10 meq PO MOWEFR 03/13/13 08/06/21 Apixaban [Eliquis] 5 mg PO BID 07/04/16 08/06/21 Docusate Sodium [Colace Clear] 50 mg PO BID 03/24/19 08/06/21 Insulin Regular Human [NovoLIN R] 5 - 7 unit SUBQ TIDWM 03/24/19 08/06/21 polyethylene glycoL 3350 [Miralax] 17 gm PO DAILY 03/24/19 08/06/21 Insulin Glargine,Hum.rec.anlog 10 unit SUBQ QPM 02/07/21 08/06/21 [Basaglar Kwikpen U-100] Rosuvastatin Calcium [Crestor] 2.5 mg PO QPM 02/07/21 08/06/21 Acetaminophen [Tylenol Arthritis] 650 mg PO TID PRN 08/06/21 08/06/21 Losartan [Cozaar] 50 mg PO BID 08/06/21 08/06/21 Tamsulosin [Flomax] 0.4 mg PO DAILY 08/06/21 08/06/21 Trospium Chloride 20 mg PO QPM 08/06/21 08/06/21 rOPINIRole [Requip] 0.25 mg PO BID 08/06/21 08/06/21 - Allergies Allergies/Adverse Reactions: Allergies Allergy/AdvReac Type Severity Reaction Status Date / Time Iodinated Contrast Media Allergy Hives Verified 08/31/19 11:24 caffeine AdvReac Unknown Verified 04/06/19 12:25 - Social History Does the pt smoke?: No Smoking Status: Never smoker Does the pt drink ETOH?: No Does the pt have substance abuse?: No - Immunizations Immunizations are current?: Yes - POLST Patient has POLST: No POLST Status: DNR (POA states he wants DNR but refuses to sign POLST) PD ED PE NORMAL - Vitals Vital signs reviewed: Yes (Patient hypertensive but otherwise vitals within normal limits) - General General: Alert and oriented X 3 - HEENT HEENT: Atraumatic - Neck Neck: Supple, no meningeal sign - Cardiac Cardiac: RRR - Respiratory Respiratory: No respiratory distress - Abdomen Abdomen: Normal bowel sounds - Male Male : Deferred - Rectal Rectal: Deferred - Back Back: No CVA TTP - Derm Derm: Normal color - Extremities Extremities: No deformity Results - Vitals Vitals: Vital Signs - 24 hr 11/02/22 11/02/22 11/02/22 02:05 05:46 05:55 Temperature 36.6 C Heart Rate 79 60 Heart Rate [ 71 Sitting] Heart Rate [ 76 Standing] Heart Rate [ 60 Supine] Respiratory 16 11 L Rate Blood Pressure 161/111 H 189/79 H Blood Pressure 183/92 H [Sitting] Blood Pressure 146/80 H [Standing] Blood Pressure 173/80 H [Supine] O2 Saturation 96 97 Oxygen O2 Source [With Activity] Room air O2 Source Room air - EKG (time done) 0214 EKG releavant findings:: EKG personally interpreted by author of this note. Relevant findings are: Sinus rhythm with rate 67 bpm. Normal axis. Normal SD, QRS, QTc intervals. No ST segment elevations or T wave inversions. No significant change in comparison to previous April 06, 2019. - Labs Labs: Laboratory Tests 11/02/22 11/02/22 11/02/22 02:51 02:51 02:51 WBC 7.6 RBC 4.45 L Hgb 13.5 L Hct 41.4 L MCV 93.0 MCH 30.3 MCHC 32.6 RDW 13.5 Plt Count 202 MPV 9.2 Neut # (Auto) 4.3 Lymph # (Auto) 2.1 [place] # (Auto) 0.7 Eos # (Auto) 0.5 Baso # (Auto) 0.1 Absolute Nucleated RBC 0.00 Nucleated RBC % 0.0 Sodium 139 Potassium 3.9 Chloride 106 Carbon Dioxide 27 Anion Gap 6.0 BUN 31 H Creatinine 1.2 Estimated GFR (MDRD) 57 L Glucose 116 H Calcium 8.7 Total Bilirubin 1.3 H AST 15 ALT 13 Alkaline Phosphatase 73 Troponin I High Sens 9.6 Total Protein 6.6 L Albumin 3.4 Globulin 3.2 Albumin/Globulin Ratio 1.1 Lipase 24 11/02/22 05:06 WBC RBC Hgb Hct MCV MCH MCHC RDW Plt Count MPV Neut # (Auto) Lymph # (Auto) [place] # (Auto) Eos # (Auto) Baso # (Auto) Absolute Nucleated RBC Nucleated RBC % Sodium Potassium Chloride Carbon Dioxide Anion Gap BUN Creatinine Estimated GFR (MDRD) Glucose Calcium Total Bilirubin AST ALT Alkaline Phosphatase Troponin I High Sens 10.9 Total Protein Albumin Globulin Albumin/Globulin Ratio Lipase PD Medical Decision Making - ED course Complexity details: reviewed results, re-evaluated patient, d/w patient ED course: Patient 87-year-old male presenting to the emergency department with chief complaint of chest pain. Patient hard of hearing and communication was assisted with an audio amplification device provided by the patient. He reported intermittent episodes of a pounding pulse over the course of the last few days. Reported that this happened with standing and with physical exertion. During my history he denied specific episodes of chest pain. He also reported that he has been feeling dehydrated with a dry mouth and tongue for the last few days and has had episodes of dizziness with standing. EKG as outlined above was negative for indications of acute cardiac ischemia or dysrhythmia. This was unchanged from previous. He had serial high-sensitivity troponins that were negative. His labs demonstratedA creatinine of 1.2 as well as an elevated BUN of 31 possibly representing dehydration. He was given some IV hydration in the emergency department. Orthostatic vital signs were obtained which did have a minimal drop in systolic blood pressure from sitting from standing but no symptomatic issues. Patient was able to tolerate p.o. fluids in the emergency department. His chest x-ray demonstrated findings consistent with his known history of interstitial pulmonary fibrosis. He did not demonstrate respiratory distress or respiratory failure while in the emergency department. Nothing in his clinical presentation is of imminent concern for pulmonary emboli. At this time I will discharge with encouragement to drink plenty of fluids over the course the next few days and follow-up with his primary care doctor as well as with his financial adviser and tire trucker. Clear return precautions given prior to discharge. Departure - Departure Disposition: 01 Home, Self Care Clinical Impression: Palpitations, Dehydration Comments: Thank you for allowing us to care for you today at [facility]. Today in the emergency department you were evaluated for any possible life- threatening medical emergency. The testing performed in the emergency department today was overall very reassuring. You did have some signs of dehydration and I am glad that you are able to tolerate fluids here in the emergency department. Please continue to drink plenty of fluids over the course of the next few days. I did not identify any injury to the muscle of your heart however I do want you to follow-up carefully with your primary care doctor as well as with your tire trucker/financial adviser. If it anytime you have new or worsening symptoms its important that you return to the emergency department for reevaluation. Discharge Date/Time: 11/02/22 07:21
--- NOTE | 2022-11-02 08:20 | XRAY Report ---
PROCEDURE: Chest 1 View X-Ray INDICATIONS: chest pain TECHNIQUE: One view of the chest was acquired. COMPARISON: Chest x-ray 01/06/2022. FINDINGS: Surgical changes and devices: None. Lungs and pleura: No pleural effusions or pneumothorax. Chronic interstitial changes are present Mediastinum: Mediastinal contours appear normal. Heart size is enlarged. Bones and chest wall: No suspicious bony lesions. Overlying soft tissues appear unremarkable. IMPRESSION: Chronic interstitial changes without definitive superimposed new consolidation. The above findings are concordant with preliminary report. Reviewed by: Shabnam Dorsey MD on 11/02/2022 8:19 AM PDT Approved by: Shabnam Dorsey MD on 11/02/2022 8:19 AM PDT Station ID: [id number]
== END 2022-11-02 07:21 | disposition home or self-care (01) ==
LOC: EDUNIT# → ED 02:04
DX: E86.0 Dehydration (principal); R00.2 Palpitations; Z66 Do not resuscitate
CPT/HCPCS: 36415; 80053; 83690; 84484; 85025; 93005; 99283; 99284

== ENCOUNTER 2023-03-09 13:56 | Outpatient (CLI) | payer MEDICARE, OTHER | END 2023-03-09 23:59 | disposition EMS.NT | LOC: EMS 13:56 | DX: Z03.89 Encounter for observation for other suspected diseases and conditions ruled out (principal) ==

== ENCOUNTER 2023-04-13 18:17 | Outpatient (CLI) | payer MEDICARE, OTHER ==
--- NOTE | 2023-04-14 15:37 | Ultrasound Report ---
PROCEDURE: Duplex Lwr Ext Arterial Bilat INDICATIONS: CLAUDICATION TECHNIQUE: Color and pulse Doppler interrogation was performed of both lower extremity arterial systems, with im age documentation. COMPARISON: 02/21/2020 FINDINGS: Right lower extremity: Common femoral artery: 9.4 cm/sec, with biphasic flow. Deep femoral artery: 34.7 cm/sec, with monophasic flow. Proximal superficial femoral artery: 86.0 cm/sec, with biphasic flow. Mid superficial femoral artery: 91.4 cm/sec, with biphasic flow. Distal superficial femoral artery: 96.4 cm/sec, with biphasic flow. Popliteal artery: 73 cm/sec, with biphasic/triphasic flow. Posterior tibial artery: 90.1 cm/sec, with triphasic flow. Anterior tibial artery/dorsalis pedis: 115.5/79.3 cm/sec, with monophasic/biphasic flow. 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 Mild diffuse plaque. Left lower extremity: Common femoral artery: 82 cm/sec, with biphasic flow. Deep femoral artery: 49 cm/sec, with biphasic flow. Proximal superficial femoral artery: 118.8 cm/sec, with biphasic flow. Mid superficial femoral artery: 106.5 cm/sec, with biphasic flow. Distal superficial femoral artery: 102.5 cm/sec, with biphasic flow. Popliteal artery: 56.4 cm/sec, with biphasic flow. Posterior tibial artery: 1 a 1.5 cm/sec, with biphasic flow. Anterior tibial artery/dorsalis pedis: 89.5/75.3 cm/sec, with biphasic/triphasic flow. Syed-scale imaging description: Mccollum's cyst measuring 2.9 x 0.8 x 2.1 cm. Mild diffuse plaque. IMPRESSION: Mild diffuse plaque with no significant stenosis by imaging or velocity/waveform criteria . Reviewed by: Saw Smith on 04/14/2023 3:36 PM PDT Approved by: Saw Smith on 04/14/2023 3:36 PM PDT Station ID: [id number]
== END 2023-04-13 18:18 | disposition home or self-care (01) ==
LOC: DI 18:17
PROVIDERS: ATTEND Internal Medicine
DX: I73.9 Peripheral vascular disease, unspecified (principal)
CPT/HCPCS: 93925

== ENCOUNTER 2023-04-26 08:00 | Outpatient (CLI) | payer MEDICARE, OTHER ==
[2023-04-26 18:17] LABS: BILIRUBIN,URINE NEGATIVE (NEGATIVE); GLUCOSE, URINE (UA) 250 mg/dL (NEGATIVE); KETONES,URINE (UA) NEGATIVE (NEGATIVE); LEUKOCYTE ESTERASE, URINE NEGATIVE (NEGATIVE); NITRITE,URINE NEGATIVE (NEGATIVE); OCCULT BLOOD,URINE NEGATIVE (NEGATIVE); PROTEIN,URINE NEGATIVE (NEGATIVE); UROBILINOGEN,URINE 0.2 (NORMAL) E.U./dL (NORMAL)
[2023-04-26 18:43] LABS: CLARITY,URINE CLEAR (CLEAR); RBC,URINE 0-5 /HPF (0-5); SQUAMOUS EPITHELIAL CELL,UR FEW Squamous (<= Few); WBC,URINE 0-3 /HPF (0-3)
[2023-04-26 18:44] LABS: BACTERIA,URINE None Seen /HPF (None Seen)
== END 2023-04-26 23:59 | disposition home or self-care (01) ==
LOC: LAB.N 08:00
PROVIDERS: ATTEND Internal Medicine
DX: N39.0 Urinary tract infection, site not specified (principal)
CPT/HCPCS: 81001; 87086

== ENCOUNTER 2023-06-03 08:00 | Outpatient (CLI) | payer MEDICARE, OTHER ==
[2023-06-03 20:52] LABS: BILIRUBIN,URINE NEGATIVE (NEGATIVE); GLUCOSE, URINE (UA) NEGATIVE (NEGATIVE); KETONES,URINE (UA) NEGATIVE (NEGATIVE); LEUKOCYTE ESTERASE, URINE NEGATIVE (NEGATIVE); NITRITE,URINE NEGATIVE (NEGATIVE); OCCULT BLOOD,URINE TRACE-INTA (NEGATIVE); PROTEIN,URINE 30 mg/dL (NEGATIVE); UROBILINOGEN,URINE 0.2 (NORMAL) E.U./dL (NORMAL)
[2023-06-03 20:59] LABS: CLARITY,URINE HAZY (CLEAR)
[2023-06-03 21:11] LABS: BACTERIA,URINE None Seen /HPF (None Seen); CASTS, URINE 3-5 Hyaline Casts /LPF; MUCUS,URINE Moderate Strands; RBC,URINE 0-5 /HPF (0-5); SQUAMOUS EPITHELIAL CELL,UR MOD Squamous (<= Few); WBC,URINE 0-3 /HPF (0-3)
== END 2023-06-03 23:59 | disposition home or self-care (01) ==
LOC: LAB.N 08:00
PROVIDERS: ATTEND Nurse Practitioner Family
DX: R30.0 Dysuria (principal)
CPT/HCPCS: 81001; 87086

== ENCOUNTER 2023-07-06 11:51 | Outpatient (CLI) | payer MEDICARE, OTHER | END 2023-07-06 23:59 | disposition critical access hospital (66) | LOC: EMS 11:51 | DX: M25.552 Pain in left hip (principal); M79.605 Pain in left leg; W18.39XA Other fall on same level, initial encounter; Y92.009 Unspecified place in unspecified non-institutional (private) residence as the place of occurrence of the external cause; R42 Dizziness and giddiness | CPT/HCPCS: A0425; A0429 ==

== ENCOUNTER 2023-07-06 12:21 | Inpatient (IN) | payer MEDICARE, OTHER ==
[2023-07-06] MEDS ORDERED: HYDROmorphone 1 MG/ML CARPUJECT IVP STA (12:33)
--- NOTE | 2023-07-06 12:35 | ED Physician Documentation ---
PD HPI LOWER EXT INJURY - Stated complaint Stated Complaint: GLF/L HIP PX - Chief complaint Chief Complaint: Trauma Ext - History obtained from History obtained from: Patient - History of Present Illness PD HPI LOW EXT INJURY LOCATION: Left, Hip Type of injury: Fall (The patient does have some balance disorder. He bent over to pick something up and as he stood back up, felt slightly lightheaded off balance and fell backwards with a twisting of his hip. Injury to the hip and did strike his head apparently. No headache. Unable to get back up due to hip pain.) Where injury occurred: Home Timing - onset: How many minutes ago (30), Today Timing - details: Abrupt onset, Still present (pain left hip with movement and has spasms.) Improved by: Rest Worsened by: Moving, Palpating Associated symptoms: No: Weakness, Numbness Contributing factors: Anticoagulated (History of atrial fibrillation and also prior blood clots and peripheral vascular disease. He is on Eliquis. He had not taken his morning medicines as yet.). No: Prior ortho surgery Similar symptoms before: Has not had sx before Review of Systems Constitutional: denies: Fever, Chills Ears: reports: Other (difficulty hearing) Nose: denies: Rhinorrhea / runny nose, Congestion Throat: denies: Sore throat Cardiac: denies: Chest pain / pressure Respiratory: denies: Cough GI: denies: Abdominal Pain, Vomiting : denies: Dysuria Skin: denies: Abrasion (s), Laceration (s) Neurologic: denies: Focal weakness, Numbness, Confused, Headache, LOC PD PAST MEDICAL HISTORY - Past Medical History Past Medical History: Yes Cardiovascular: Hypertension, High cholesterol, Coronary artery disease, Pulmonary embolism, Angina, Arrhythmia (has not taken AM doses of meds today as yet. ) Respiratory: Asthma Neuro: Migraines Endocrine/Autoimmune: Type 2 diabetes, HyPOthyroidism GI: GERD, Hiatal hernia, Diverticulitis, Other : Benign prostate hypertrophy, Incontinence, Renal insuffiency, Frequency, Other HEENT: Chronic hearing loss Psych: None Musculoskeletal: Osteoarthritis Derm: Other - Past Surgical History Past Surgical History: Yes General: Hiatal hernia repair Ortho: Other Cardiovascular: Cardiac catheterization Derm: Skin cancer surgery - Present Medications Home Medications: Ambulatory Orders Medication Instructions Recorded Confirmed Furosemide 20 mg PO MOWEFR 03/13/13 07/06/23 Gabapentin [Neurontin] 300 mg PO TID 03/13/13 07/06/23 Levothyroxine [Synthroid] 25 mcg PO DAILY 03/13/13 07/06/23 Metoprolol Succinate [Toprol Xl] 100 mg PO DAILY 03/13/13 07/06/23 Omeprazole [Prilosec] 20 mg PO BIDWM 03/13/13 07/06/23 Potassium Chloride [Micro-K] 10 meq PO MOWEFR 03/13/13 07/06/23 Apixaban [Eliquis] 5 mg PO BID 07/04/16 07/06/23 Insulin Regular Human [NovoLIN R] 5 - 7 unit SUBQ TIDWM 03/24/19 07/06/23 Insulin Glargine,Hum.rec.anlog 10 unit SUBQ QPM 02/07/21 07/06/23 [Basaglar Kwikpen U-100] Rosuvastatin Calcium [Crestor] 2.5 mg PO QPM 02/07/21 07/06/23 Losartan [Cozaar] 100 mg PO DAILY 08/06/21 07/06/23 Tamsulosin [Flomax] 0.4 mg PO DAILY 08/06/21 07/06/23 Trospium Chloride 20 mg PO QPM 08/06/21 07/06/23 Albuterol Sulf [Ventolin Hfa 1 - 2 puffs INH Q4HR PRN 07/06/23 07/06/23 Inhaler] Finasteride [Proscar] 5 mg PO DAILY 07/06/23 07/06/23 - Allergies Allergies/Adverse Reactions: Allergies Allergy/AdvReac Type Severity Reaction Status Date / Time Iodinated Contrast Media Allergy Hives Verified 07/06/23 12:26 caffeine AdvReac Unknown Verified 07/06/23 12:26 - Social History Does the pt smoke?: No Smoking Status: Never smoker Does the pt drink ETOH?: No Does the pt have substance abuse?: No - Immunizations Immunizations are current?: Yes - POLST Patient has POLST: No POLST Status: DNR (POA states he wants DNR but refuses to sign POLST) PD ED PE NORMAL - Vitals Vital signs reviewed: Yes - General General: Alert and oriented X 3, No acute distress, Well developed/nourished - HEENT HEENT: Atraumatic, Other (very hard of hearing. Uses his phone for voice dictation and reads it. Just need to be directed to look at his phone to read it. ) - Neck Neck: Supple, no meningeal sign, No adenopathy - Cardiac Cardiac: RRR, No murmur - Respiratory Respiratory: No respiratory distress, Clear bilaterally - Abdomen Abdomen: Soft, Non tender - Back Back: No spinal TTP - Derm Derm: Normal color, Warm and dry - Extremities Extremities: Other (left hip painful with any movmenet. Leg is shortened and ext rotated some. ) - Neuro Neuro: Alert and oriented X 3, No motor deficit, No sensory deficit, Normal speech Results - Vitals Vitals: Vital Signs - 24 hr 07/06/23 07/06/23 12:26 12:50 Temperature 36 C L Heart Rate 67 Respiratory 18 Rate Blood Pressure 160/139 H O2 Saturation 94 88 L Oxygen O2 Source [] Room air O2 Source Room air Oxygen Flow Rate 2 - EKG (time done) 12:52 EKG releavant findings:: EKG personally interpreted by author of this note. Relevant findings are: Rate: Rate (enter#) (64) Rhythm: NSR [place]: Normal Intervals: Normal LA QRS: Normal, LVH Ischemia: Normal ST segments. No: ST elevation c/w ischemia, ST depression - Labs Labs: Laboratory Tests 07/06/23 07/06/23 07/06/23 12:47 12:47 12:47 WBC 12.3 H RBC 4.88 Hgb 14.8 Hct 45.5 MCV 93.2 MCH 30.3 MCHC 32.5 RDW 14.1 Plt Count 192 MPV 9.0 Neut # (Auto) 8.8 H Lymph # (Auto) 2.2 [place] # (Auto) 0.9 Eos # (Auto) 0.3 Baso # (Auto) 0.1 Absolute Nucleated RBC 0.00 Nucleated RBC % 0.0 PT 16.6 H INR 1.5 H APTT 32.3 Sodium 136 Potassium 4.9 H Chloride 101 Carbon Dioxide 30 Anion Gap 5.0 L BUN 35 H Creatinine 1.4 H Estimated GFR (MDRD) 48 L Glucose 144 H Calcium 9.5 Magnesium 1.9 Total Bilirubin 1.2 H AST 15 ALT 12 Alkaline Phosphatase 78 B-Natriuretic Peptide Total Protein 7.2 Albumin 3.8 Globulin 3.4 Albumin/Globulin Ratio 1.1 Lipase < 10 L 07/06/23 12:47 WBC RBC Hgb Hct MCV MCH MCHC RDW Plt Count MPV Neut # (Auto) Lymph # (Auto) [place] # (Auto) Eos # (Auto) Baso # (Auto) Absolute Nucleated RBC Nucleated RBC % PT INR APTT Sodium Potassium Chloride Carbon Dioxide Anion Gap BUN Creatinine Estimated GFR (MDRD) Glucose Calcium Magnesium Total Bilirubin AST ALT Alkaline Phosphatase B-Natriuretic Peptide 79 Total Protein Albumin Globulin Albumin/Globulin Ratio Lipase - Rads (name of study) left hip Relevant Findings:: Prelim report reviewed, EMP independent interpretation of test (intertrochanteric fracture mildly displaced. ) chest xray Relevant Findings:: Prelim report reviewed, EMP independent interpretation of test (enlarged heart, congested vasculature) head CT Relevant Findings:: Prelim report reviewed, EMP independent interpretation of test (no ICH) PD Medical Decision Making - ED course Complexity details: considered differential, d/w patient, d/w senior management consultant (talked with Dr. [facility], who will see pt. Defers to Hospitalist due to comorbidities. ) Departure - Departure Disposition: 66 [facility] DC/Xfer Clinical Impression: Accidental fall, Intertrochanteric fracture of left femur, Anticoagulant long- term use Forms: PCP List
[2023-07-06 12:54] LABS: BASOPHILS # (AUTO) 0.1 10^3/uL (0.0-0.1); BASOPHILS % (AUTO) 0.4 %; EOSINOPHILS # (AUTO) 0.3 10^3/uL (0.0-0.7); EOSINOPHILS % (AUTO) 2.4 %; HCT - HEMATOCRIT 45.5 % (42.0-52.0); HGB - HEMOGLOBIN 14.8 g/dL (14.0-18.0); LYMPHOCYTES # (AUTO) 2.2 10^3/uL (1.5-3.5); LYMPHOCYTES % (AUTO) 17.6 %; MEAN CORPUSCULAR HEMOGLOBIN 30.3 pg (27.0-31.0); MEAN CORPUSCULAR HGB CONC 32.5 g/dL (32.0-36.0); MEAN CORPUSCULAR VOLUME 93.2 fL (80.0-94.0); MONOCYTES # (AUTO) 0.9 10^3/uL (0.0-1.0); MONOCYTES % (AUTO) 7.3 %; NEUTROPHILS # (AUTO) 8.8 10^3/uL (1.5-6.6); NEUTROPHILS % (AUTO) 71.6 %; PLT - PLATELET COUNT 192 10^3/uL (130-450); RED BLOOD COUNT 4.88 10^6/uL (4.70-6.10); RED CELL DISTRIBUTION WIDTH 14.1 % (12.0-15.0); WHITE BLOOD COUNT 12.3 x10^3/uL (4.8-10.8)
[2023-07-06 13:12] LABS: ALBUMIN 3.8 g/dL (3.2-5.5); ALBUMIN/GLOBULIN RATIO 1.1 (1.0-2.2); ALKALINE PHOSPHATASE 78 IU/L (42-121); ALT ALANINE AMINOTRANSFERASE 12 IU/L (10-60); AST ASPARTATE AMINOTRANSFERASE 15 IU/L (10-42); BILIRUBIN,TOTAL 1.2 mg/dL (0.2-1.0); BUN - BLOOD UREA NITROGEN 35 mg/dL (6-20); CALCIUM 9.5 mg/dL (8.5-10.3); CARBON DIOXIDE - CO2 30 mmol/L (21-32); CHLORIDE 101 mmol/L (101-111); CREATININE 1.4 mg/dL (0.6-1.3); GFR - MDRD 48 (>89); GLUCOSE 144 mg/dL (74-104); MAGNESIUM 1.9 mg/dL (1.7-2.3); POTASSIUM 4.9 mmol/L (3.5-4.5); SODIUM 136 mmol/L (135-145); TOTAL PROTEIN 7.2 g/dL (6.4-8.9)
[2023-07-06 13:16] LABS: LIPASE < 10 U/L (11-82)
[2023-07-06 13:23] LABS: PARTIAL THROMBOPLASTIN TIME 32.3 secs (24.9-33.3)
[2023-07-06] MEDS ORDERED: diazePAM INJ 5 MG/ML SYRINGE IVP STA (13:27)
[2023-07-06] MEDS ORDERED: KETOROLAC 15 MG/ML VIAL IVP STA (13:27)
[2023-07-06 13:30] LABS: INR 1.5 (0.8-1.2); PT - PROTHROMBIN TIME 16.6 secs (9.9-12.6)
--- NOTE | 2023-07-06 14:28 | XRAY Report ---
PROCEDURE: Chest 1V INDICATIONS: chest pain TECHNIQUE: One view of the chest was acquired. COMPARISON: Chest radiograph 11/02/2022. FINDINGS: Surgical changes and devices: None. Lungs and pleura: Low lung volumes with prominent interstitial markings, slightly increased since pr ior radiograph. Left lower lobe opacity. Probable small left pleural effusion. No pneumothorax. Mediastinum: Mediastinal contours appear normal. Heart size is normal. Aortic arch is calcified ind icating atherosclerosis. Bones and chest wall: No suspicious bony lesions. Overlying soft tissues appear unremarkable. Ric ateral glenohumeral joint degeneration. IMPRESSION: Left lower lobe consolidation concerning for pneumonia. Chronic interstitial markings appear slightly more pronounced since prior radiograph, possibly due to lung low volumes with increased bronchovascu lar crowding. Reviewed by: Nicolette Tyson MD on 07/06/2023 2:26 PM PST Approved by: Nicolette Tyson MD on 07/06/2023 2:26 PM PST Station ID: [id number]
[2023-07-06] MEDS ORDERED: SODIUM CHLORIDE FLUSH 0.9% 10 ML SYRINGE IVP PRN (14:30)
--- NOTE | 2023-07-06 15:26 | XRAY Report ---
PROCEDURE: Hip w/Pelvis 2-3V LT INDICATIONS: FALL TECHNIQUE: AP pelvis with lateral view(s) of the hip(s). COMPARISON: None. FINDINGS: Bones: Mildly displaced mildly comminuted trochanteric fracture of the left hip. No dislocations. No suspicious bony lesions. Soft tissues: No suspicious soft tissue calcifications or masses. IMPRESSION: Trochanteric fracture of the left hip. Reviewed by: Aries Aparicio MD on 07/06/2023 3:24 PM PST Approved by: Aries Aparicio MD on 07/06/2023 3:24 PM PST Station ID: [id number]
--- NOTE | 2023-07-06 15:26 | CT Report ---
PROCEDURE: Head WO INDICATIONS: fall, on DOAC. TECHNIQUE: Noncontrast 4.5 mm thick angled axial sections acquired from the foramen magnum to the vertex. For r adiation dose reduction, the following was used: automated exposure control, adjustment of mA and/or kV according to patient size. COMPARISON: None. FINDINGS: Image quality: Good CSF spaces: Basal cisterns are patent. Lateral ventricles are symmetric. Slight asymmetry of the occ ipital horns, likely chronic Volume: Vascular calcifications. Periventricular white matter disease is commonly seen with chronic m icroangiopathy. Volume loss is present. These findings are moderate Brain: No intracranial hemorrhage. Syed-white differentiation is grossly maintained. Craniofacial structures: No displaced fracture. Paranasal sinuses are clear. IMPRESSION: No acute intracranial abnormality. Reviewed by: Antoine Allen MD on 07/06/2023 3:25 PM PST Approved by: Antoine Allen MD on 07/06/2023 3:25 PM PST Station ID: [id number]
--- NOTE | 2023-07-06 15:28 | CT Report ---
PROCEDURE: Cervical Spine WO INDICATIONS: fall, some head/neck pain TECHNIQUE: Noncontrast 3 mm thick sections acquired from the skull base to the T4 level. Sagittal and coronal r eformats were then constructed. For radiation dose reduction, the following was used: automated exp osure control, adjustment of mA and/or kV according to patient size. COMPARISON: None. FINDINGS: Image quality: Diagnostic Bones: Overall moderate degenerative changes. Likely chronic trace retrolisthesis of C4 on C5. Verteb ral body heights are well-maintained. No traumatic subluxation identified Soft tissues: Prevertebral soft tissues within normal limits. There are vascular calcifications. No a ctionable thyroid nodule identified. No apical pneumothorax. Possible mild interstitial opacities and reticulation at the lung apices. IMPRESSION: No acute fracture or subluxation. Moderate spondylosis. If there is high concern for further derangem ent, consider MRI evaluation. Reviewed by: Antoine Allen MD on 07/06/2023 3:27 PM PST Approved by: Antoine Allen MD on 07/06/2023 3:27 PM PST Station ID: [id number]
--- NOTE | 2023-07-06 16:00 | CONSULTATION NOTE ---
History of Present Illness - History of Present Illness HPI Comment/Other: Mr. Shemar Sanders is a 87-year-old male who apparently had a fall today landing on his left side. He was unable to stand or weight-bear on this extremity. Was taken to the emergency room where x-rays showed his minimally displaced left intertrochanteric hip fracture left side up. Patient denied a loss of consciousness or other injuries. Currently is on chronic anticoagulation (DOAC's) for his chronic atrial fibrillation. Examination: Patient had tenderness on palpation over the trochanteric region of his left hip. Had painful range of motion of his hip. He holds the left leg slightly shortened and externally rotated. Moves his toes satisfactory. Neurovascular intact distally. X-rays: Shows a minimally displaced intertrochanteric hip fracture left side Assessment: Closed left intertrochanteric hip fracture #2 chronic atrial fibrillation #3 anticoagulation using Eliquis medication for #2 Plan: Will stop his Eliquis at this time. Would like to wait 24 to 36 hours after his last dose of Eliquis before proceeding with surgical intervention. Will plan doing a InterTAN nailing of his hip fracture tomorrow at 1 PM. N.p.o. after midnight. Type and hold for 2 units of packed cells. Preop antibiotics. Consent signed. History - Past Medical History Cardiovascular: reports: Hypertension, High cholesterol, Coronary artery disease, Pulmonary embolism, Angina, Arrhythmia (has not taken AM doses of meds today as yet. ) Respiratory: reports: Asthma Neuro: reports: Migraines Endocrine/Autoimmune: reports: Type 2 diabetes, HyPOthyroidism GI: reports: GERD, Hiatal hernia, Diverticulitis, Other : reports: Benign prostate hypertrophy, Incontinence, Renal insuffiency, Frequency, Other HEENT: reports: Chronic hearing loss Psych: reports: None Musculoskeletal: reports: Osteoarthritis Derm: reports: Other MRSA Hx?: No - Past Surgical History General: reports: Hiatal hernia repair Ortho: reports: Other Cardiovascular: reports: Cardiac catheterization Derm: reports: Skin cancer surgery - Family & Social History Family History Comment/Other: Mother age 86 of CVA. FAther age 83 of cardiac. 1 brother age 17 of MVA. No sisters. 3 children: all healthy but none talk to him except daughter. Disowned son and sister refuses to have anything to do w him. Social History Notes: Never a smoker and occasional drinker of beer. Falling in home since 2016 off and on. was in Rehab 2016 from stroke, 01/18/17. 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 Locked them out and arranged for Cintia 2 months ago from [facility], 5 days a week. Will increase to 7 days a week. Daughter Anay is POA. He is a . [employer]. - Substance History Use: Uses substance without health or social issues: NONE - POLST Patient has POLST: No POLST Status: DNR (POA states he wants DNR but refuses to sign POLST) Meds/Allgy - Home Medications Home Medications: Ambulatory Orders Medication Instructions Recorded Confirmed Furosemide 20 mg PO MOWEFR 03/13/13 07/06/23 Gabapentin [Neurontin] 300 mg PO TID 03/13/13 07/06/23 Levothyroxine [Synthroid] 25 mcg PO DAILY 03/13/13 07/06/23 Metoprolol Succinate [Toprol Xl] 100 mg PO DAILY 03/13/13 07/06/23 Omeprazole [Prilosec] 20 mg PO BIDWM 03/13/13 07/06/23 Potassium Chloride [Micro-K] 10 meq PO MOWEFR 03/13/13 07/06/23 Apixaban [Eliquis] 5 mg PO BID 07/04/16 07/06/23 Insulin Regular Human [NovoLIN R] 5 - 7 unit SUBQ TIDWM 03/24/19 07/06/23 Insulin Glargine,Hum.rec.anlog 10 unit SUBQ QPM 02/07/21 07/06/23 [Basaglar Kwikpen U-100] Rosuvastatin Calcium [Crestor] 2.5 mg PO QPM 02/07/21 07/06/23 Losartan [Cozaar] 100 mg PO DAILY 08/06/21 07/06/23 Tamsulosin [Flomax] 0.4 mg PO DAILY 08/06/21 07/06/23 Trospium Chloride 20 mg PO QPM 08/06/21 07/06/23 Albuterol Sulf [Ventolin Hfa 1 - 2 puffs INH Q4HR PRN 07/06/23 07/06/23 Inhaler] Finasteride [Proscar] 5 mg PO DAILY 07/06/23 07/06/23 - Allergies Allergies/Adverse Reactions: Allergies Allergy/AdvReac Type Severity Reaction Status Date / Time Iodinated Contrast Media Allergy Hives Verified 07/06/23 12:26 caffeine AdvReac Unknown Verified 07/06/23 12:26 Exam - Vital Signs Vital Signs: Vital Signs x48h Temp Pulse Resp BP Pulse Ox 07/06/23 14:59 64 16 114/71 96 07/06/23 12:50 88 L 07/06/23 12:26 36 C L 67 18 160/139 H 94 Conclusion/Plan - Lab Results Fish Bones: 07/06/23 12:47 07/06/23 12:47
--- NOTE | 2023-07-06 19:55 | HISTORY & PHYSICAL EXAMINATION ---
Chief Complaint - Chief Complaint Chief Complaint: Left hip pain History of Present Illness - Admitted From Admitted From:: Emergency Room - History Obtained From Records Reviewed: Yes History obtained from: Patient and Providers - History of Present Illness HPI Comment/Other: Shemar Sanders is a 87-year-old man who presented to the emergency room on July 06, 2022 with complaints of left hip pain. Patient had a fall today and after the fall was unable to stand or weight-bear on his left extremity. He was taken to the emergency room and x-ray of the lower extremity revealed a displaced left intertrochanteric hip fracture. Patient is on chronic anticoagulation with Eliquis for atrial fibrillation. He has no other complaints at this time. History - Past Medical History Cardiovascular: reports: Hypertension, High cholesterol, Coronary artery disease, Pulmonary embolism, Angina, Arrhythmia Respiratory: reports: Asthma, Sleep apnea Neuro: reports: Migraines Endocrine/Autoimmune: reports: Type 2 diabetes, HyPOthyroidism GI: reports: GERD, Hiatal hernia, Colon polyps, Diverticulitis, Other : reports: Benign prostate hypertrophy, Incontinence, Renal insuffiency, Frequency, Kidney stones, Other HEENT: reports: Chronic hearing loss Psych: reports: Depression, Bipolar disorder Musculoskeletal: reports: Osteoarthritis Derm: reports: Other MRSA Hx?: No - Past Surgical History General: reports: Bowel surgery, Gastric surgery, Hiatal hernia repair Ortho: reports: Other Cardiovascular: reports: Cardiac catheterization HEENT: reports: Cataracts Derm: reports: Skin cancer surgery - Family & Social History Family History Comment/Other: Mother age 86 of CVA. FAther age 83 of cardiac. 1 brother age 17 of MVA. No sisters. 3 children: all healthy but none talk to him except daughter. Disowned son and sister refu ses to have anything to do w him. Social History Notes: Never a smoker and occasional drinker of beer. Falling in home since 2016 off and on. was in Rehab 2016 from stroke, 01/18/17. 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 Locked them out and arranged for Cintia 2 months ago from [id number] 5 days a week. Will increase to 7 days a week. Daughter Anay is POA. He is a . [employer]. - Substance History Use: Uses substance without health or social issues: NONE - POLST Patient has POLST: No POLST Status: DNR (POA states he wants DNR but refuses to sign POLST) Meds/Allgy - Home Medications Home Medications: Ambulatory Orders Medication Instructions Recorded Confirmed Furosemide 20 mg PO MOWEFR 03/13/13 07/06/23 Gabapentin [Neurontin] 300 mg PO TID 03/13/13 07/06/23 Levothyroxine [Synthroid] 25 mcg PO DAILY 03/13/13 07/06/23 Metoprolol Succinate [Toprol Xl] 100 mg PO DAILY 03/13/13 07/06/23 Omeprazole [Prilosec] 20 mg PO BIDWM 03/13/13 07/06/23 Potassium Chloride [Micro-K] 10 meq PO MOWEFR 03/13/13 07/06/23 Apixaban [Eliquis] 5 mg PO BID 07/04/16 07/06/23 Insulin Regular Human [NovoLIN R] 5 - 7 unit SUBQ TIDWM 03/24/19 07/06/23 Insulin Glargine,Hum.rec.anlog 10 unit SUBQ QPM 02/07/21 07/06/23 [Basaglar Kwikpen U-100] Rosuvastatin Calcium [Crestor] 2.5 mg PO QPM 02/07/21 07/06/23 Losartan [Cozaar] 100 mg PO DAILY 08/06/21 07/06/23 Tamsulosin [Flomax] 0.4 mg PO DAILY 08/06/21 07/06/23 Trospium Chloride 20 mg PO QPM 08/06/21 07/06/23 Albuterol Sulf [Ventolin Hfa 1 - 2 puffs INH Q4HR PRN 07/06/23 07/06/23 Inhaler] Finasteride [Proscar] 5 mg PO DAILY 07/06/23 07/06/23 - Allergies Allergies/Adverse Reactions: Allergies Allergy/AdvReac Type Severity Reaction Status Date / Time Iodinated Contrast Media Allergy Hives Verified 07/06/23 12:26 caffeine AdvReac Unknown Verified 07/06/23 12:26 Review of Systems - Constitutional Constitutional: reports: Weakness - Ears, Nose & Throat Ears, Nose & Throat: reports: Hearing loss - Musculoskeletal Musculoskeletal: reports: Limited range of motion - All Other Systems All Other Systems: reports: Reviewed and negative Exam - Vital Signs Vital Signs: Vital Signs x48h Temp Pulse Pulse Resp BP BP Pulse Ox 07/06/23 19:26 07/06/23 17:11 81 183/98 H 92 07/06/23 16:35 36.6 C 72 20 174/78 H 88 L 07/06/23 14:59 64 16 114/71 96 07/06/23 12:50 88 L 07/06/23 12:26 36 C L 67 18 160/139 H 94 O2 Flow Rate 07/06/23 19:26 2 07/06/23 17:11 2 07/06/23 16:35 07/06/23 14:59 07/06/23 12:50 07/06/23 12:26 - Physical Exam General Appearance: positive: No acute distress, Alert Eyes Bilateral: positive: PERRL, EOMI, Conjunctivae nml, No scleral icterus ENT: positive: Pharynx nml Neck: positive: Nml inspection, Thyroid nml, No JVD, Swelling/bruising Respiratory: positive: Chest non-tender, No respiratory distress, Breath sounds nml, Other (No wheezing, No crackles.) Cardiovascular: positive: Regular rate & rhythm, No murmur (+S1, S2. No extra heart sounds.) Conclusion/Plan - Problem List (1) Intertrochanteric fracture of left femur Conclusion/Plan: Hold Apixaban Orthopedic Consult Loraine as needed for pain control - Lab Results Fish Bones: 07/06/23 12:47 07/06/23 12:47
[2023-07-06] MEDS: SODIUM CHLORIDE FLUSH 0.9% 10 ML SYRINGE IVP SCH (20:18)
[2023-07-06] MEDS: LOSARTAN 50 MG TABLET PO SCH (20:23)
[2023-07-07] MEDS: HYDROcod/ACETAM 5/325 MG TABLET PO PRN ×2 (00:03→09:09)
[2023-07-07] MEDS: SODIUM CHLORIDE FLUSH 0.9% 10 ML SYRINGE IVP SCH ×5 (09:25→16:28)
[2023-07-07] MEDS: LOSARTAN 50 MG TABLET PO SCH (10:19)
--- NOTE | 2023-07-07 11:57 | PHARMACY PROGRESS NOTE ---
- Best Possible Medication History Admit Date and Time: 07/06/23 1431 Processed by: Pharmacy Medication History completed: Yes Patient Interview: Completed Secondary Source(s): Written medication list, Pharmacy records, Insurance records As the person ultimately responsible for medication therapy, providers are able to order a medication from an existing home medication list in [facility] via the "Reconcile Routine" prior to Confirmation of that medication by rn support services. Such practice is discouraged except when the physician, in their clinical judgment, deems that a medical need exists for a medication without regard to previous use.
[2023-07-07] MEDS ORDERED: ceFAZolin (2G) 2 GM in SODIUM CHLORIDE 0.9% MINIBAG 100 ML IV SCH (12:00)
[2023-07-07] MEDS ORDERED: ceFAZolin 1 GM VIAL IVP SCH (12:05)
--- NOTE | 2023-07-07 12:29 | PROVIDER PROGRESS NOTE ---
Assessment/Plan - Current Meds Current Meds: Current Medications Generic Name Dose Route Start Last Admin Trade Name Mey PRN Reason Stop Dose Admin Hydrocodone Bitart/Acetaminophen 1 tab 07/06/23 19:45 07/07/23 09:09 Hydrocod/Acetam 5/325 Mg Tablet PO 1 tab Q4HR PRN Administration Moderate Pain (Level 4-6) Cefazolin Sodium 2 gm/ Sodium 100 mls @ 200 mls/hr 07/07/23 12:00 07/07/23 11:53 Chloride IV 07/07/23 16:00 200 mls/hr ONCE JOMAR Administration Losartan Potassium 50 mg 07/06/23 21:00 07/07/23 10:19 Losartan 50 Mg Tablet PO 50 mg DAILY JOMAR Administration Sodium Chloride 10 ml 07/06/23 17:00 07/07/23 10:20 Sodium Chloride Flush 0.9% 10 Ml Syringe IVP 10 ml 0100,0900,1700 JOMAR Administration - Lab Result Fish Bone Diagrams: 07/06/23 12:47 07/06/23 12:47 - Additional Planning My Orders: My Active Orders 07/07/23 12:00 ceFAZolin (2G) [Ancef] 2 gm Sodium Chloride 0.9% Minibag [Normal Saline 0.9% Minibag] 100 ml IV ONCE 07/07/23 13:00 OR C-Arm Procedure [FL] Routine Objective Vital Signs: Vital Signs - 24 hr 07/06/23 07/06/23 07/06/23 12:50 14:59 16:35 Temperature 36.6 C Heart Rate 64 Heart Rate [ 72 Brachial] Respiratory 16 20 Rate Blood Pressure 114/71 Blood Pressure 174/78 H [Right Brachial artery] O2 Saturation 88 L 96 88 L If not protocol : Oxygen Flow, liters/minute 07/06/23 07/06/23 07/06/23 17:11 19:26 20:10 Temperature 36.8 C Heart Rate Heart Rate [ 81 75 Brachial] Respiratory 20 Rate Blood Pressure Blood Pressure 183/98 H 153/79 H [Right Brachial artery] O2 Saturation 92 95 If not protocol 2 2 2 : Oxygen Flow, liters/minute 07/06/23 07/07/23 23:56 08:00 Temperature 36.9 C 36.8 C Heart Rate Heart Rate [ 70 68 Brachial] Respiratory 18 18 Rate Blood Pressure Blood Pressure 183/91 H 166/81 H [Right Brachial artery] O2 Saturation 95 94 If not protocol 2 : Oxygen Flow, liters/minute Oxygen O2 Source [With Activity] Room air O2 Source Room air Oxygen Flow Rate 2 I&O (Last 24 Hrs): Intake and Output Totals x24h 07/05/23 07/06/23 07/07/23 23:59 23:59 23:59 Intake Total 270 Output Total 175 125 Balance 95 -125 - Results Results: Laboratory Results WBC 12.3 x10^3/uL (4.8-10.8) H 07/06/23 12:47 RBC 4.88 10^6/uL (4.70-6.10) 07/06/23 12:47 Hgb 14.8 g/dL (14.0-18.0) 07/06/23 12:47 Hct 45.5 % (42.0-52.0) 07/06/23 12:47 MCV 93.2 fL (80.0-94.0) 07/06/23 12:47 MCH 30.3 pg (27.0-31.0) 07/06/23 12:47 MCHC 32.5 g/dL (32.0-36.0) 07/06/23 12:47 RDW 14.1 % (12.0-15.0) 07/06/23 12:47 Plt Count 192 10^3/uL (130-450) 07/06/23 12:47 MPV 9.0 fL (7.4-11.4) 07/06/23 12:47 Neut # (Auto) 8.8 10^3/uL (1.5-6.6) H 07/06/23 12:47 Lymph # (Auto) 2.2 10^3/uL (1.5-3.5) 07/06/23 12:47 [place] # (Auto) 0.9 10^3/uL (0.0-1.0) 07/06/23 12:47 Eos # (Auto) 0.3 10^3/uL (0.0-0.7) 07/06/23 12:47 Baso # (Auto) 0.1 10^3/uL (0.0-0.1) 07/06/23 12:47 Absolute Nucleated RBC 0.00 x10^3/uL 07/06/23 12:47 Nucleated RBC % 0.0 /100WBC 07/06/23 12:47 PT 16.6 secs (9.9-12.6) H 07/06/23 12:47 INR 1.5 (0.8-1.2) H 07/06/23 12:47 APTT 32.3 secs (24.9-33.3) 07/06/23 12:47 Sodium 136 mmol/L (135-145) 07/06/23 12:47 Potassium 4.9 mmol/L (3.5-4.5) H 07/06/23 12:47 Chloride 101 mmol/L (101-111) 07/06/23 12:47 Carbon Dioxide 30 mmol/L (21-32) 07/06/23 12:47 Anion Gap 5.0 (6-13) L 07/06/23 12:47 BUN 35 mg/dL (6-20) H 07/06/23 12:47 Creatinine 1.4 mg/dL (0.6-1.3) H 07/06/23 12:47 Estimated GFR (MDRD) 48 (>89) L 07/06/23 12:47 Glucose 144 mg/dL (74-104) H 07/06/23 12:47 Calcium 9.5 mg/dL (8.5-10.3) 07/06/23 12:47 Magnesium 1.9 mg/dL (1.7-2.3) 07/06/23 12:47 Total Bilirubin 1.2 mg/dL (0.2-1.0) H 07/06/23 12:47 AST 15 IU/L (10-42) 07/06/23 12:47 ALT 12 IU/L (10-60) 07/06/23 12:47 Alkaline Phosphatase 78 IU/L (42-121) 07/06/23 12:47 B-Natriuretic Peptide 79 pg/mL (5-100) 07/06/23 12:47 Total Protein 7.2 g/dL (6.4-8.9) 07/06/23 12:47 Albumin 3.8 g/dL (3.2-5.5) 07/06/23 12:47 Globulin 3.4 g/dL (2.1-4.2) 07/06/23 12:47 Albumin/Globulin Ratio 1.1 (1.0-2.2) 07/06/23 12:47 Lipase < 10 U/L (11-82) L 07/06/23 12:47 Blood Type O POSITIVE 07/06/23 16:14 Blood Type Recheck O POSITIVE 07/06/23 16:17 Antibody Screen NEGATIVE 07/06/23 16:14 - Procedures Procedures: Procedures ARTHROPLASTY OF MCP & INTERPHALANG JT W/O IMPLANT (03/19/15) REPOSITION RIGHT HUMERAL SHAFT WITH INT FIX, OPEN APPROACH (10/03/18) ABX Reporting Has patient been on IV antibiotics over the past 48 hours?: No
--- NOTE | 2023-07-07 12:30 | PROVIDER PROGRESS NOTE ---
Subjective - Prog Note Date Prog Note Date: 07/07/23 Prog Note Time: 12:29 - Subjective Subjective: No changes in examination Questions answered. Wishes to proceed with surgery as planned. Objective - Vital Signs/Intake & Output Vital Signs: Vital Signs x48h Temp Pulse Resp BP Pulse Ox 07/07/23 08:00 36.8 C 68 18 166/81 H 94 Intake & Output: Intake & Output 07/04/23 07/05/23 07/06/23 07/07/23 23:59 23:59 23:59 23:59 Intake Total 270 Output Total 175 125 Balance 95 -125 - Lab Results Fish Bones: 07/06/23 12:47 07/06/23 12:47 Other Labs: Lab Results x24hrs 07/06/23 07/06/23 07/06/23 Range/Units 16:17 16:14 12:47 WBC (4.8-10.8) x10^3/uL RBC (4.70-6.10) 10^6/uL Hgb (14.0-18.0) g/dL Hct (42.0-52.0) % MCV (80.0-94.0) fL MCH (27.0-31.0) pg MCHC (32.0-36.0) g/dL RDW (12.0-15.0) % Plt Count (130-450) 10^3/uL MPV (7.4-11.4) fL Neut # (Auto) (1.5-6.6) 10^3/uL Lymph # (Auto) (1.5-3.5) 10^3/uL [place] # (Auto) (0.0-1.0) 10^3/uL Eos # (Auto) (0.0-0.7) 10^3/uL Baso # (Auto) (0.0-0.1) 10^3/uL Absolute Nucleated RBC x10^3/uL Nucleated RBC % /100WBC PT (9.9-12.6) secs INR (0.8-1.2) APTT (24.9-33.3) secs Sodium (135-145) mmol/L Potassium (3.5-4.5) mmol/L Chloride (101-111) mmol/L Carbon Dioxide (21-32) mmol/L Anion Gap (6-13) BUN (6-20) mg/dL Creatinine (0.6-1.3) mg/dL Estimated GFR (MDRD) (>89) Glucose (74-104) mg/dL Calcium (8.5-10.3) mg/dL Magnesium (1.7-2.3) mg/dL Total Bilirubin (0.2-1.0) mg/dL AST (10-42) IU/L ALT (10-60) IU/L Alkaline Phosphatase (42-121) IU/L B-Natriuretic Peptide 79 (5-100) pg/mL Total Protein (6.4-8.9) g/dL Albumin (3.2-5.5) g/dL Globulin (2.1-4.2) g/dL Albumin/Globulin Ratio (1.0-2.2) Lipase (11-82) U/L Blood Type O POSITIVE Blood Type Recheck O POSITIVE Antibody Screen NEGATIVE 07/06/23 07/06/23 07/06/23 Range/Units 12:47 12:47 12:47 WBC 12.3 H (4.8-10.8) x10^3/uL RBC 4.88 (4.70-6.10) 10^6/uL Hgb 14.8 (14.0-18.0) g/dL Hct 45.5 (42.0-52.0) % MCV 93.2 (80.0-94.0) fL MCH 30.3 (27.0-31.0) pg MCHC 32.5 (32.0-36.0) g/dL RDW 14.1 (12.0-15.0) % Plt Count 192 (130-450) 10^3/uL MPV 9.0 (7.4-11.4) fL Neut # (Auto) 8.8 H (1.5-6.6) 10^3/uL Lymph # (Auto) 2.2 (1.5-3.5) 10^3/uL [place] # (Auto) 0.9 (0.0-1.0) 10^3/uL Eos # (Auto) 0.3 (0.0-0.7) 10^3/uL Baso # (Auto) 0.1 (0.0-0.1) 10^3/uL Absolute Nucleated RBC 0.00 x10^3/uL Nucleated RBC % 0.0 /100WBC PT 16.6 H (9.9-12.6) secs INR 1.5 H (0.8-1.2) APTT 32.3 (24.9-33.3) secs Sodium 136 (135-145) mmol/L Potassium 4.9 H (3.5-4.5) mmol/L Chloride 101 (101-111) mmol/L Carbon Dioxide 30 (21-32) mmol/L Anion Gap 5.0 L (6-13) BUN 35 H (6-20) mg/dL Creatinine 1.4 H (0.6-1.3) mg/dL Estimated GFR (MDRD) 48 L (>89) Glucose 144 H (74-104) mg/dL Calcium 9.5 (8.5-10.3) mg/dL Magnesium 1.9 (1.7-2.3) mg/dL Total Bilirubin 1.2 H (0.2-1.0) mg/dL AST 15 (10-42) IU/L ALT 12 (10-60) IU/L Alkaline Phosphatase 78 (42-121) IU/L B-Natriuretic Peptide (5-100) pg/mL Total Protein 7.2 (6.4-8.9) g/dL Albumin 3.8 (3.2-5.5) g/dL Globulin 3.4 (2.1-4.2) g/dL Albumin/Globulin Ratio 1.1 (1.0-2.2) Lipase < 10 L (11-82) U/L Blood Type Blood Type Recheck Antibody Screen
[2023-07-07] MEDS ORDERED: NALOXONE 0.4 MG/ML VIAL IVP PRN (12:32)
[2023-07-07] MEDS ORDERED: ePHEDrine 50 MG/ML VIAL IVP PRN (12:32)
[2023-07-07] MEDS ORDERED: METOCLOPRAMIDE 10 MG/2 ML VIAL IVP PRN (12:32)
[2023-07-07] MEDS ORDERED: HYDROmorphone 0.5 MG/0.5 ML SYRINGE IVP PRN (12:32)
[2023-07-07] MEDS ORDERED: fentaNYL 100 MCG/2 ML VIAL IVP PRN (12:32)
[2023-07-07] MEDS ORDERED: ONDANSETRON 4 MG/2 ML VIAL IVP PRN (12:32)
[2023-07-07] MEDS ORDERED: MORPHINE 2 MG/ML CARPUJECT IVP PRN (12:32)
[2023-07-07] MEDS ORDERED: ATROPINE ABBOJECT 1 MG/10 ML SYRINGE IVP PRN (12:32)
--- NOTE | 2023-07-07 12:32 | ANESTHESIA ---
Pre-Anesthesia VS, & Labs - Diagnosis L HIP fx - Procedure L hip pinning Vital Signs: Temp Pulse Resp BP Pulse Ox O2 Flow Rate 36.8 C 68 18 166/81 H 94 2 07/07/23 08:00 07/07/23 08:00 07/07/23 08:00 07/07/23 08:00 07/07/23 08:00 07/06/23 23:56 Height: 5 ft 11 in Weight (kg): 82.5 kg Body Mass Index: 25.3 BMI Classification: Overweight - NPO >8 hours - Lab Results Current Lab Results: Laboratory Tests 07/06/23 16:17: Blood Type Recheck O POSITIVE 07/06/23 16:14: Blood Type O POSITIVE, Antibody Screen NEGATIVE 07/06/23 12:47: B-Natriuretic Peptide 79 07/06/23 12:47: Sodium 136, Potassium 4.9 H, Chloride 101, Carbon Dioxide 30, Anion Gap 5.0 L, BUN 35 H, Creatinine 1.4 H, Estimated GFR (MDRD) 48 L, Glucose 144 H, Calcium 9.5, Magnesium 1.9, Total Bilirubin 1.2 H, AST 15, ALT 12, Alkaline Phosphatase 78, Total Protein 7.2, Albumin 3.8, Globulin 3.4, Albumin/Globulin Ratio 1.1, Lipase < 10 L 07/06/23 12:47: PT 16.6 H, INR 1.5 H, APTT 32.3 07/06/23 12:47: WBC 12.3 H, RBC 4.88, Hgb 14.8, Hct 45.5, MCV 93.2, MCH 30.3, MCHC 32.5, RDW 14.1, Plt Count 192, MPV 9.0, Neut # (Auto) 8.8 H, Lymph # (Auto) 2.2, [place] # (Auto) 0.9, Eos # (Auto) 0.3, Baso # (Auto) 0.1, Absolute Nucleated RBC 0.00, Nucleated RBC % 0.0 Fish Bones: 07/06/23 12:47 07/06/23 12:47 Home Medications and Allergies Home Medications: Ambulatory Orders Albuterol Sulf [Ventolin Hfa Inhaler] 1 - 2 puffs INH Q4HR PRN 07/06/23 Finasteride [Proscar] 5 mg PO DAILY 07/06/23 Active Medications Hydrocodone Bitart/Acetaminophen (Hydrocod/Acetam 5/325 Mg Tablet) 1 tab PO Q4HR PRN PRN Reason: Moderate Pain (Level 4-6) Last Admin: 07/07/23 09:09 Dose: 1 tab Cefazolin Sodium 2 gm/ Sodium (Chloride) 100 mls @ 200 mls/hr IV ONCE [facility] Stop: 07/07/23 16:00 Last Admin: 07/07/23 11:53 Dose: 200 mls/hr Losartan Potassium (Losartan 50 Mg Tablet) 50 mg PO DAILY [facility] Last Admin: 07/07/23 10:19 Dose: 50 mg Sodium Chloride (Sodium Chloride Flush 0.9% 10 Ml Syringe) 10 ml IVP PRN PRN PRN Reason: NEEDED PER PROVIDER ORDERS Sodium Chloride (Sodium Chloride Flush 0.9% 10 Ml Syringe) 10 ml IVP 0100, 0900,1700 [facility] Last Admin: 07/07/23 10:20 Dose: 10 ml Furosemide 20 mg PO MOWEFR 03/13/13 Gabapentin [Neurontin] 300 mg PO TID 03/13/13 Levothyroxine [Synthroid] 25 mcg PO DAILY 03/13/13 Metoprolol Succinate [Toprol Xl] 100 mg PO DAILY 03/13/13 Omeprazole [Prilosec] 20 mg PO BIDWM 03/13/13 Potassium Chloride [Micro-K] 10 meq PO MOWEFR 03/13/13 Apixaban [Eliquis] 5 mg PO BID 07/04/16 Insulin Regular Human [NovoLIN R] 12 - 18 unit SUBQ BIDWM 03/24/19 Insulin Glargine,Hum.rec.anlog [Basaglar Kwikpen U-100] 10 unit SUBQ QPM 02/07/21 Rosuvastatin Calcium [Crestor] 2.5 mg PO QPM 02/07/21 Losartan [Cozaar] 100 mg PO DAILY 08/06/21 Tamsulosin [Flomax] 0.4 mg PO DAILY 08/06/21 Trospium Chloride 20 mg PO QPM 08/06/21 Albuterol Sulf [Ventolin Hfa Inhaler] 1 - 2 puffs INH Q4HR PRN 07/06/23 Finasteride [Proscar] 5 mg PO DAILY 01/02/24 Allergies/Adverse Reactions: Allergies Allergy/AdvReac Type Severity Reaction Status Date / Time Iodinated Contrast Media Allergy Hives Verified 07/06/23 12:26 caffeine AdvReac Unknown Verified 07/06/23 12:26 Anes History & Medical History - Anesthetic History Anesthesia Complications: reports: No previous complications Family history of Anesthesia Complications: Denies Family history of Malignant Hyperthermia: Denies - Medical History Cardiovascular: reports: Hypertension, High cholesterol, Coronary artery disease, Pulmonary embolism, Angina, Arrhythmia (has not taken AM doses of meds today as yet. 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[employer], caregiver supervisor sleeping bag department) Musculoskeletal: reports: Osteoarthritis Endocrine/Autoimmune: reports: Type 2 diabetes, HyPOthyroidism Blood Disorders: reports: None Skin: reports: Other Smoking Status: Never smoker - Surgical History General: reports: Hiatal hernia repair Eyes Ears Nose Throat (EENT): reports: Cataracts Cardiothoracic: reports: Cardiac catheterization Orthopedic: reports: Other Dermatologic: reports: Skin cancer surgery Plan Anesthesia Type: General, Spinal (pt refused any and all needles despite explaining benefits and placement with sedation) Consent for Procedure(s) Verified and Reviewed: Yes Code Status: Attempt Resuscitation ASA classification: 3-Severe systemic disease Is this case an emergency?: Yes
[2023-07-07] MEDS ORDERED: PROPOFOL 200 MG/20 ML VIAL IVP ONE (12:36)
[2023-07-07] MEDS ORDERED: fentaNYL 100 MCG/2 ML VIAL ONE ×2 (12:37→13:59)
[2023-07-07] MEDS ORDERED: BUPIVACAINE 0.5%-EPI 1:200000 PF 30 ML VIAL ONE ×2 (12:37→12:38)
[2023-07-07] MEDS ORDERED: LIDOCAINE-PF 2% 10 ML AMP SUBQ ONE (12:37)
[2023-07-07] MEDS ORDERED: ePHEDrine 50 MG/ML VIAL IVP ONE (12:56)
[2023-07-07] MEDS ORDERED: ceFAZolin 1 GM VIAL ONE (12:59)
[2023-07-07] MEDS ORDERED: LACTATED RINGERS 1,000 ML IV SCH ×2 (13:00→15:32)
[2023-07-07] MEDS ORDERED: ONDANSETRON 4 MG/2 ML VIAL ONE (13:53)
[2023-07-07] MEDS ORDERED: DEXAMETHASONE 4 MG/ML VIAL ONE (13:53)
[2023-07-07] MEDS ORDERED: BUPIVACAINE 0.5%-EPI 1:200000 PF 30 ML VIAL SUBQ ONE ×2 (14:01)
[2023-07-07] MEDS ORDERED: LACTATED RINGERS 1,000 ML IV ONE (15:14)
[2023-07-07] MEDS ORDERED: HYDROcod/ACETAM 5/325 MG TABLET PO PRN (15:22)
[2023-07-07] MEDS ORDERED: SODIUM CHLORIDE FLUSH 0.9% 10 ML SYRINGE IVP PRN (15:22)
[2023-07-07] MEDS ORDERED: HYDROmorphone 0.5 MG/0.5 ML SYRINGE ONE (15:22)
[2023-07-07] MEDS ORDERED: ceFAZolin (2G) 2 GM in SODIUM CHLORIDE 0.9% 100ML 100 ML IV STA (15:33)
--- NOTE | 2023-07-07 15:41 | OPERATIVE REPORT ---
Operative Report - General Admit Date: 07/06/23 Procedure Date: 07/07/23 Planned Procedure: InterTan nailing of left hip fracture Pre-Op Diagnosis: Closed left intertrochanteric hip fracture Procedure Performed: Closed reduction and interTan nailing of left hip fracture Post Op Diagnosis: Same - Procedure Note Primary Surgeon: Wilmer Love Secondary Surgeon: Matthew Sofia Anesthesia Provider: Horace Powell Anesthesia Technique: General ET tube IV Fluids (mL): 1,200 Estimated Blood Loss (mL): 150 Complications: None - Other Other Information/Narrative: Description of procedure: Patient was taken to the operating room in the afternoon of 07 July 2023 ways placed under a general anesthetic without any complications. He was then transferred in supine position to the [place] fracture table. His left fractured extremity was then placed in the longitudinal traction with the leg internally rotated approximately 20 degrees. The un fractured right extremity was then widely abducted and flexed and held in position in the well-leg lim. The C arm fluoroscopic machine was then positioned and views taken of the fracture of the left hip. We are able to vis ualize the fracture well as well as the femoral head in both AP and lateral projections. The proximal lateral left leg was then prepped and draped in usual fashion for our procedure. Making a 5 cm oblique incision just proximal to the tip of the greater trochanter we dissected through the skin the fascia barrington and were able to locate the threaded guidepin through the pin sleeve locating it at the tip of the greater trochanter. Its position was confirmed using fluoroscopy. We then advanced this pin down into the proximal femoral shaft. Its position and depth was confirmed on fluoroscopic views and AP and lateral projections. Satisfied with this we then proceeded to ream the proximal femur using the 16 mm channel reamer under power. This was advanced to the level of the lesser trochanter. We then removed the reamer and guidepin out of the wound. We then attempted to manually insert the selected short InterTAN nail (11-1/2 mm diameter, 125 degree angled nail) we were having difficulty advancing this nail because of a tight femoral canal. We removed the nail and then proceeded to ream the proximal femoral shaft. This was done by inserting a ball-tipped guide down the femoral shaft from our entry site. Its intraosseous intramedullary position was confirmed using fluoroscopic view and AP and lateral projection. We then sequentially reamed the proximal femoral shaft with the flexible reamers starting with the first the 11.5 mm reamer followed by the 13 mm reamer. Then removed our guide pin and reamers. We then proceeded to more easily insert the selected short InterTAN nail down the prepared proximal femoral shaft. This was advanced until the proximal oblique hole of our nail was in alignment with the femoral neck and femoral head. This was seen in AP and lateral projection. We then proceeded to insert the lag screw guide into our out regular of the nail retail operations manager. This was through a small incision in the proximal lateral thigh. This was advanced until the guide locked into place. We then placed the 3 to 2 mm pin drill sleeve and our guide. This was followed by the insertion of our threaded tip 3.2 millimeter guidepin which was inserted under power. As we advanced this pin we confirmed with AP and lateral fluoroscopic views that the pin was in essentially a central femoral neck and femoral head position in AP and lateral projections. This was drilled and advanced until the tip of our guide pin was within 3 mm from the femoral subchondral bone. Next we removed the drill the pin sleeve and proceeded to ream the proximal femur femoral neck a nd femoral head up to the tip of our guidepin using the lag screw reamer. The reamer was then removed and the selected subcu trochanteric hip lag screw was then inserted. The length of the screw was 110 mm. This was determined from a direct measurement from the guidepin which had been inserted earlier. We advanced our selected lag screw through the lag screw guide until the end of the screw was flush to the lateral femoral cortex on the AP view. Fluoroscopic views showed good position and depth of our lag screw in both AP and lateral projections with the fluoroscopy. We then applied compression across the fracture using the compression knob fluoroscopic views and AP and lateral projection showed the compression of our fracture satisfied with this we then proceeded to advance the locking screw at the proximal end of our nail. This was screwed tightly and backed off in a THIPA turn. Next removed the insertion apparatus and our compression knob from our inserted hip lag screw. The last step was then done. Small skin incision was made and the combined silver and gold drill sleeves were inserted through the distal end of our insertion apparatus and advanced to the lateral femoral cortex. Then proceeded to drill the lateral and medial femoral shaft cortex through our guides. Went to be perforated the medial cortex this was confirmed with fluoroscopic views in the AP projection. Using the direct measuring device we determined a 32.5 mm, 5 mm diameter distal locking screw would be utilized. After removing the in anterior silver sleeve guide we then inserted our selected distal locking screw over our gold sleeve drill sleeve. Fluoroscopic views confirmed that the screw was inserted in the proper position and proper depth. We then obtained final fluoroscopic views and AP and lateral projection both at the distal end of our nail as well as the proximal and showing good reduction of her fracture and satisfactory placement of hardware in the femoral shaft and the femoral head. We then removed the insertion out regular apparatus. We then irrigated the wounds out thoroughly with saline. Closed the wounds in layers using several interrupted stitches of 0 Vicryl to approximate the fascia barrington incisions. Subcutaneous tissues closed with buried simple stitches of 2-0 Vicryl. Finally skin karlie used approximate the skin edge. Applied Xeroform gauze 4 x 4's and foam tape to dress his hip wounds. Patient was then taken off the fracture table in satisfactory condition and taken to recovery room. Estimated blood loss 150 cc Replacement: 1200 cc of crystalloid Intraoperative complications: None Plan: Patient will go into routine postoperative care following hip fracture stabilization. Will be weightbearing as tolerated in his extremity.
--- NOTE | 2023-07-07 15:46 | ANESTHESIA POST OP EVALUATION ---
Anesthesia Post Eval - Post Anesthesia Eval Vitals: Last Vital Signs Temp 36.5 C 07/07/23 15:39 Pulse 92 07/07/23 15:41 Resp 16 07/07/23 15:41 BP 139/68 H 07/07/23 15:41 Pulse Ox 95 07/07/23 15:41 O2 Flow Rate 2 07/07/23 11:00 CV Function Including HR & BP: Stable Pain Control: Satisfactory Nausea & Vomiting: Negative Mental Status: Baseline Respiratory Status: Airway Patent Hydration Status: Satisfactory Anesthesia Complications: None
[2023-07-07] MEDS: ACETAMINOPHEN 325 MG TABLET PO PRN (20:26)
[2023-07-07] MEDS: APIXABAN 5 MG TABLET PO SCH (20:27)
[2023-07-07] MEDS: LACTATED RINGERS 1,000 ML IV SCH (20:27)
[2023-07-07] MEDS: INSULIN REGULAR HUMAN 300 UNIT/3 ML VIAL SUBQ SCH (20:48)
--- NOTE | 2023-07-07 22:12 | PROVIDER PROGRESS NOTE ---
Assessment/Plan - Problem List (1) Intertrochanteric fracture of left femur Assessment/Plan: Hold Apixaban Orthopedic Consult [place] as needed for pain control - Current Meds Current Meds: Current Medications Generic Name Dose Route Start Last Admin Trade Name Freq PRN Reason Stop Dose Admin Acetaminophen 650 - 975 mg 07/07/23 15:22 07/07/23 20:26 Acetaminophen 325 Mg Tablet PO 650 mg Q4HR PRN Administration PAIN Hydrocodone Bitart/Acetaminophen 1 tab 07/06/23 19:45 07/07/23 09:09 Hydrocod/Acetam 5/325 Mg Tablet PO 1 tab Q4HR PRN Administration Moderate Pain (Level 4-6) Apixaban 5 mg 07/07/23 21:00 07/07/23 20:27 Apixaban 5 Mg Tablet PO 5 mg BID JOMAR Administration Lactated Ringer's 1,000 mls @ 60 mls/hr 07/07/23 20:00 07/07/23 20:27 Lr IV 60 mls/hr .[id number] JOMAR Administration Insulin Human Regular 1 - 5 unit 07/07/23 20:00 07/07/23 20:48 Insulin Regular Human 300 Unit/3 Ml Vial SUBQ 2 unit Q6HR JOMAR Administration Protocol Losartan Potassium 50 mg 07/06/23 21:00 07/07/23 10:19 Losartan 50 Mg Tablet PO 50 mg DAILY JOMAR Administration Sodium Chloride 10 ml 07/06/23 17:00 07/07/23 16:28 Sodium Chloride Flush 0.9% 10 Ml Syringe IVP 10 ml 0100,0900,1700 JOMAR Administration Sodium Chloride 10 ml 07/07/23 17:00 07/07/23 16:28 Sodium Chloride Flush 0.9% 10 Ml Syringe IVP 10 ml 0100,0900,1700 JOMAR Administration - Lab Result Fish Bone Diagrams: 07/06/23 12:47 07/06/23 12:47 - Additional Planning My Orders: My Active Orders 07/07/23 19:45 Blood Glucose POC [RC] 0000,0600,1200,1800 07/07/23 19:51 Initiate Hypoglycemia Protocol [RC] .protocol Initiate Hypoglycemia Protocol [RC] .protocol 07/07/23 20:00 Insulin Regular Human [Humulin R] 1 - 5 unit SUBQ Q6HR Lactated Ringers [Lr] 1,000 ml IV 60 mls/hr Subjective - Subjective Patient Reports: Other (Alert. Denies shortness of breath, chest pain, nausea and vomiting.) Objective Vital Signs: Vital Signs - 24 hr 07/06/23 07/07/23 07/07/23 23:56 08:00 11:00 Temperature 36.9 C 36.8 C Heart Rate Heart Rate [ 70 68 Brachial] Respiratory 18 18 Rate Blood Pressure Blood Pressure 183/91 H 166/81 H [Right Brachial artery] O2 Saturation 95 94 If not protocol 2 2 : Oxygen Flow, liters/minute 07/07/23 07/07/23 07/07/23 15:19 15:25 15:30 Temperature Heart Rate 101 H 96 96 Heart Rate [ Brachial] Respiratory 21 15 14 Rate Blood Pressure 131/54 H 129/84 H Blood Pressure [Right Brachial artery] O2 Saturation 96 97 100 If not protocol : Oxygen Flow, liters/minute 07/07/23 07/07/23 07/07/23 15:36 15:39 15:41 Temperature 36.5 C Heart Rate 97 96 92 Heart Rate [ Brachial] Respiratory 18 16 16 Rate Blood Pressure 107/64 139/68 H Blood Pressure [Right Brachial artery] O2 Saturation 97 96 95 If not protocol : Oxygen Flow, liters/minute 07/07/23 07/07/23 07/07/23 15:59 16:53 17:53 Temperature 37 C 37 C 37.1 C Heart Rate Heart Rate [ 69 70 84 Brachial] Respiratory 14 16 18 Rate Blood Pressure Blood Pressure 112/70 136/75 H 153/84 H [Right Brachial artery] O2 Saturation 98 97 96 If not protocol 2 2 2 : Oxygen Flow, liters/minute 07/07/23 20:30 Temperature 37 C Heart Rate Heart Rate [ 101 H Brachial] Respiratory 20 Rate Blood Pressure Blood Pressure 135/92 H [Right Brachial artery] O2 Saturation 94 If not protocol 1 : Oxygen Flow, liters/minute Oxygen O2 Source [With Activity] Room air O2 Source Nasal cannula Oxygen Flow Rate 2 I&O (Last 24 Hrs): Intake and Output Totals x24h 07/05/23 07/06/23 07/07/23 23:59 23:59 23:59 Intake Total 270 300 Output Total 175 350 Balance 95 -50 General: Alert, Oriented x3, No acute distress HEENT: Atraumatic, PERRLA, EOMI Neck: Supple, No JVD, No thyromegaly Lymphatic: no adenopathy Neuro: Alert, Non Focal Cardiovascular: Regular rate, Normal S1, Normal S2, No murmurs Respiratory: Chest non-tender, No respiratory distress, Wheezes, Other (No wheezing. No crackles.) Abdomen: Normal bowel sounds, Soft, No tenderness Extremities: No clubbing, No cyanosis, No edema Skin: No rashes - Results Results: Laboratory Results WBC 12.3 x10^3/uL (4.8-10.8) H 07/06/23 12:47 RBC 4.88 10^6/uL (4.70-6.10) 07/06/23 12:47 Hgb 14.8 g/dL (14.0-18.0) 07/06/23 12:47 Hct 45.5 % (42.0-52.0) 07/06/23 12:47 MCV 93.2 fL (80.0-94.0) 07/06/23 12:47 MCH 30.3 pg (27.0-31.0) 07/06/23 12:47 MCHC 32.5 g/dL (32.0-36.0) 07/06/23 12:47 RDW 14.1 % (12.0-15.0) 07/06/23 12:47 Plt Count 192 10^3/uL (130-450) 07/06/23 12:47 MPV 9.0 fL (7.4-11.4) 07/06/23 12:47 Neut # (Auto) 8.8 10^3/uL (1.5-6.6) H 07/06/23 12:47 Lymph # (Auto) 2.2 10^3/uL (1.5-3.5) 07/06/23 12:47 [place] # (Auto) 0.9 10^3/uL (0.0-1.0) 07/06/23 12:47 Eos # (Auto) 0.3 10^3/uL (0.0-0.7) 07/06/23 12:47 Baso # (Auto) 0.1 10^3/uL (0.0-0.1) 07/06/23 12:47 Absolute Nucleated RBC 0.00 x10^3/uL 07/06/23 12:47 Nucleated RBC % 0.0 /100WBC 07/06/23 12:47 PT 16.6 secs (9.9-12.6) H 07/06/23 12:47 INR 1.5 (0.8-1.2) H 07/06/23 12:47 APTT 32.3 secs (24.9-33.3) 07/06/23 12:47 Sodium 136 mmol/L (135-145) 07/06/23 12:47 Potassium 4.9 mmol/L (3.5-4.5) H 07/06/23 12:47 Chloride 101 mmol/L (101-111) 07/06/23 12:47 Carbon Dioxide 30 mmol/L (21-32) 07/06/23 12:47 Anion Gap 5.0 (6-13) L 07/06/23 12:47 BUN 35 mg/dL (6-20) H 07/06/23 12:47 Creatinine 1.4 mg/dL (0.6-1.3) H 07/06/23 12:47 Estimated GFR (MDRD) 48 (>89) L 07/06/23 12:47 Glucose 144 mg/dL (74-104) H 07/06/23 12:47 Calcium 9.5 mg/dL (8.5-10.3) 07/06/23 12:47 Magnesium 1.9 mg/dL (1.7-2.3) 07/06/23 12:47 Total Bilirubin 1.2 mg/dL (0.2-1.0) H 07/06/23 12:47 AST 15 IU/L (10-42) 07/06/23 12:47 ALT 12 IU/L (10-60) 07/06/23 12:47 Alkaline Phosphatase 78 IU/L (42-121) 07/06/23 12:47 B-Natriuretic Peptide 79 pg/mL (5-100) 07/06/23 12:47 Total Protein 7.2 g/dL (6.4-8.9) 07/06/23 12:47 Albumin 3.8 g/dL (3.2-5.5) 07/06/23 12:47 Globulin 3.4 g/dL (2.1-4.2) 07/06/23 12:47 Albumin/Globulin Ratio 1.1 (1.0-2.2) 07/06/23 12:47 Lipase < 10 U/L (11-82) L 07/06/23 12:47 Blood Type O POSITIVE 07/06/23 16:14 Blood Type Recheck O POSITIVE 07/06/23 16:17 Antibody Screen NEGATIVE 07/06/23 16:14 - Procedures Procedures: Procedures ARTHROPLASTY OF MCP & INTERPHALANG JT W/O IMPLANT (03/19/15) REPOSITION RIGHT HUMERAL SHAFT WITH INT FIX, OPEN APPROACH (10/03/18) Current Medications - Current Medications Current Medications: Active Medications Acetaminophen (Acetaminophen 325 Mg Tablet) 650 - 975 mg PO Q4HR PRN PRN Reason: PAIN Last Admin: 07/07/23 20:26 Dose: 650 mg Hydrocodone Bitart/Acetaminophen (Hydrocod/Acetam 5/325 Mg Tablet) 1 tab PO Q4HR PRN PRN Reason: Moderate Pain (Level 4-6) Last Admin: 07/07/23 09:09 Dose: 1 tab Hydrocodone Bitart/Acetaminophen (Hydrocod/Acetam 5/325 Mg Tablet) 1 tab PO Q4HR PRN PRN Reason: PAIN Apixaban (Apixaban 5 Mg Tablet) 5 mg PO BID [facility] Last Admin: 07/07/23 20:27 Dose: 5 mg Docusate Sodium (Docusate Sodium 100 Mg Capsule) 100 mg PO BID PRN PRN Reason: Constipation Lactated Ringer's (Lr) 1,000 mls @ 60 mls/hr IV .[id number] [facility] Last Admin: 07/07/23 20:27 Dose: 60 mls/hr Insulin Human Regular (Insulin Regular Human 300 Unit/3 Ml Vial) 1 - 5 unit SUBQ Q6HR [facility]; Protocol Last Admin: 07/07/23 20:48 Dose: 2 unit Losartan Potassium (Losartan 50 Mg Tablet) 50 mg PO DAILY [facility] Last Admin: 07/07/23 10:19 Dose: 50 mg Ondansetron HCl (Ondansetron 4 Mg/2 Ml Vial) 4 mg IVP Q6HR PRN PRN Reason: Nausea / Vomiting Sodium Chloride (Sodium Chloride Flush 0.9% 10 Ml Syringe) 10 ml IVP PRN PRN PRN Reason: NEEDED PER PROVIDER ORDERS Sodium Chloride (Sodium Chloride Flush 0.9% 10 Ml Syringe) 10 ml IVP 0100,0900,1700 [facility] Last Admin: 07/07/23 16:28 Dose: 10 ml Sodium Chloride (Sodium Chloride Flush 0.9% 10 Ml Syringe) 10 ml IVP 0100,0900,1700 [facility] Last Admin: 07/07/23 16:28 Dose: 10 ml Sodium Chloride (Sodium Chloride Flush 0.9% 10 Ml Syringe) 10 ml IVP PRN PRN PRN Reason: NEEDED PER PROVIDER ORDERS Furosemide 20 mg PO MOWEFR 03/13/13 Gabapentin [Neurontin] 300 mg PO TID 03/13/13 Levothyroxine [Synthroid] 25 mcg PO DAILY 03/13/13 Metoprolol Succinate [Toprol Xl] 100 mg PO DAILY 03/13/13 Omeprazole [Prilosec] 20 mg PO BIDWM 03/13/13 Potassium Chloride [Micro-K] 10 meq PO MOWEFR 03/13/13 Apixaban [Eliquis] 5 mg PO BID 07/04/16 Insulin Regular Human [NovoLIN R] 12 - 18 unit SUBQ BIDWM 03/24/19 Insulin Glargine,Hum.rec.anlog [Basaglar Kwikpen U-100] 10 unit SUBQ QPM 02/07/21 Rosuvastatin Calcium [Crestor] 2.5 mg PO QPM 02/07/21 Losartan [Cozaar] 100 mg PO DAILY 08/06/21 Tamsulosin [Flomax] 0.4 mg PO DAILY 08/06/21 Trospium Chloride 20 mg PO QPM 08/06/21 Albuterol Sulf [Ventolin Hfa Inhaler] 1 - 2 puffs INH Q4HR PRN 07/06/23 Finasteride [Proscar] 5 mg PO DAILY 07/06/23
[2023-07-08] MEDS: INSULIN REGULAR HUMAN 300 UNIT/3 ML VIAL SUBQ SCH ×2 (00:29→06:26)
[2023-07-08] MEDS: SODIUM CHLORIDE FLUSH 0.9% 10 ML SYRINGE IVP SCH ×5 (00:31→17:34)
[2023-07-08] MEDS: HYDROcod/ACETAM 5/325 MG TABLET PO PRN ×4 (04:58→18:26)
[2023-07-08 05:29] LABS: BASOPHILS % (AUTO) 0.1 %; EOSINOPHILS % (AUTO) 0.1 %; HCT - HEMATOCRIT 32.9 % (42.0-52.0); HGB - HEMOGLOBIN 10.7 g/dL (14.0-18.0); LYMPHOCYTES % (AUTO) 7.9 %; MEAN CORPUSCULAR HEMOGLOBIN 30.6 pg (27.0-31.0); MEAN CORPUSCULAR HGB CONC 32.5 g/dL (32.0-36.0); MEAN PLATELET VOLUME 9.4 fL (7.4-11.4); MONOCYTES # (AUTO) 1.4 10^3/uL (0.0-1.0); MONOCYTES % (AUTO) 10.9 %; NEUTROPHILS # (AUTO) 10.5 10^3/uL (1.5-6.6); NEUTROPHILS % (AUTO) 80.4 %; PLT - PLATELET COUNT 145 10^3/uL (130-450); RED CELL DISTRIBUTION WIDTH 14.1 % (12.0-15.0); WHITE BLOOD COUNT 13.1 x10^3/uL (4.8-10.8)
[2023-07-08 05:46] LABS: ALBUMIN 3.1 g/dL (3.2-5.5); ALBUMIN/GLOBULIN RATIO 1.2 (1.0-2.2); BILIRUBIN,TOTAL 1.4 mg/dL (0.2-1.0); CALCIUM 8.4 mg/dL (8.5-10.3); CREATININE 1.2 mg/dL (0.6-1.3); POTASSIUM 5.1 mmol/L (3.5-4.5); TOTAL PROTEIN 5.7 g/dL (6.4-8.9)
[2023-07-08] MEDS: DOCUSATE SODIUM 100 MG CAPSULE PO PRN (06:29)
[2023-07-08] MEDS: INSULIN LISPRO 300 UNIT/3 ML PEN SUBQ SCH ×4 (08:27→20:55)
[2023-07-08] MEDS: LOSARTAN 50 MG TABLET PO SCH (08:33)
[2023-07-08] MEDS: APIXABAN 5 MG TABLET PO SCH ×2 (08:33→20:55)
--- NOTE | 2023-07-08 11:17 | PROVIDER PROGRESS NOTE ---
Subjective - Prog Note Date Prog Note Date: 07/08/23 Prog Note Time: 11:15 - Subjective Subjective: S: Patient is having less pain in his hip today. Does complain of an occasional spasm around his incision site. No distal weakness or numbness noted. O: On examination patient has some mild tenderness on palpation over his proximal incision site. Dressing intact. Able to rotate the hip about 20 degrees with minimal discomfort today. Neurovascular intact distally. Moves his toes satisfactory. Laboratory: Hematocrit 31. Urine culture and sensitivity: No growth Assessment: Status post InterTAN nailing for a left hip fracture-doing well first day postoperatively Plan: Patient will continue with physical therapy as ordered and will be weightb earing as tolerated on his left lower extremity. Walker ambulate as tolerated Objective - Vital Signs/Intake & Output Vital Signs: Vital Signs x48h Temp Pulse Resp BP Pulse Ox O2 Flow Rate 07/08/23 08:17 36.7 C 103 H 20 151/81 H 94 1 07/08/23 07:00 1 07/08/23 05:12 93 2 07/08/23 05:10 36.7 C 106 H 16 139/94 H 90 L 1 Intake & Output: Intake & Output 07/05/23 07/06/23 07/07/23 07/08/23 23:59 23:59 23:59 23:59 Intake Total 270 300 860 Output Total 175 350 700 Balance 95 -50 160 - Lab Results Fish Bones: 07/08/23 05:08 07/08/23 05:08 Other Labs: Lab Results x24hrs 07/08/23 07/08/23 Range/Units 05:08 05:08 WBC 13.1 H (4.8-10.8) x10^3/uL RBC 3.50 L (4.70-6.10) 10^6/uL Hgb 10.7 L (14.0-18.0) g/dL Hct 32.9 L (42.0-52.0) % MCV 94.0 (80.0-94.0) fL MCH 30.6 (27.0-31.0) pg MCHC 32.5 (32.0-36.0) g/dL RDW 14.1 (12.0-15.0) % Plt Count 145 (130-450) 10^3/uL MPV 9.4 (7.4-11.4) fL Neut # (Auto) 10.5 H (1.5-6.6) 10^3/uL Lymph # (Auto) 1.0 L (1.5-3.5) 10^3/uL [place] # (Auto) 1.4 H (0.0-1.0) 10^3/uL Eos # (Auto) 0.0 (0.0-0.7) 10^3/uL Baso # (Auto) 0.0 (0.0-0.1) 10^3/uL Absolute Nucleated RBC 0.00 x10^3/uL Nucleated RBC % 0.0 /100WBC Sodium 134 L (135-145) mmol/L Potassium 5.1 H (3.5-4.5) mmol/L Chloride 102 (101-111) mmol/L Carbon Dioxide 26 (21-32) mmol/L Anion Gap 6.0 (6-13) BUN 26 H (6-20) mg/dL Creatinine 1.2 (0.6-1.3) mg/dL Estimated GFR (MDRD) 57 L (>89) Glucose 200 H (74-104) mg/dL Calcium 8.4 L (8.5-10.3) mg/dL Total Bilirubin 1.4 H (0.2-1.0) mg/dL AST 12 (10-42) IU/L ALT 7 L (10-60) IU/L Alkaline Phosphatase 59 (42-121) IU/L Total Protein 5.7 L (6.4-8.9) g/dL Albumin 3.1 L (3.2-5.5) g/dL Globulin 2.6 (2.1-4.2) g/dL Albumin/Globulin Ratio 1.2 (1.0-2.2)
[2023-07-08] MEDS: LACTATED RINGERS 1,000 ML IV SCH (12:18)
[2023-07-08] MEDS: ACETAMINOPHEN 325 MG TABLET PO PRN (16:59)
[2023-07-08] MEDS: CALCIUM CARBONATE CHEW 500 MG TABLET PO SCH (16:59)
[2023-07-08] MEDS: CHOLECALCIFEROL 25 MCG TABLET PO SCH (16:59)
[2023-07-08 20:33] LABS: ESTIMATED AVERAGE GLUCOSE 146 mg/dL (70-100); HEMOGLOBIN A1c% 6.7 % (4.27-6.07)
--- NOTE | 2023-07-08 20:46 | PROVIDER PROGRESS NOTE ---
Assessment/Plan - Problem List (1) Intertrochanteric fracture of left femur Assessment/Plan: (1) Intertrochanteric fracture of left femur Assessment/Plan: Hold Apixaban Orthopedic Consult [place] as needed for pain control (2) Atrial fibrillation Assessment/Plan: Stable. Continue apixaban Add metoprolol as tolerate for rate control (3) Hypertension Assessment/Plan: Continue Losartan (4) Diabetes mellitus Assessment/Plan: Sliding scale insulin (5) Anemia Assessment/Plan: Most likely dilutional. Continue to follow Hemoglobin and hematoctrit - Current Meds Current Meds: Current Medications Generic Name Dose Route Start Last Admin Trade Name Freq PRN Reason Stop Dose Admin Acetaminophen 650 - 975 mg 07/07/23 15:22 07/08/23 16:59 Acetaminophen 325 Mg Tablet PO 975 mg Q4HR PRN Administration PAIN Hydrocodone Bitart/Acetaminophen 1 tab 07/06/23 19:45 07/08/23 18:26 Hydrocod/Acetam 5/325 Mg Tablet PO 1 tab Q4HR PRN Administration Moderate Pain (Level 4-6) Apixaban 5 mg 07/07/23 21:00 07/08/23 08:33 Apixaban 5 Mg Tablet PO 5 mg BID JOMAR Administration Calcium Carbonate/Glycine 500 mg 07/08/23 17:00 07/08/23 16:59 Calcium Carbonate Chew 500 Mg Tablet PO 500 mg DAILY JOMAR Administration Cholecalciferol 50 mcg 07/08/23 17:00 07/08/23 16:59 Cholecalciferol 25 Mcg Tablet PO 50 mcg DAILY JOMAR Administration Docusate Sodium 100 mg 07/07/23 15:22 07/08/23 06:29 Docusate Sodium 100 Mg Capsule PO 100 mg BID PRN Administration Constipation Lactated Ringer's 1,000 mls @ 60 mls/hr 07/07/23 20:00 07/08/23 12:18 Lr IV 60 mls/hr .[id number] JOMAR Administration Insulin Human Lispro 1 - 9 unit 07/08/23 17:00 07/08/23 17:10 Insulin Lispro 300 Unit/3 Ml Pen SUBQ 5 unit 0800,1200,1700,2100 JOMAR Administration Protocol Losartan Potassium 50 mg 07/06/23 21:00 07/08/23 08:33 Losartan 50 Mg Tablet PO 50 mg DAILY JOMAR Administration Sodium Chloride 10 ml 07/06/23 17:00 07/08/23 17:34 Sodium Chloride Flush 0.9% 10 Ml Syringe IVP Not Given 0100,0900,1700 [facility] Sodium Chloride 10 ml 07/07/23 17:00 07/08/23 17:34 Sodium Chloride Flush 0.9% 10 Ml Syringe IVP Not Given 0100,0900,1700 JOMAR - Lab Result Fish Bone Diagrams: 07/08/23 05:08 07/08/23 05:08 - Additional Planning My Orders: My Active Orders 07/07/23 19:45 Blood Glucose POC [RC] 0800,1200,1700,2100 07/07/23 19:51 Initiate Hypoglycemia Protocol [RC] .protocol 07/07/23 20:00 Lactated Ringers [Lr] 1,000 ml IV 60 mls/hr 07/08/23 05:08 HEMOGLOBIN A1c% [CHEM] Routine 07/08/23 Dinner Carb-controlled Diet [DIET] 07/08/23 17:00 Calcium Carbonate [Tums] 500 mg PO DAILY Cholecalciferol [Vitamin D3] 50 mcg PO DAILY Insulin Lispro [Humalog Kwikpen U-100] 1 - 9 unit SUBQ 0800,1200,1700,2100 07/09/23 09:00 Senna [Senokot] 8.6 - 17.2 mg PO DAILY polyethylene glycoL 3350 [Miralax] 17 gm PO DAILY Subjective - Subjective Patient Reports: Other (Alert. Denies shortness of breath, chest pain, nausea and vomiting.) Objective Vital Signs: Vital Signs - 24 hr 07/07/23 07/08/23 07/08/23 23:34 05:10 05:12 Temperature 36.9 C 36.7 C Heart Rate [ 104 H 106 H Brachial] Respiratory 18 16 Rate Blood Pressure 103/68 139/94 H [Right Brachial artery] O2 Saturation 95 90 L 93 If not protocol 1 1 2 : Oxygen Flow, liters/minute 07/08/23 07/08/23 07/08/23 07:00 08:17 13:07 Temperature 36.7 C 36.2 C L Heart Rate [ 103 H 106 H Brachial] Respiratory 20 20 Rate Blood Pressure 151/81 H 127/86 H [Right Brachial artery] O2 Saturation 94 94 If not protocol 1 1 1 : Oxygen Flow, liters/minute 07/08/23 07/08/23 15:47 20:23 Temperature 36.7 C 36.7 C Heart Rate [ 104 H 88 Brachial] Respiratory 16 20 Rate Blood Pressure 143/66 H 136/83 H [Right Brachial artery] O2 Saturation 94 92 If not protocol 1 : Oxygen Flow, liters/minute Oxygen O2 Source [With Activity] Room air O2 Source Room air Oxygen Flow Rate 2 I&O (Last 24 Hrs): Intake and Output Totals x24h 07/06/23 07/07/23 07/08/23 23:59 23:59 23:59 Intake Total 920 323 8936 Output Total 028 762 6519 Balance 95 -50 1026 General: Alert, Oriented x3, No acute distress HEENT: Atraumatic, PERRLA, EOMI Neck: Supple, No JVD, No thyromegaly Lymphatic: no adenopathy Neuro: Alert, Non Focal Cardiovascular: Regular rate, Normal S1, Normal S2, No murmurs Respiratory: Chest non-tender, No respiratory distress, Other (No wheezing. No crackles) Abdomen: Normal bowel sounds, Soft, No tenderness Extremities: No clubbing, No cyanosis, No edema Skin: No rashes - Results Results: Laboratory Results WBC 13.1 x10^3/uL (4.8-10.8) H 07/08/23 05:08 RBC 3.50 10^6/uL (4.70-6.10) L 07/08/23 05:08 Hgb 10.7 g/dL (14.0-18.0) L 07/08/23 05:08 Hct 32.9 % (42.0-52.0) L 07/08/23 05:08 MCV 94.0 fL (80.0-94.0) 07/08/23 05:08 MCH 30.6 pg (27.0-31.0) 07/08/23 05:08 MCHC 32.5 g/dL (32.0-36.0) 07/08/23 05:08 RDW 14.1 % (12.0-15.0) 07/08/23 05:08 Plt Count 145 10^3/uL (130-450) 07/08/23 05:08 MPV 9.4 fL (7.4-11.4) 07/08/23 05:08 Neut # (Auto) 10.5 10^3/uL (1.5-6.6) H 07/08/23 05:08 Lymph # (Auto) 1.0 10^3/uL (1.5-3.5) L 07/08/23 05:08 [place] # (Auto) 1.4 10^3/uL (0.0-1.0) H 07/08/23 05:08 Eos # (Auto) 0.0 10^3/uL (0.0-0.7) 07/08/23 05:08 Baso # (Auto) 0.0 10^3/uL (0.0-0.1) 07/08/23 05:08 Absolute Nucleated RBC 0.00 x10^3/uL 07/08/23 05:08 Nucleated RBC % 0.0 /100WBC 07/08/23 05:08 PT 16.6 secs (9.9-12.6) H 07/06/23 12:47 INR 1.5 (0.8-1.2) H 07/06/23 12:47 APTT 32.3 secs (24.9-33.3) 07/06/23 12:47 Sodium 134 mmol/L (135-145) L 07/08/23 05:08 Potassium 5.1 mmol/L (3.5-4.5) H 07/08/23 05:08 Chloride 102 mmol/L (101-111) 07/08/23 05:08 Carbon Dioxide 26 mmol/L (21-32) 07/08/23 05:08 Anion Gap 6.0 (6-13) 07/08/23 05:08 BUN 26 mg/dL (6-20) H 07/08/23 05:08 Creatinine 1.2 mg/dL (0.6-1.3) 07/08/23 05:08 Estimated GFR (MDRD) 57 (>89) L 07/08/23 05:08 Glucose 200 mg/dL (74-104) H 07/08/23 05:08 Calcium 8.4 mg/dL (8.5-10.3) L 07/08/23 05:08 Magnesium 1.9 mg/dL (1.7-2.3) 07/06/23 12:47 Total Bilirubin 1.4 mg/dL (0.2-1.0) H 07/08/23 05:08 AST 12 IU/L (10-42) 07/08/23 05:08 ALT 7 IU/L (10-60) L 07/08/23 05:08 Alkaline Phosphatase 59 IU/L (42-121) 07/08/23 05:08 B-Natriuretic Peptide 79 pg/mL (5-100) 07/06/23 12:47 Total Protein 5.7 g/dL (6.4-8.9) L 07/08/23 05:08 Albumin 3.1 g/dL (3.2-5.5) L 07/08/23 05:08 Globulin 2.6 g/dL (2.1-4.2) 07/08/23 05:08 Albumin/Globulin Ratio 1.2 (1.0-2.2) 07/08/23 05:08 Lipase < 10 U/L (11-82) L 07/06/23 12:47 Blood Type O POSITIVE 07/06/23 16:14 Blood Type Recheck O POSITIVE 07/06/23 16:17 Antibody Screen NEGATIVE 07/06/23 16:14 - Procedures Procedures: Procedures ARTHROPLASTY OF MCP & INTERPHALANG JT W/O IMPLANT (03/19/15) REPOSITION RIGHT HUMERAL SHAFT WITH INT FIX, OPEN APPROACH (10/03/18) ABX Reporting Has patient been on IV antibiotics over the past 48 hours?: Yes Current Medications - Current Medications Current Medications: Active Medications Acetaminophen (Acetaminophen 325 Mg Tablet) 650 - 975 mg PO Q4HR PRN PRN Reason: PAIN Last Admin: 07/08/23 16:59 Dose: 975 mg Hydrocodone Bitart/Acetaminophen (Hydrocod/Acetam 5/325 Mg Tablet) 1 tab PO Q4HR PRN PRN Reason: Moderate Pain (Level 4-6) Last Admin: 07/08/23 18:26 Dose: 1 tab Apixaban (Apixaban 5 Mg Tablet) 5 mg PO BID [facility] Last Admin: 07/08/23 08:33 Dose: 5 mg Calcium Carbonate/Glycine (Calcium Carbonate Chew 500 Mg Tablet) 500 mg PO DAILY [facility] Last Admin: 07/08/23 16:59 Dose: 500 mg Cholecalciferol (Cholecalciferol 25 Mcg Tablet) 50 mcg PO DAILY [facility] Last Admin: 07/08/23 16:59 Dose: 50 mcg Docusate Sodium (Docusate Sodium 100 Mg Capsule) 100 mg PO BID PRN PRN Reason: Constipation Last Admin: 07/08/23 06:29 Dose: 100 mg Lactated Ringer's (Lr) 1,000 mls @ 60 mls/hr IV .[id number] [facility] Last Admin: 07/08/23 12:18 Dose: 60 mls/hr Insulin Human Lispro (Insulin Lispro 300 Unit/3 Ml Pen) 1 - 9 unit SUBQ 0800,1200,1700,2100 [facility]; Protocol Last Admin: 07/08/23 17:10 Dose: 5 unit Losartan Potassium (Losartan 50 Mg Tablet) 50 mg PO DAILY [facility] Last Admin: 07/08/23 08:33 Dose: 50 mg Ondansetron HCl (Ondansetron 4 Mg/2 Ml Vial) 4 mg IVP Q6HR PRN PRN Reason: Nausea / Vomiting Polyethylene Glycol (Polyethylene Glycol 3350 17 Gm Packet) 17 gm PO DAILY [facility] Senna (Senna 8.6 Mg Tablet) 8.6 - 17.2 mg PO DAILY [facility] Sodium Chloride (Sodium Chloride Flush 0.9% 10 Ml Syringe) 10 ml IVP PRN PRN PRN Reason: NEEDED PER PROVIDER ORDERS Sodium Chloride (Sodium Chloride Flush 0.9% 10 Ml Syringe) 10 ml IVP 0100,0900,1700 [facility] Last Admin: 07/08/23 17:34 Dose: Not Given Sodium Chloride (Sodium Chloride Flush 0.9% 10 Ml Syringe) 10 ml IVP 0100,0900,1700 [facility] Last Admin: 07/08/23 17:34 Dose: Not Given Sodium Chloride (Sodium Chloride Flush 0.9% 10 Ml Syringe) 10 ml IVP PRN PRN PRN Reason: NEEDED PER PROVIDER ORDERS Furosemide 20 mg PO MOWEFR 03/13/13 Gabapentin [Neurontin] 300 mg PO TID 03/13/13 Levothyroxine [Synthroid] 25 mcg PO DAILY 03/13/13 Metoprolol Succinate [Toprol Xl] 100 mg PO DAILY 03/13/13 Omeprazole [Prilosec] 20 mg PO BIDWM 03/13/13 Potassium Chloride [Micro-K] 10 meq PO MOWEFR 03/13/13 Apixaban [Eliquis] 5 mg PO BID 07/04/16 Insulin Regular Human [NovoLIN R] 12 - 18 unit SUBQ BIDWM 03/24/19 Insulin Glargine,Hum.rec.anlog [Basaglar Malcomikdarin U-100] 10 unit SUBQ QPM 02/07/21 Rosuvastatin Calcium [Crestor] 2.5 mg PO QPM 02/07/21 Losartan [Cozaar] 100 mg PO DAILY 08/06/21 Tamsulosin [Flomax] 0.4 mg PO DAILY 08/06/21 Trospium Chloride 20 mg PO QPM 08/06/21 Albuterol Sulf [Ventolin Hfa Inhaler] 1 - 2 puffs INH Q4HR PRN 07/06/23 Finasteride [Proscar] 5 mg PO DAILY 07/06/23
[2023-07-09] MEDS: SODIUM CHLORIDE FLUSH 0.9% 10 ML SYRINGE IVP SCH ×4 (00:23→17:10)
[2023-07-09] MEDS: HYDROcod/ACETAM 5/325 MG TABLET PO PRN ×3 (04:30→19:20)
[2023-07-09 05:09] LABS: BASOPHILS % (AUTO) 0.2 %; EOSINOPHILS # (AUTO) 0.7 10^3/uL (0.0-0.7); EOSINOPHILS % (AUTO) 5.8 %; HCT - HEMATOCRIT 27.1 % (42.0-52.0); HGB - HEMOGLOBIN 8.8 g/dL (14.0-18.0); LYMPHOCYTES # (AUTO) 2.2 10^3/uL (1.5-3.5); LYMPHOCYTES % (AUTO) 18.2 %; MEAN CORPUSCULAR HEMOGLOBIN 30.7 pg (27.0-31.0); MEAN CORPUSCULAR HGB CONC 32.5 g/dL (32.0-36.0); MEAN CORPUSCULAR VOLUME 94.4 fL (80.0-94.0); MEAN PLATELET VOLUME 9.8 fL (7.4-11.4); MONOCYTES # (AUTO) 1.4 10^3/uL (0.0-1.0); MONOCYTES % (AUTO) 11.5 %; NEUTROPHILS # (AUTO) 7.8 10^3/uL (1.5-6.6); NEUTROPHILS % (AUTO) 63.7 %; PLT - PLATELET COUNT 134 10^3/uL (130-450); RED BLOOD COUNT 2.87 10^6/uL (4.70-6.10); RED CELL DISTRIBUTION WIDTH 14.5 % (12.0-15.0); WHITE BLOOD COUNT 12.2 x10^3/uL (4.8-10.8)
[2023-07-09] MEDS: INSULIN LISPRO 300 UNIT/3 ML PEN SUBQ SCH ×4 (08:10→20:48)
[2023-07-09] MEDS: CALCIUM CARBONATE CHEW 500 MG TABLET PO SCH (10:29)
[2023-07-09] MEDS: APIXABAN 5 MG TABLET PO SCH ×2 (10:29→20:47)
[2023-07-09] MEDS: SENNA 8.6 MG TABLET PO SCH (10:29)
[2023-07-09] MEDS: CHOLECALCIFEROL 25 MCG TABLET PO SCH (10:29)
[2023-07-09] MEDS: LOSARTAN 50 MG TABLET PO SCH (10:30)
[2023-07-09] MEDS: polyethylene glycoL 3350 17 GM PACKET PO SCH (10:33)
--- NOTE | 2023-07-09 10:55 | PROVIDER PROGRESS NOTE ---
Subjective - Prog Note Date Prog Note Date: 07/09/23 Prog Note Time: 10:52 - Subjective Pt reports feeling: Improved Subjective: S: Still with some spasms in left proximal thigh with hip motion. Pt assisting with ambulation O: Dressing intact. Good hip motion with some local pain about incision site. Moves toes well. N/V ok distally A: Satis post op P: Advance PT as tolerated. To SNF when available. Walker ambualte - WBAT on left. Follow up in Ortho clinic in 2 weeks for XR and stales out with Dr. Helms or ortho PA. Objective - Vital Signs/Intake & Output Vital Signs: Vital Signs x48h Temp Pulse Resp BP Pulse Ox O2 Flow Rate 07/09/23 10:35 128/75 07/09/23 07:36 36.7 C 104 H 18 143/70 H 94 1 07/09/23 07:27 2 Intake & Output: Intake & Output 07/06/23 07/07/23 07/08/23 07/09/23 23:59 23:59 23:59 23:59 Intake Total 593 812 7748 480 Output Total 799 561 6937 476 Balance 95 -50 2203 4 - Lab Results Fish Bones: 07/09/23 04:56 07/08/23 05:08 Other Labs: Lab Results x24hrs 07/09/23 07/08/23 Range/Units 04:56 05:08 WBC 12.2 H (4.8-10.8) x10^3/uL RBC 2.87 L (4.70-6.10) 10^6/uL Hgb 8.8 L (14.0-18.0) g/dL Hct 27.1 L (42.0-52.0) % MCV 94.4 H (80.0-94.0) fL MCH 30.7 (27.0-31.0) pg MCHC 32.5 (32.0-36.0) g/dL RDW 14.5 (12.0-15.0) % Plt Count 134 (130-450) 10^3/uL MPV 9.8 (7.4-11.4) fL Neut # (Auto) 7.8 H (1.5-6.6) 10^3/uL Lymph # (Auto) 2.2 (1.5-3.5) 10^3/uL [place] # (Auto) 1.4 H (0.0-1.0) 10^3/uL Eos # (Auto) 0.7 (0.0-0.7) 10^3/uL Baso # (Auto) 0.0 (0.0-0.1) 10^3/uL Absolute Nucleated RBC 0.00 x10^3/uL Nucleated RBC % 0.0 /100WBC Estimat Average Glucose 146 H (70-100) mg/dL Hemoglobin A1c % 6.7 H (4.27-6.07) %
--- NOTE | 2023-07-09 14:30 | XRAY Report ---
PROCEDURE: OR C-Arm Procedure INDICATIONS: Hip nailing - left FLUORO TIME: 0.15 TECHNIQUE: Multiple intraoperative images were acquired. COMPARISON: Hip x-ray 07/24/2023 FINDINGS: Multiple intraoperative images were acquired during left hip fixation. Visualized hardware appears in tact. There is relatively good anatomic alignment. IMPRESSION: Intraoperative hip fixation. Reviewed by: Shabnam Dorsey MD on 07/09/2023 2:28 PM PST Approved by: Shabnam Dorsey MD on 07/09/2023 2:28 PM [facility] Station ID: [id number]
--- NOTE | 2023-07-09 21:45 | PROVIDER PROGRESS NOTE ---
Assessment/Plan - Problem List (1) Intertrochanteric fracture of left femur Assessment/Plan: Assessment/Plan: Hold Apixaban Orthopedic Consult [place] as needed for pain control (2) Atrial fibrillation Assessment/Plan: Stable. Continue apixaban Add metoprolol as tolerate for rate control (3) Hypertension Assessment/Plan: Continue Losartan (4) Diabetes mellitus Assessment/Plan: Sliding scale insulin (5) Anemia Assessment/Plan: Most likely dilutional. Continue to follow Hemoglobin and hematoctrit - Current Meds Current Meds: Current Medications Generic Name Dose Route Start Last Admin Trade Name Freq PRN Reason Stop Dose Admin Acetaminophen 650 - 975 mg 07/07/23 15:22 07/08/23 16:59 Acetaminophen 325 Mg Tablet PO 975 mg Q4HR PRN Administration PAIN Hydrocodone Bitart/Acetaminophen 1 tab 07/06/23 19:45 07/09/23 19:20 Hydrocod/Acetam 5/325 Mg Tablet PO 1 tab Q4HR PRN Administration Moderate Pain (Level 4-6) Apixaban 5 mg 07/07/23 21:00 07/09/23 20:47 Apixaban 5 Mg Tablet PO 5 mg BID JOMAR Administration Calcium Carbonate/Glycine 500 mg 07/08/23 17:00 07/09/23 10:29 Calcium Carbonate Chew 500 Mg Tablet PO 500 mg DAILY JOMAR Administration Cholecalciferol 50 mcg 07/08/23 17:00 07/09/23 10:29 Cholecalciferol 25 Mcg Tablet PO 50 mcg DAILY JOMAR Administration Docusate Sodium 100 mg 07/07/23 15:22 07/08/23 06:29 Docusate Sodium 100 Mg Capsule PO 100 mg BID PRN Administration Constipation Insulin Human Lispro 2 - 10 unit 07/09/23 12:00 07/09/23 20:48 Insulin Lispro 300 Unit/3 Ml Pen SUBQ 6 unit 0800,1200,1700,2100 JOMAR Administration Protocol Losartan Potassium 50 mg 07/06/23 21:00 07/09/23 10:30 Losartan 50 Mg Tablet PO 50 mg DAILY JOMAR Administration Polyethylene Glycol 17 gm 07/09/23 09:00 07/09/23 10:33 Polyethylene Glycol 3350 17 Gm Packet PO 17 gm DAILY JOMAR Administration Senna 8.6 - 17.2 mg 07/09/23 09:00 07/09/23 10:29 Senna 8.6 Mg Tablet PO 8.6 mg DAILY JOMAR Administration Sodium Chloride 10 ml 07/06/23 17:00 07/09/23 17:10 Sodium Chloride Flush 0.9% 10 Ml Syringe IVP 10 ml 0100,0900,1700 JOMAR Administration - Lab Result Fish Bone Diagrams: 07/09/23 04:56 07/08/23 05:08 - Additional Planning My Orders: My Active Orders 07/09/23 09:00 Senna [Senokot] 8.6 - 17.2 mg PO DAILY polyethylene glycoL 3350 [Miralax] 17 gm PO DAILY 07/09/23 12:00 Insulin Lispro [Humalog Kwikpen U-100] 2 - 10 unit SUBQ 0800,1200,1700,2100 Subjective - Subjective Patient Reports: Other (Alert. Denies shortness of breath, chest pain, nausea and vomiting. No other complaints at this time.) Objective Vital Signs: Vital Signs - 24 hr 07/09/23 07/09/23 07/09/23 00:14 00:27 07:27 Temperature 37.0 C Heart Rate [ 107 H Brachial] Heart Rate [ Sitting] Heart Rate [ Supine] Respiratory 20 Rate Blood Pressure 169/69 H [Right Brachial artery] Blood Pressure [Sitting] Blood Pressure [Supine] O2 Saturation 92 92 If not protocol 2 2 : Oxygen Flow, liters/minute 07/09/23 07/09/23 07/09/23 07:36 10:35 10:45 Temperature 36.7 C Heart Rate [ 104 H Brachial] Heart Rate [ 130 H Sitting] Heart Rate [ 119 H Supine] Respiratory 18 Rate Blood Pressure 143/70 H 128/75 [Right Brachial artery] Blood Pressure 143/68 H [Sitting] Blood Pressure 143/72 H [Supine] O2 Saturation 94 If not protocol 1 : Oxygen Flow, liters/minute 07/09/23 07/09/23 07/09/23 10:50 11:25 15:54 Temperature 36.6 C 37.1 C Heart Rate [ 119 H 111 H Brachial] Heart Rate [ 130 H Sitting] Heart Rate [ 119 H Supine] Respiratory 20 22 Rate Blood Pressure 143/72 H 146/83 H [Right Brachial artery] Blood Pressure 143/68 H [Sitting] Blood Pressure 143/72 H [Supine] O2 Saturation 95 93 If not protocol 1 1 : Oxygen Flow, liters/minute Oxygen O2 Source [With Activity] Room air O2 Source Nasal cannula Oxygen Flow Rate 2 I&O (Last 24 Hrs): Intake and Output Totals x24h 07/07/23 07/08/23 07/09/23 23:59 23:59 23:59 Intake Total 300 3903 1080 Output Total 350 1700 701 Balance -50 2203 379 General: Alert, Oriented x3, Cooperative, No acute distress HEENT: Atraumatic, PERRLA Neck: Supple, No JVD, No thyromegaly Lymphatic: no adenopathy Neuro: Alert, Non Focal Cardiovascular: Regular rate, Normal S1, Normal S2 Respiratory: Chest non-tender, No respiratory distress, Other (No wheezing no crackles.) Abdomen: Normal bowel sounds, Soft, No tenderness Extremities: No clubbing, No cyanosis, No edema Skin: No rashes - Results Results: Laboratory Results WBC 12.2 x10^3/uL (4.8-10.8) H 07/09/23 04:56 RBC 2.87 10^6/uL (4.70-6.10) L 07/09/23 04:56 Hgb 8.8 g/dL (14.0-18.0) L 07/09/23 04:56 Hct 27.1 % (42.0-52.0) L 07/09/23 04:56 MCV 94.4 fL (80.0-94.0) H 07/09/23 04:56 MCH 30.7 pg (27.0-31.0) 07/09/23 04:56 MCHC 32.5 g/dL (32.0-36.0) 07/09/23 04:56 RDW 14.5 % (12.0-15.0) 07/09/23 04:56 Plt Count 134 10^3/uL (130-450) 07/09/23 04:56 MPV 9.8 fL (7.4-11.4) 07/09/23 04:56 Neut # (Auto) 7.8 10^3/uL (1.5-6.6) H 07/09/23 04:56 Lymph # (Auto) 2.2 10^3/uL (1.5-3.5) 07/09/23 04:56 [place] # (Auto) 1.4 10^3/uL (0.0-1.0) H 07/09/23 04:56 Eos # (Auto) 0.7 10^3/uL (0.0-0.7) 07/09/23 04:56 Baso # (Auto) 0.0 10^3/uL (0.0-0.1) 07/09/23 04:56 Absolute Nucleated RBC 0.00 x10^3/uL 07/09/23 04:56 Nucleated RBC % 0.0 /100WBC 07/09/23 04:56 PT 16.6 secs (9.9-12.6) H 07/06/23 12:47 INR 1.5 (0.8-1.2) H 07/06/23 12:47 APTT 32.3 secs (24.9-33.3) 07/06/23 12:47 Sodium 134 mmol/L (135-145) L 07/08/23 05:08 Potassium 5.1 mmol/L (3.5-4.5) H 07/08/23 05:08 Chloride 102 mmol/L (101-111) 07/08/23 05:08 Carbon Dioxide 26 mmol/L (21-32) 07/08/23 05:08 Anion Gap 6.0 (6-13) 07/08/23 05:08 BUN 26 mg/dL (6-20) H 07/08/23 05:08 Creatinine 1.2 mg/dL (0.6-1.3) 07/08/23 05:08 Estimated GFR (MDRD) 57 (>89) L 07/08/23 05:08 Glucose 200 mg/dL (74-104) H 07/08/23 05:08 Estimat Average Glucose 146 mg/dL (70-100) H 07/08/23 05:08 Hemoglobin A1c % 6.7 % (4.27-6.07) H 07/08/23 05:08 Calcium 8.4 mg/dL (8.5-10.3) L 07/08/23 05:08 Magnesium 1.9 mg/dL (1.7-2.3) 07/06/23 12:47 Total Bilirubin 1.4 mg/dL (0.2-1.0) H 07/08/23 05:08 AST 12 IU/L (10-42) 07/08/23 05:08 ALT 7 IU/L (10-60) L 07/08/23 05:08 Alkaline Phosphatase 59 IU/L (42-121) 07/08/23 05:08 B-Natriuretic Peptide 79 pg/mL (5-100) 07/06/23 12:47 Total Protein 5.7 g/dL (6.4-8.9) L 07/08/23 05:08 Albumin 3.1 g/dL (3.2-5.5) L 07/08/23 05:08 Globulin 2.6 g/dL (2.1-4.2) 07/08/23 05:08 Albumin/Globulin Ratio 1.2 (1.0-2.2) 07/08/23 05:08 Lipase < 10 U/L (11-82) L 07/06/23 12:47 Blood Type O POSITIVE 07/06/23 16:14 Blood Type Recheck O POSITIVE 07/06/23 16:17 Antibody Screen NEGATIVE 07/06/23 16:14 - Procedures Procedures: Procedures ARTHROPLASTY OF MCP & INTERPHALANG JT W/O IMPLANT (03/19/15) REPOSITION RIGHT HUMERAL SHAFT WITH INT FIX, OPEN APPROACH (10/03/18) ABX Reporting Has patient been on IV antibiotics over the past 48 hours?: No Current Medications - Current Medications Current Medications: Active Medications Acetaminophen (Acetaminophen 325 Mg Tablet) 650 - 975 mg PO Q4HR PRN PRN Reason: PAIN Last Admin: 07/08/23 16:59 Dose: 975 mg Hydrocodone Bitart/Acetaminophen (Hydrocod/Acetam 5/325 Mg Tablet) 1 tab PO Q4HR PRN PRN Reason: Moderate Pain (Level 4-6) Last Admin: 07/09/23 19:20 Dose: 1 tab Apixaban (Apixaban 5 Mg Tablet) 5 mg PO BID [facility] Last Admin: 07/09/23 20:47 Dose: 5 mg Calcium Carbonate/Glycine (Calcium Carbonate Chew 500 Mg Tablet) 500 mg PO DAILY [facility] Last Admin: 07/09/23 10:29 Dose: 500 mg Cholecalciferol (Cholecalciferol 25 Mcg Tablet) 50 mcg PO DAILY [facility] Last Admin: 07/09/23 10:29 Dose: 50 mcg Docusate Sodium (Docusate Sodium 100 Mg Capsule) 100 mg PO BID PRN PRN Reason: Constipation Last Admin: 07/08/23 06:29 Dose: 100 mg Insulin Human Lispro (Insulin Lispro 300 Unit/3 Ml Pen) 2 - 10 unit SUBQ 0800,1200,1700,2100 [facility]; Protocol Last Admin: 07/09/23 20:48 Dose: 6 unit Losartan Potassium (Losartan 50 Mg Tablet) 50 mg PO DAILY [facility] Last Admin: 07/09/23 10:30 Dose: 50 mg Ondansetron HCl (Ondansetron 4 Mg/2 Ml Vial) 4 mg IVP Q6HR PRN PRN Reason: Nausea / Vomiting Polyethylene Glycol (Polyethylene Glycol 3350 17 Gm Packet) 17 gm PO DAILY [facility] Last Admin: 07/09/23 10:33 Dose: 17 gm Senna (Senna 8.6 Mg Tablet) 8.6 - 17.2 mg PO DAILY [facility] Last Admin: 07/09/23 10:29 Dose: 8.6 mg Sodium Chloride (Sodium Chloride Flush 0.9% 10 Ml Syringe) 10 ml IVP PRN PRN PRN Reason: NEEDED PER PROVIDER ORDERS Sodium Chloride (Sodium Chloride Flush 0.9% 10 Ml Syringe) 10 ml IVP 0100,0900,1700 [facility] Last Admin: 07/09/23 17:10 Dose: 10 ml Furosemide 20 mg PO MOWEFR 03/13/13 Gabapentin [Neurontin] 300 mg PO TID 03/13/13 Levothyroxine [Synthroid] 25 mcg PO DAILY 03/13/13 Metoprolol Succinate [Toprol Xl] 100 mg PO DAILY 03/13/13 Omeprazole [Prilosec] 20 mg PO BIDWM 03/13/13 Potassium Chloride [Micro-K] 10 meq PO MOWEFR 03/13/13 Apixaban [Eliquis] 5 mg PO BID 07/04/16 Insulin Regular Human [NovoLIN R] 12 - 18 unit SUBQ BIDWM 03/24/19 Insulin Glargine,Hum.rec.anlog [Basaglar Kwikpen U-100] 10 unit SUBQ QPM 02/07/21 Rosuvastatin Calcium [Crestor] 2.5 mg PO QPM 02/07/21 Losartan [Cozaar] 100 mg PO DAILY 08/06/21 Tamsulosin [Flomax] 0.4 mg PO DAILY 08/06/21 Trospium Chloride 20 mg PO QPM 08/06/21 Albuterol Sulf [Ventolin Hfa Inhaler] 1 - 2 puffs INH Q4HR PRN 07/06/23 Finasteride [Proscar] 5 mg PO DAILY 07/06/23
[2023-07-10] MEDS: SODIUM CHLORIDE FLUSH 0.9% 10 ML SYRINGE IVP SCH ×3 (00:01→17:04)
[2023-07-10] MEDS: ONDANSETRON 4 MG/2 ML VIAL IVP PRN ×2 (00:05→08:29)
[2023-07-10 06:12] LABS: BASOPHILS % (AUTO) 0.3 %; EOSINOPHILS # (AUTO) 0.7 10^3/uL (0.0-0.7); EOSINOPHILS % (AUTO) 5.1 %; HCT - HEMATOCRIT 24.6 % (42.0-52.0); HGB - HEMOGLOBIN 8.1 g/dL (14.0-18.0); LYMPHOCYTES # (AUTO) 2.1 10^3/uL (1.5-3.5); LYMPHOCYTES % (AUTO) 16.6 %; MEAN CORPUSCULAR HGB CONC 32.9 g/dL (32.0-36.0); MEAN CORPUSCULAR VOLUME 94.3 fL (80.0-94.0); MEAN PLATELET VOLUME 9.6 fL (7.4-11.4); MONOCYTES # (AUTO) 1.6 10^3/uL (0.0-1.0); MONOCYTES % (AUTO) 12.4 %; NEUTROPHILS # (AUTO) 8.4 10^3/uL (1.5-6.6); PLT - PLATELET COUNT 172 10^3/uL (130-450); RED BLOOD COUNT 2.61 10^6/uL (4.70-6.10); RED CELL DISTRIBUTION WIDTH 14.5 % (12.0-15.0); WHITE BLOOD COUNT 12.9 x10^3/uL (4.8-10.8)
[2023-07-10] MEDS: HYDROcod/ACETAM 5/325 MG TABLET PO PRN ×2 (06:28→13:07)
--- NOTE | 2023-07-10 07:15 | Discharge Plan ---
"Discharge Plan for SNF / [facility] - Discharge Plan And Transition Orders Problem Reviewed?: Yes - SNF / [place] Transition Orders Admit to (Facility): [facility] Discharge Diagnosis: 1. Intertrochanteric fracture of left femur 2. Atrial fibrillation 3. Hypertension 4. Diabetes mellitus 5. Anemia Medicare Certification Statement: I certify that [facility] intermediate care is medically necessary on a continuing basis for any of the conditions for which she/he is receiving care during hospitalization. Notify PCP of admission and forward orders to primary provider for signature. Weight on admission and: Monthly Other Notification Orders: Call PCP immediately if patient develops dyspnea, chest pain/tightness or edema. House Bowel Program: Yes Additional Bowel Program Orders: If no BM after 2 days, nurse may give M.O.M. 30ml PO PRN and/or ducolax Supp 1 MN and/or CAITIE 250mg P.O., and/or senna 1-2 tabs PO. On day 3 nurse may give repeat above order until residents constipation is resolved. Annual Influenza Vaccine (between Mar 05 and October 02): Yes Two-step PPD per [facility] 248-235 or approved exception documents: Yes Orthopedic Orders: Recommend obtaining hemoglobin and hematocrit in 1 week. Medication Orders: PLEASE REFER TO THE DISCHARGE MEDICATION LIST. Insulin Orders?: Yes - Diet Type: No added sugar Texture: Regular Liquids: Thin May have monthly special meal: Yes (Carbohydrate controlled) - Therapies | Activity Therapy: Evaluation | Treat if indicated: PT, OT Rehabilitation Potential: Return to independent living <Leonidas Huffman - Last Filed: 07/12/23 08:03> - Discharge Plan And Transition Orders Problem Reviewed?: Yes - SNF / [facility] Transition Orders Admit to (Facility): [facility] Under the care of (Name): Dr Leonidas Madsen Medicare Certification Statement: I certify that [facility] intermediate care is medically necessary on a continuing basis for any of the conditions for which she/he is receiving care during hospitalization. Notify PCP of admission and forward orders to primary provider for signature. Weight on admission and: Monthly Other Notification Orders: Call PCP immediately if patient develops dyspnea, chest pain/tightness or edema. House Bowel Program: Yes Additional Bowel Program Orders: If no BM after 2 days, nurse may give M.O.M. 30ml PO PRN and/or ducolax Supp 1 MN and/or CAITIE 250mg P.O., and/or senna 1-2 tabs PO. On day 3 nurse may give repeat above order until residents constipation is resolved. Annual Influenza Vaccine (between Mar 05 and October 02): Yes Two-step PPD per [facility] [id number] or approved exception documents: Yes Treatments & Other Orders: Daily PT and OT Medication Orders: PLEASE REFER TO THE DISCHARGE MEDICATION LIST. Insulin Orders?: Yes - Diet Type: Geriatric (Diabetic diet) Texture: Regular Liquids: Thin May have monthly special meal: Yes - Therapies | Activity Therapy: Evaluation | Treat if indicated: PT, OT Rehabilitation Potential: Maximize functional status Activity: Activity as Tolerated Weight Bearing: Full Weight Assistance Devices: Walker Follow Up: See PCP after discharge from SNF. <Lily Donnelly - Last Filed: 07/13/23 12:40> - Discharge Plan And Transition Orders Disposition: [address] [facility] DC/Xfer Condition: Stable Allergies and Adverse Reactions: Allergies Allergy/AdvReac Type Severity Reaction Status Date / Time Iodinated Contrast Media Allergy Hives Verified 07/06/23 12:26 caffeine AdvReac Unknown Verified 07/06/23 12:26 Health Concerns: Shemar Sanders is an 87-year-old man admitted on July 06, 2023 after presenting to the emergency room with complaints of left hip pain. Patient complained of left hip pain after a fall and could not bear weight on his left extremity. X-ray performed in the emergency room revealed a displaced left intertrochanteric hip fracture. Patient was admitted to the hospital. He is chronically anticoagulated with Eliquis for atrial fibrillation and his Eliquis was withheld. He was evaluated by Dr. Wilmer Love of orthopedic surgery and on July 07, 2023 the patient was taken to the operating room and underwent a closed reduction and InterTAN nailing of left hip fracture. Postoperatively, patient has been receiving physical therapy and is now ready for to be transferred to a intermediate facility for rehabilitation. 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 He uses his phone to communicate. Plan of Treatment: Transfer to a intermediate facility for rehabilitation status post hip fracture. Care Goals: Goal is to return to independent functioning. Assessment: (1) Intertrochanteric fracture of left femur Assessment/Plan: Status post closed reduction and InterTAN nailing of left hip fracture. (2) Atrial fibrillation Assessment/Plan: Stable. Continue apixaban Metoprolol for rate control. (3) Hypertension Assessment/Plan: Patient's losartan continue losartan and metoprolol. (4) Diabetes mellitus Assessment/Plan: Continue outpatient regiment for serum glucose control. (5) Anemia Assessment/Plan: Recommend repeating hemoglobin and hematocrit in 1 week. - Medications New Prescriptions: HYDROcod/ACETAM 5/325 [Bernard 5/325] 1 tab PO Q4HR PRN #20 tab PRN Reason: Moderate Pain (Level 4-6) Insulin Orders - SNF Basal | Correction | Custom Orders: Diagnosis: Diabetes Initiate hypo and hyperglycemia protocols for BG <70 and BG >375. May check BG PRN for signs/symptoms of dysglycemia. Frequency of BG checks: [AC/Meal/HS] Basal Insulin: [x] Lantus 100 units / ml inject subq as follows: [10 Units subcutaneously at 2100] [] Other: [Regular Insulin (NOvolin R) 12 Units subcutaneously at breakfast and 18 units subcutaneously at dinner] Correction Insulin: - Select the type of insulin below [Choose: Novolog/Humalog]100 units /ml insulin inject subq per orders indicate below [] LOW DOSE [] MODERATE DOSE [] MODERATE/HIGH DOSE [] HIGH DOSE GB UNITS GB UNITS GB UNITS GB UNITS 61-140 0 UNITS 61-140 0 UNITS 61-140 0 UNITS 61-140 0 UNITS 141-175 1 UNITS 141-175 1 UNITS 141-175 2 UNITS 141-175 3 UNITS 176-225 2 UNITS 176-225 3 UNITS 176-225 4 UNITS 176-225 5 UNITS 226-275 3 UNITS 226-275 5 UNITS 226-275 6 UNITS 226-275 7 UNITS 276-325 4 UNITS 276-325 7 UNITS 276-325 8 UNITS 276-325 9 UNITS 326-375 5 UNITS 326-375 9 UNITS 326-375 10 UNITS 326-375 11 UNITS >375 CONTACT MD >375 CONTACT MD >375 CONTACT MD >375 CONTACT MD Custom Dosing: [Choose: Novolog/Humalog] 100 units/ml Insulin inject subq as follows: GB Units 61-140 [] Units 141-175 [] Units 176-225 [] Units 226-275 [] Units 276-325 []Units 326-375 [] Units >375 Contact MD <Leonidas Huffman - Last Filed: 07/12/23 08:03> Basal | Correction | Custom Orders: Diagnosis: Diabetes Initiate hypo and hyperglycemia protocols for BG <70 and BG >375. May check BG PRN for signs/symptoms of dysglycemia. Frequency of BG checks: [AC/Meal/HS] Basal Insulin: [] Lantus 100 units / ml inject subq as follows: [] [] Other: [] Correction Insulin: - Select the type of insulin below [Choose: Novolog/Humalog]100 units /ml insulin inject subq per orders indic ate below [] LOW DOSE [] MODERATE DOSE [] MODERATE/HIGH DOSE [] HIGH DOSE GB UNITS GB UNITS GB UNITS GB UNITS 61-140 0 UNITS 61-140 0 UNITS 61-140 0 UNITS 61-140 0 UNITS 141-175 1 UNITS 141-175 1 UNITS 141-175 2 UNITS 141-175 3 UNITS 176-225 2 UNITS 176-225 3 UNITS 176-225 4 UNITS 176-225 5 UNITS 226-275 3 UNITS 226-275 5 UNITS 226-275 6 UNITS 226-275 7 UNITS 276-325 4 UNITS 276-325 7 UNITS 276-325 8 UNITS 276-325 9 UNITS 326-375 5 UNITS 326-375 9 UNITS 326-375 10 UNITS 326-375 11 UNITS >375 CONTACT MD >375 CONTACT MD >375 CONTACT MD >375 CONTACT MD Custom Dosing: [Choose: Novolog/Humalog] 100 units/ml Insulin inject subq as follows: GB Units 61-140 [] Units 141-175 [] Units 176-225 [] Units 226-275 [] Units 276-325 []Units 326-375 [] Units >375 Contact <Lily Donnelly - Last Filed: 07/13/23 12:40>"
--- NOTE | 2023-07-10 07:15 | DISCHARGE SUMMARY ---
Discharge Summary - ALLERGIES Allergies/Adverse Reactions: Allergies Allergy/AdvReac Type Severity Reaction Status Date / Time Iodinated Contrast Media Allergy Hives Verified 07/06/23 12:26 caffeine AdvReac Unknown Verified 07/06/23 12:26 - MEDICATIONS Home Medications: Ambulatory Orders Medication Instructions Recorded Confirmed Furosemide 20 mg PO MOWEFR 03/13/13 07/06/23 Gabapentin [Neurontin] 300 mg PO TID 03/13/13 07/06/23 Levothyroxine [Synthroid] 25 mcg PO DAILY 03/13/13 07/06/23 Metoprolol Succinate [Toprol Xl] 100 mg PO DAILY 03/13/13 07/06/23 Omeprazole [Prilosec] 20 mg PO BIDWM 03/13/13 07/06/23 Potassium Chloride [Micro-K] 10 meq PO MOWEFR 03/13/13 07/06/23 Apixaban [Eliquis] 5 mg PO BID 07/04/16 07/06/23 Insulin Regular Human [NovoLIN R] 12 - 18 unit SUBQ BIDWM 03/24/19 07/07/23 Insulin Glargine,Hum.rec.anlog 10 unit SUBQ QPM 02/07/21 07/07/23 [Basaglar Kwikpen U-100] Rosuvastatin Calcium [Crestor] 2.5 mg PO QPM 02/07/21 07/06/23 Losartan [Cozaar] 100 mg PO DAILY 08/06/21 07/06/23 Tamsulosin [Flomax] 0.4 mg PO DAILY 08/06/21 07/06/23 Trospium Chloride 20 mg PO QPM 08/06/21 07/06/23 Albuterol Sulf [Ventolin Hfa 1 - 2 puffs INH Q4HR PRN 07/06/23 07/06/23 Inhaler] Finasteride [Proscar] 5 mg PO DAILY 07/06/23 07/06/23 - LABS Result Diagrams: 07/10/23 05:26 07/08/23 05:08
[2023-07-10] MEDS: polyethylene glycoL 3350 17 GM PACKET PO SCH (08:30)
[2023-07-10] MEDS: LOSARTAN 50 MG TABLET PO SCH (08:30)
[2023-07-10] MEDS: INSULIN LISPRO 300 UNIT/3 ML PEN SUBQ SCH ×4 (08:30→20:40)
[2023-07-10] MEDS: DOCUSATE SODIUM 100 MG CAPSULE PO PRN (08:30)
[2023-07-10] MEDS: APIXABAN 5 MG TABLET PO SCH ×2 (08:30→20:40)
[2023-07-10] MEDS: CALCIUM CARBONATE CHEW 500 MG TABLET PO SCH (08:31)
[2023-07-10] MEDS: CHOLECALCIFEROL 25 MCG TABLET PO SCH (08:31)
[2023-07-10] MEDS: SENNA 8.6 MG TABLET PO SCH (08:31)
[2023-07-10 19:18] LABS: HGB - HEMOGLOBIN 8.2 g/dL (14.0-18.0)
--- NOTE | 2023-07-10 21:14 | PROVIDER PROGRESS NOTE ---
Assessment/Plan - Problem List (1) Intertrochanteric fracture of left femur Assessment/Plan: Restart apixaban [place] as needed for pain control (2) Atrial fibrillation Assessment/Plan: Stable. Continue apixaban Add metoprolol as tolerate for rate control (3) Hypertension Assessment/Plan: Continue Losartan (4) Diabetes mellitus Assessment/Plan: Sliding scale insulin (5) Anemia Assessment/Plan: Most likely dilutional. Continue to follow Hemoglobin and hematoctrit - Current Meds Current Meds: Current Medications Generic Name Dose Route Start Last Admin Trade Name Freq PRN Reason Stop Dose Admin Acetaminophen 650 - 975 mg 07/07/23 15:22 07/08/23 16:59 Acetaminophen 325 Mg Tablet PO 975 mg Q4HR PRN Administration PAIN Hydrocodone Bitart/Acetaminophen 1 tab 07/06/23 19:45 07/10/23 13:07 Hydrocod/Acetam 5/325 Mg Tablet PO 1 tab Q4HR PRN Administration Moderate Pain (Level 4-6) Apixaban 5 mg 07/07/23 21:00 07/10/23 20:40 Apixaban 5 Mg Tablet PO 5 mg BID JOMAR Administration Calcium Carbonate/Glycine 500 mg 07/08/23 17:00 07/10/23 08:31 Calcium Carbonate Chew 500 Mg Tablet PO 500 mg DAILY JOMAR Administration Cholecalciferol 50 mcg 07/08/23 17:00 07/10/23 08:31 Cholecalciferol 25 Mcg Tablet PO 50 mcg DAILY JOMAR Administration Docusate Sodium 100 mg 07/07/23 15:22 07/10/23 08:30 Docusate Sodium 100 Mg Capsule PO 100 mg BID PRN Administration Constipation Insulin Human Lispro 3 - 11 unit 07/10/23 12:00 07/10/23 20:40 Insulin Lispro 300 Unit/3 Ml Pen SUBQ 9 unit 0800,1200,1700,2100 JOMAR Administration Protocol Losartan Potassium 50 mg 07/06/23 21:00 07/10/23 08:30 Losartan 50 Mg Tablet PO 50 mg DAILY JOMAR Administration Ondansetron HCl 4 mg 07/07/23 15:22 07/10/23 08:29 Ondansetron 4 Mg/2 Ml Vial IVP 4 mg Q6HR PRN Administration Nausea / Vomiting Polyethylene Glycol 17 gm 07/09/23 09:00 07/10/23 08:30 Polyethylene Glycol 3350 17 Gm Packet PO 17 gm DAILY JOMAR Administration Senna 8.6 - 17.2 mg 07/09/23 09:00 07/10/23 08:31 Senna 8.6 Mg Tablet PO 8.6 mg DAILY JOMAR Administration Sodium Chloride 10 ml 07/06/23 17:00 07/10/23 17:04 Sodium Chloride Flush 0.9% 10 Ml Syringe IVP 10 ml 0100,0900,1700 JOMAR Administration - Lab Result Fish Bone Diagrams: 07/10/23 19:00 07/08/23 05:08 - Additional Planning My Orders: My Active Orders 07/10/23 12:00 Insulin Lispro [Humalog Kwikpen U-100] 3 - 11 unit SUBQ 0800,1200,1700,2100 Subjective - Subjective Patient Reports: Other (Alert. Patient has no complaints at this time.) Objective Vital Signs: Vital Signs - 24 hr 07/09/23 07/10/23 07/10/23 22:00 00:02 07:00 Temperature 37.1 C Heart Rate [ 106 H Brachial] Respiratory 18 Rate Blood Pressure 160/66 H [Right Brachial artery] O2 Saturation 95 If not protocol 1 1 1 : Oxygen Flow, liters/minute 07/10/23 07/10/23 07:43 15:56 Temperature 36.1 C L 36.5 C Heart Rate [ 116 H 112 H Brachial] Respiratory 18 20 Rate Blood Pressure 153/79 H 139/78 H [Right Brachial artery] O2 Saturation 91 L 97 If not protocol 1 2.5 : Oxygen Flow, liters/minute Oxygen O2 Source [With Activity] Room air O2 Source Nasal cannula Oxygen Flow Rate 2 I&O (Last 24 Hrs): Intake and Output Totals x24h 07/08/23 07/09/23 07/10/23 23:59 23:59 23:59 Intake Total 3903 1580 420 Output Total 1700 901 500 Balance 2203 679 -80 General: Alert, Oriented x3, No acute distress HEENT: Atraumatic, PERRLA, EOMI Neck: Supple, No JVD, No thyromegaly Lymphatic: no adenopathy Neuro: Alert, Non Focal Cardiovascular: Regular rate, Normal S1, Normal S2 Respiratory: Chest non-tender, No respiratory distress, Breath sounds nml Abdomen: Normal bowel sounds, Soft, No tenderness Extremities: No clubbing, No cyanosis, No edema Skin: No rashes - Results Results: Laboratory Results WBC 12.9 x10^3/uL (4.8-10.8) H 07/10/23 05:26 RBC 2.61 10^6/uL (4.70-6.10) L 07/10/23 05:26 Hgb 8.2 g/dL (14.0-18.0) L 07/10/23 19:00 Hct 26.0 % (42.0-52.0) L 07/10/23 19:00 MCV 94.3 fL (80.0-94.0) H 07/10/23 05:26 MCH 31.0 pg (27.0-31.0) 07/10/23 05:26 MCHC 32.9 g/dL (32.0-36.0) 07/10/23 05:26 RDW 14.5 % (12.0-15.0) 07/10/23 05:26 Plt Count 172 10^3/uL (130-450) 07/10/23 05:26 MPV 9.6 fL (7.4-11.4) 07/10/23 05:26 Neut # (Auto) 8.4 10^3/uL (1.5-6.6) H 07/10/23 05:26 Lymph # (Auto) 2.1 10^3/uL (1.5-3.5) 07/10/23 05:26 [place] # (Auto) 1.6 10^3/uL (0.0-1.0) H 07/10/23 05:26 Eos # (Auto) 0.7 10^3/uL (0.0-0.7) 07/10/23 05:26 Baso # (Auto) 0.0 10^3/uL (0.0-0.1) 07/10/23 05:26 Absolute Nucleated RBC 0.00 x10^3/uL 07/10/23 05:26 Nucleated RBC % 0.0 /100WBC 07/10/23 05:26 PT 16.6 secs (9.9-12.6) H 07/06/23 12:47 INR 1.5 (0.8-1.2) H 07/06/23 12:47 APTT 32.3 secs (24.9-33.3) 07/06/23 12:47 Sodium 134 mmol/L (135-145) L 07/08/23 05:08 Potassium 5.1 mmol/L (3.5-4.5) H 07/08/23 05:08 Chloride 102 mmol/L (101-111) 07/08/23 05:08 Carbon Dioxide 26 mmol/L (21-32) 07/08/23 05:08 Anion Gap 6.0 (6-13) 07/08/23 05:08 BUN 26 mg/dL (6-20) H 07/08/23 05:08 Creatinine 1.2 mg/dL (0.6-1.3) 07/08/23 05:08 Estimated GFR (MDRD) 57 (>89) L 07/08/23 05:08 Glucose 200 mg/dL (74-104) H 07/08/23 05:08 Estimat Average Glucose 146 mg/dL (70-100) H 07/08/23 05:08 Hemoglobin A1c % 6.7 % (4.27-6.07) H 07/08/23 05:08 Calcium 8.4 mg/dL (8.5-10.3) L 07/08/23 05:08 Magnesium 1.9 mg/dL (1.7-2.3) 07/06/23 12:47 Total Bilirubin 1.4 mg/dL (0.2-1.0) H 07/08/23 05:08 AST 12 IU/L (10-42) 07/08/23 05:08 ALT 7 IU/L (10-60) L 07/08/23 05:08 Alkaline Phosphatase 59 IU/L (42-121) 07/08/23 05:08 B-Natriuretic Peptide 79 pg/mL (5-100) 07/06/23 12:47 Total Protein 5.7 g/dL (6.4-8.9) L 07/08/23 05:08 Albumin 3.1 g/dL (3.2-5.5) L 07/08/23 05:08 Globulin 2.6 g/dL (2.1-4.2) 07/08/23 05:08 Albumin/Globulin Ratio 1.2 (1.0-2.2) 07/08/23 05:08 Lipase < 10 U/L (11-82) L 07/06/23 12:47 Blood Type O POSITIVE 07/06/23 16:14 Blood Type Recheck O POSITIVE 07/06/23 16:17 Antibody Screen NEGATIVE 07/06/23 16:14 - Procedures Procedures: Procedures ARTHROPLASTY OF MCP & INTERPHALANG JT W/O IMPLANT (03/19/15) REPOSITION RIGHT HUMERAL SHAFT WITH INT FIX, OPEN APPROACH (10/03/18) Current Medications - Current Medications Current Medications: Active Medications Acetaminophen (Acetaminophen 325 Mg Tablet) 650 - 975 mg PO Q4HR PRN PRN Reason: PAIN Last Admin: 07/08/23 16:59 Dose: 975 mg Hydrocodone Bitart/Acetaminophen (Hydrocod/Acetam 5/325 Mg Tablet) 1 tab PO Q4HR PRN PRN Reason: Moderate Pain (Level 4-6) Last Admin: 07/10/23 13:07 Dose: 1 tab Apixaban (Apixaban 5 Mg Tablet) 5 mg PO BID [facility] Last Admin: 07/10/23 20:40 Dose: 5 mg Calcium Carbonate/Glycine (Calcium Carbonate Chew 500 Mg Tablet) 500 mg PO DAILY [facility] Last Admin: 07/10/23 08:31 Dose: 500 mg Cholecalciferol (Cholecalciferol 25 Mcg Tablet) 50 mcg PO DAILY [facility] Last Admin: 07/10/23 08:31 Dose: 50 mcg Docusate Sodium (Docusate Sodium 100 Mg Capsule) 100 mg PO BID PRN PRN Reason: Constipation Last Admin: 07/10/23 08:30 Dose: 100 mg Insulin Human Lispro (Insulin Lispro 300 Unit/3 Ml Pen) 3 - 11 unit SUBQ 0800,1200,1700,2100 [facility]; Protocol Last Admin: 07/10/23 20:40 Dose: 9 unit Losartan Potassium (Losartan 50 Mg Tablet) 50 mg PO DAILY [facility] Last Admin: 07/10/23 08:30 Dose: 50 mg Ondansetron HCl (Ondansetron 4 Mg/2 Ml Vial) 4 mg IVP Q6HR PRN PRN Reason: Nausea / Vomiting Last Admin: 07/10/23 08:29 Dose: 4 mg Polyethylene Glycol (Polyethylene Glycol 3350 17 Gm Packet) 17 gm PO DAILY [facility] Last Admin: 07/10/23 08:30 Dose: 17 gm Senna (Senna 8.6 Mg Tablet) 8.6 - 17.2 mg PO DAILY [facility] Last Admin: 07/10/23 08:31 Dose: 8.6 mg Sodium Chloride (Sodium Chloride Flush 0.9% 10 Ml Syringe) 10 ml IVP PRN PRN PRN Reason: NEEDED PER PROVIDER ORDERS Sodium Chloride (Sodium Chloride Flush 0.9% 10 Ml Syringe) 10 ml IVP 0100,0900,1700 [facility] Last Admin: 07/10/23 17:04 Dose: 10 ml Furosemide 20 mg PO MOWEFR 03/13/13 Gabapentin [Neurontin] 300 mg PO TID 03/13/13 Levothyroxine [Synthroid] 25 mcg PO DAILY 03/13/13 Metoprolol Succinate [Toprol Xl] 100 mg PO DAILY 03/13/13 Omeprazole [Prilosec] 20 mg PO BIDWM 03/13/13 Potassium Chloride [Micro-K] 10 meq PO MOWEFR 03/13/13 Apixaban [Eliquis] 5 mg PO BID 07/04/16 Insulin Regular Human [NovoLIN R] 12 - 18 unit SUBQ BIDWM 03/24/19 Insulin Glargine,Hum.rec.anlog [Basaglar Kwikpen U-100] 10 unit SUBQ QPM 02/07/21 Rosuvastatin Calcium [Crestor] 2.5 mg PO QPM 02/07/21 Losartan [Cozaar] 100 mg PO DAILY 08/06/21 Tamsulosin [Flomax] 0.4 mg PO DAILY 08/06/21 Trospium Chloride 20 mg PO QPM 08/06/21 Albuterol Sulf [Ventolin Hfa Inhaler] 1 - 2 puffs INH Q4HR PRN 07/06/23 Finasteride [Proscar] 5 mg PO DAILY 07/06/23
[2023-07-11] MEDS: SODIUM CHLORIDE FLUSH 0.9% 10 ML SYRINGE IVP SCH ×3 (00:09→16:56)
[2023-07-11 05:54] LABS: BASOPHILS # (AUTO) 0.1 10^3/uL (0.0-0.1); BASOPHILS % (AUTO) 0.3 %; EOSINOPHILS # (AUTO) 0.2 10^3/uL (0.0-0.7); EOSINOPHILS % (AUTO) 1.7 %; HCT - HEMATOCRIT 25.1 % (42.0-52.0); HGB - HEMOGLOBIN 8.2 g/dL (14.0-18.0); LYMPHOCYTES # (AUTO) 2.4 10^3/uL (1.5-3.5); LYMPHOCYTES % (AUTO) 16.4 %; MEAN CORPUSCULAR HEMOGLOBIN 31.7 pg (27.0-31.0); MEAN CORPUSCULAR HGB CONC 32.7 g/dL (32.0-36.0); MEAN CORPUSCULAR VOLUME 96.9 fL (80.0-94.0); MEAN PLATELET VOLUME 9.3 fL (7.4-11.4); MONOCYTES # (AUTO) 1.9 10^3/uL (0.0-1.0); MONOCYTES % (AUTO) 12.9 %; NEUTROPHILS # (AUTO) 9.7 10^3/uL (1.5-6.6); NEUTROPHILS % (AUTO) 67.8 %; PLT - PLATELET COUNT 190 10^3/uL (130-450); RED BLOOD COUNT 2.59 10^6/uL (4.70-6.10); RED CELL DISTRIBUTION WIDTH 14.5 % (12.0-15.0); WHITE BLOOD COUNT 14.4 x10^3/uL (4.8-10.8)
[2023-07-11] MEDS ORDERED: BISACODYL 10 MG SUPP PR ONE (06:00)
[2023-07-11 06:13] LABS: CALCIUM 8.3 mg/dL (8.5-10.3); CREATININE 1.1 mg/dL (0.6-1.3); POTASSIUM 4.8 mmol/L (3.5-4.5)
[2023-07-11] MEDS: HYDROcod/ACETAM 5/325 MG TABLET PO PRN ×2 (09:20→20:48)
[2023-07-11] MEDS: LOSARTAN 50 MG TABLET PO SCH (09:20)
[2023-07-11] MEDS: polyethylene glycoL 3350 17 GM PACKET PO SCH (10:00)
[2023-07-11] MEDS: INSULIN LISPRO 300 UNIT/3 ML PEN SUBQ SCH ×4 (10:01→20:36)
[2023-07-11] MEDS: APIXABAN 5 MG TABLET PO SCH ×2 (10:01→20:39)
[2023-07-11] MEDS: CALCIUM CARBONATE CHEW 500 MG TABLET PO SCH (10:01)
[2023-07-11] MEDS: CHOLECALCIFEROL 25 MCG TABLET PO SCH (10:01)
[2023-07-11] MEDS: SENNA 8.6 MG TABLET PO SCH ×3 (10:01→20:40)
[2023-07-11] MEDS: INSULIN GLARGINE-YFGN 300 UNIT/3 ML PEN SUBQ SCH (20:37)
--- NOTE | 2023-07-11 20:37 | PROVIDER PROGRESS NOTE ---
Assessment/Plan - Problem List (1) Intertrochanteric fracture of left femur Assessment/Plan: Restart apixaban Gem as needed for pain control (2) Atrial fibrillation Assessment/Plan: Stable. Continue apixaban Add metoprolol as tolerated for rate control (3) Hypertension Assessment/Plan: Continue Losartan (4) Diabetes mellitus Assessment/Plan: Sliding scale insulin (5) Anemia Assessment/Plan: Most likely dilutional. Continue to follow Hemoglobin and hematoctrit - Current Meds Current Meds: Current Medications Generic Name Dose Route Start Last Admin Trade Name Freq PRN Reason Stop Dose Admin Acetaminophen 650 - 975 mg 07/07/23 15:22 07/08/23 16:59 Acetaminophen 325 Mg Tablet PO 975 mg Q4HR PRN Administration PAIN Hydrocodone Bitart/Acetaminophen 1 tab 07/06/23 19:45 07/11/23 09:20 Hydrocod/Acetam 5/325 Mg Tablet PO 1 tab Q4HR PRN Administration Moderate Pain (Level 4-6) Apixaban 5 mg 07/07/23 21:00 07/11/23 10:01 Apixaban 5 Mg Tablet PO 5 mg BID JOMAR Administration Calcium Carbonate/Glycine 500 mg 07/08/23 17:00 07/11/23 10:01 Calcium Carbonate Chew 500 Mg Tablet PO 500 mg DAILY JOMAR Administration Cholecalciferol 50 mcg 07/08/23 17:00 07/11/23 10:01 Cholecalciferol 25 Mcg Tablet PO 50 mcg DAILY JOMAR Administration Docusate Sodium 100 mg 07/07/23 15:22 07/10/23 08:30 Docusate Sodium 100 Mg Capsule PO 100 mg BID PRN Administration Constipation Insulin Human Lispro 3 - 11 unit 07/10/23 12:00 07/11/23 16:56 Insulin Lispro 300 Unit/3 Ml Pen SUBQ 9 unit 0800,1200,1700,2100 JOMAR Administration Protocol Losartan Potassium 50 mg 07/06/23 21:00 07/11/23 09:20 Losartan 50 Mg Tablet PO 50 mg DAILY JOMAR Administration Ondansetron HCl 4 mg 07/07/23 15:22 07/10/23 08:29 Ondansetron 4 Mg/2 Ml Vial IVP 4 mg Q6HR PRN Administration Nausea / Vomiting Polyethylene Glycol 17 gm 07/09/23 09:00 07/11/23 10:00 Polyethylene Glycol 3350 17 Gm Packet PO 17 gm DAILY JOMAR Administration Senna 17.2 - 25.8 mg 07/11/23 16:00 07/11/23 16:18 Senna 8.6 Mg Tablet PO 07/12/23 10:01 17.2 mg Q6H JOMAR Administration Sodium Chloride 10 ml 07/06/23 17:00 07/11/23 16:56 Sodium Chloride Flush 0.9% 10 Ml Syringe IVP 10 ml 0100,0900,1700 JOMAR Administration - Lab Result Fish Bone Diagrams: 07/11/23 05:29 07/11/23 05:29 - Additional Planning My Orders: My Active Orders 07/11/23 13:00 Straight Catheter Insertion [RC] ONCE 07/11/23 16:00 Senna [Senokot] 17.2 - 25.8 mg PO Q6H 07/11/23 21:00 Insulin Glargine-Yfgn [Semglee] 15 unit SUBQ QPM 07/12/23 05:00 CBC [CBC - COMP BLD CT W/AUTO DIFF] [HEME] DAILYLAB 07/13/23 05:00 CBC [CBC - COMP BLD CT W/AUTO DIFF] [HEME] DAILYLAB 07/14/23 05:00 CBC [CBC - COMP BLD CT W/AUTO DIFF] [HEME] DAILYLAB 07/15/23 05:00 CBC [CBC - COMP BLD CT W/AUTO DIFF] [HEME] DAILYLAB Subjective - Subjective Patient Reports: Other (Alert. No complaints at this time.) Objective Vital Signs: Vital Signs - 24 hr 07/10/23 07/11/23 07/11/23 21:30 00:05 07:30 Temperature 37.3 C Heart Rate [ 55 L Brachial] Respiratory 18 Rate Blood Pressure 159/73 H [Right Brachial artery] O2 Saturation 95 If not protocol 1 1 1 : Oxygen Flow, liters/minute 07/11/23 15:31 Temperature 37.1 C Heart Rate [ 92 Brachial] Respiratory 18 Rate Blood Pressure 152/70 H [Right Brachial artery] O2 Saturation 92 If not protocol : Oxygen Flow, liters/minute Oxygen O2 Source [With Activity] Room air O2 Source Room air Oxygen Flow Rate 2 I&O (Last 24 Hrs): Intake and Output Totals x24h 07/09/23 07/10/23 07/11/23 23:59 23:59 23:59 Intake Total 1580 420 940 Output Total 080 849 7999 Balance 142 -06 -189 General: Alert, Cooperative, No acute distress HEENT: Atraumatic, PERRLA, EOMI Neck: Supple, No JVD, No thyromegaly Lymphatic: no adenopathy Neuro: Alert Cardiovascular: Regular rate, Normal S1, Normal S2 Respiratory: Chest non-tender, No respiratory distress, Breath sounds nml Abdomen: Soft, No tenderness Extremities: No clubbing, No cyanosis Skin: No rashes - Results Results: Laboratory Results WBC 14.4 x10^3/uL (4.8-10.8) H 07/11/23 05:29 RBC 2.59 10^6/uL (4.70-6.10) L 07/11/23 05:29 Hgb 8.2 g/dL (14.0-18.0) L 07/11/23 05:29 Hct 25.1 % (42.0-52.0) L 07/11/23 05:29 MCV 96.9 fL (80.0-94.0) H 07/11/23 05:29 MCH 31.7 pg (27.0-31.0) H 07/11/23 05:29 MCHC 32.7 g/dL (32.0-36.0) 07/11/23 05:29 RDW 14.5 % (12.0-15.0) 07/11/23 05:29 Plt Count 190 10^3/uL (130-450) 07/11/23 05:29 MPV 9.3 fL (7.4-11.4) 07/11/23 05:29 Neut # (Auto) 9.7 10^3/uL (1.5-6.6) H 07/11/23 05:29 Lymph # (Auto) 2.4 10^3/uL (1.5-3.5) 07/11/23 05:29 [place] # (Auto) 1.9 10^3/uL (0.0-1.0) H 07/11/23 05:29 Eos # (Auto) 0.2 10^3/uL (0.0-0.7) 07/11/23 05:29 Baso # (Auto) 0.1 10^3/uL (0.0-0.1) 07/11/23 05:29 Absolute Nucleated RBC 0.00 x10^3/uL 07/11/23 05:29 Nucleated RBC % 0.0 /100WBC 07/11/23 05:29 PT 16.6 secs (9.9-12.6) H 07/06/23 12:47 INR 1.5 (0.8-1.2) H 07/06/23 12:47 APTT 32.3 secs (24.9-33.3) 07/06/23 12:47 Sodium 132 mmol/L (135-145) L 07/11/23 05:29 Potassium 4.8 mmol/L (3.5-4.5) H 07/11/23 05:29 Chloride 102 mmol/L (101-111) 07/11/23 05:29 Carbon Dioxide 26 mmol/L (21-32) 07/11/23 05:29 Anion Gap 4.0 (6-13) L 07/11/23 05:29 BUN 30 mg/dL (6-20) H 07/11/23 05:29 Creatinine 1.1 mg/dL (0.6-1.3) 07/11/23 05:29 Estimated GFR (MDRD) 63 (>89) L 07/11/23 05:29 Glucose 243 mg/dL (74-104) H 07/11/23 05:29 Estimat Average Glucose 146 mg/dL (70-100) H 07/08/23 05:08 Hemoglobin A1c % 6.7 % (4.27-6.07) H 07/08/23 05:08 Calcium 8.3 mg/dL (8.5-10.3) L 07/11/23 05:29 Magnesium 1.9 mg/dL (1.7-2.3) 07/06/23 12:47 Total Bilirubin 1.4 mg/dL (0.2-1.0) H 07/08/23 05:08 AST 12 IU/L (10-42) 07/08/23 05:08 ALT 7 IU/L (10-60) L 07/08/23 05:08 Alkaline Phosphatase 59 IU/L (42-121) 07/08/23 05:08 B-Natriuretic Peptide 79 pg/mL (5-100) 07/06/23 12:47 Total Protein 5.7 g/dL (6.4-8.9) L 07/08/23 05:08 Albumin 3.1 g/dL (3.2-5.5) L 07/08/23 05:08 Globulin 2.6 g/dL (2.1-4.2) 07/08/23 05:08 Albumin/Globulin Ratio 1.2 (1.0-2.2) 07/08/23 05:08 Lipase < 10 U/L (11-82) L 07/06/23 12:47 Blood Type O POSITIVE 07/06/23 16:14 Blood Type Recheck O POSITIVE 07/06/23 16:17 Antibody Screen NEGATIVE 07/06/23 16:14 - Procedures Procedures: Procedures ARTHROPLASTY OF MCP & INTERPHALANG JT W/O IMPLANT (03/19/15) REPOSITION RIGHT HUMERAL SHAFT WITH INT FIX, OPEN APPROACH (10/03/18) ABX Reporting Has patient been on IV antibiotics over the past 48 hours?: No Current Medications - Current Medications Current Medications: Active Medications Acetaminophen (Acetaminophen 325 Mg Tablet) 650 - 975 mg PO Q4HR PRN PRN Reason: PAIN Last Admin: 07/08/23 16:59 Dose: 975 mg Hydrocodone Bitart/Acetaminophen (Hydrocod/Acetam 5/325 Mg Tablet) 1 tab PO Q4HR PRN PRN Reason: Moderate Pain (Level 4-6) Last Admin: 07/11/23 09:20 Dose: 1 tab Apixaban (Apixaban 5 Mg Tablet) 5 mg PO BID [facility] Last Admin: 07/11/23 10:01 Dose: 5 mg Calcium Carbonate/Glycine (Calcium Carbonate Chew 500 Mg Tablet) 500 mg PO DAILY [facility] Last Admin: 07/11/23 10:01 Dose: 500 mg Cholecalciferol (Cholecalciferol 25 Mcg Tablet) 50 mcg PO DAILY [facility] Last Admin: 07/11/23 10:01 Dose: 50 mcg Docusate Sodium (Docusate Sodium 100 Mg Capsule) 100 mg PO BID PRN PRN Reason: Constipation Last Admin: 07/10/23 08:30 Dose: 100 mg Insulin Glargine-yfgn (Insulin Glargine-Yfgn 300 Unit/3 Ml Pen) 15 unit SUBQ QPM [facility] Insulin Human Lispro (Insulin Lispro 300 Unit/3 Ml Pen) 3 - 11 unit SUBQ 0800,1200,1700,2100 [facility]; Protocol Last Admin: 07/11/23 16:56 Dose: 9 unit Losartan Potassium (Losartan 50 Mg Tablet) 50 mg PO DAILY [facility] Last Admin: 07/11/23 09:20 Dose: 50 mg Ondansetron HCl (Ondansetron 4 Mg/2 Ml Vial) 4 mg IVP Q6HR PRN PRN Reason: Nausea / Vomiting Last Admin: 07/10/23 08:29 Dose: 4 mg Polyethylene Glycol (Polyethylene Glycol 3350 17 Gm Packet) 17 gm PO DAILY [facility] Last Admin: 07/11/23 10:00 Dose: 17 gm Senna (Senna 8.6 Mg Tablet) 17.2 - 25.8 mg PO Q6H [facility] Stop: 07/12/23 10:01 Last Admin: 07/11/23 16:18 Dose: 17.2 mg Sodium Chloride (Sodium Chloride Flush 0.9% 10 Ml Syringe) 10 ml IVP PRN PRN PRN Reason: NEEDED PER PROVIDER ORDERS Sodium Chloride (Sodium Chloride Flush 0.9% 10 Ml Syringe) 10 ml IVP 0100,090 0,1700 [facility] Last Admin: 07/11/23 16:56 Dose: 10 ml Furosemide 20 mg PO MOWEFR 03/13/13 Gabapentin [Neurontin] 300 mg PO TID 03/13/13 Levothyroxine [Synthroid] 25 mcg PO DAILY 03/13/13 Metoprolol Succinate [Toprol Xl] 100 mg PO DAILY 03/13/13 Omeprazole [Prilosec] 20 mg PO BIDWM 03/13/13 Potassium Chloride [Micro-K] 10 meq PO MOWEFR 03/13/13 Apixaban [Eliquis] 5 mg PO BID 07/04/16 Insulin Regular Human [NovoLIN R] 12 - 18 unit SUBQ BIDWM 03/24/19 Insulin Glargine,Hum.rec.anlog [Basaglar Kwikpen U-100] 10 unit SUBQ QPM 02/07/21 Rosuvastatin Calcium [Crestor] 2.5 mg PO QPM 02/07/21 Losartan [Cozaar] 100 mg PO DAILY 08/06/21 Tamsulosin [Flomax] 0.4 mg PO DAILY 08/06/21 Trospium Chloride 20 mg PO QPM 08/06/21 Albuterol Sulf [Ventolin Hfa Inhaler] 1 - 2 puffs INH Q4HR PRN 07/06/23 Finasteride [Proscar] 5 mg PO DAILY 07/06/23
[2023-07-12] MEDS: SODIUM CHLORIDE FLUSH 0.9% 10 ML SYRINGE IVP SCH ×3 (01:49→17:04)
[2023-07-12] MEDS: SENNA 8.6 MG TABLET PO SCH ×2 (04:14→11:23)
[2023-07-12 06:07] LABS: BASOPHILS # (AUTO) 0.1 10^3/uL (0.0-0.1); BASOPHILS % (AUTO) 0.5 %; EOSINOPHILS # (AUTO) 0.3 10^3/uL (0.0-0.7); EOSINOPHILS % (AUTO) 2.2 %; HCT - HEMATOCRIT 22.5 % (42.0-52.0); HGB - HEMOGLOBIN 7.4 g/dL (14.0-18.0); LYMPHOCYTES # (AUTO) 2.7 10^3/uL (1.5-3.5); LYMPHOCYTES % (AUTO) 20.8 %; MEAN CORPUSCULAR HGB CONC 32.9 g/dL (32.0-36.0); MEAN CORPUSCULAR VOLUME 94.1 fL (80.0-94.0); MEAN PLATELET VOLUME 9.3 fL (7.4-11.4); MONOCYTES # (AUTO) 1.4 10^3/uL (0.0-1.0); MONOCYTES % (AUTO) 10.5 %; NEUTROPHILS # (AUTO) 8.6 10^3/uL (1.5-6.6); NEUTROPHILS % (AUTO) 65.4 %; PLT - PLATELET COUNT 212 10^3/uL (130-450); RED BLOOD COUNT 2.39 10^6/uL (4.70-6.10); RED CELL DISTRIBUTION WIDTH 14.4 % (12.0-15.0); WHITE BLOOD COUNT 13.1 x10^3/uL (4.8-10.8)
[2023-07-12] MEDS: LOSARTAN 50 MG TABLET PO SCH (09:03)
[2023-07-12] MEDS: APIXABAN 5 MG TABLET PO SCH ×2 (09:03→21:26)
[2023-07-12] MEDS: CHOLECALCIFEROL 25 MCG TABLET PO SCH (09:03)
[2023-07-12] MEDS: INSULIN LISPRO 300 UNIT/3 ML PEN SUBQ SCH ×4 (09:03→21:28)
[2023-07-12] MEDS: CALCIUM CARBONATE CHEW 500 MG TABLET PO SCH (09:03)
[2023-07-12] MEDS: polyethylene glycoL 3350 17 GM PACKET PO SCH (09:04)
[2023-07-12] MEDS: HYDROcod/ACETAM 5/325 MG TABLET PO PRN (16:33)
[2023-07-12 18:09] LABS: HCT - HEMATOCRIT 26.7 % (42.0-52.0); HGB - HEMOGLOBIN 8.6 g/dL (14.0-18.0)
[2023-07-12] MEDS: INSULIN GLARGINE-YFGN 300 UNIT/3 ML PEN SUBQ SCH (21:27)
--- NOTE | 2023-07-12 22:21 | PROVIDER PROGRESS NOTE ---
Assessment/Plan - Problem List (1) Intertrochanteric fracture of left femur Assessment/Plan: (1) Intertrochanteric fracture of left femur Assessment/Plan: Restart apixaban [place] as needed for pain control (2) Atrial fibrillation Assessment/Plan: Stable. Continue apixaban Add metoprolol as tolerated for rate control (3) Hypertension Assessment/Plan: Continue Losartan (4) Diabetes mellitus Assessment/Plan: Sliding scale insulin (5) Anemia Assessment/Plan: Hematocrit decreased by 3 points today. Plan is to transfuse the patient and then consider transfer. Patient has no evidence of active hemorrhage. His w ound site looks good. - Current Meds Current Meds: Current Medications Generic Name Dose Route Start Last Admin Trade Name Freq PRN Reason Stop Dose Admin Acetaminophen 650 - 975 mg 07/07/23 15:22 07/08/23 16:59 Acetaminophen 325 Mg Tablet PO 975 mg Q4HR PRN Administration PAIN Hydrocodone Bitart/Acetaminophen 1 tab 07/06/23 19:45 07/12/23 16:33 Hydrocod/Acetam 5/325 Mg Tablet PO 1 tab Q4HR PRN Administration Moderate Pain (Level 4-6) Apixaban 5 mg 07/07/23 21:00 07/12/23 21:26 Apixaban 5 Mg Tablet PO 5 mg BID JOMAR Administration Calcium Carbonate/Glycine 500 mg 07/08/23 17:00 07/12/23 09:03 Calcium Carbonate Chew 500 Mg Tablet PO 500 mg DAILY JOMAR Administration Cholecalciferol 50 mcg 07/08/23 17:00 07/12/23 09:03 Cholecalciferol 25 Mcg Tablet PO 50 mcg DAILY JOMAR Administration Docusate Sodium 100 mg 07/07/23 15:22 07/10/23 08:30 Docusate Sodium 100 Mg Capsule PO 100 mg BID PRN Administration Constipation Insulin Glargine-yfgn 15 unit 07/11/23 21:00 07/12/23 21:27 Insulin Glargine-Yfgn 300 Unit/3 Ml Pen SUBQ 15 unit QPM JOMAR Administration Insulin Human Lispro 3 - 11 unit 07/10/23 12:00 07/12/23 21:28 Insulin Lispro 300 Unit/3 Ml Pen SUBQ 9 unit 0800,1200,1700,2100 JOMAR Administration Protocol Losartan Potassium 50 mg 07/06/23 21:00 07/12/23 09:03 Losartan 50 Mg Tablet PO 50 mg DAILY JOMAR Administration Ondansetron HCl 4 mg 07/07/23 15:22 07/10/23 08:29 Ondansetron 4 Mg/2 Ml Vial IVP 4 mg Q6HR PRN Administration Nausea / Vomiting Polyethylene Glycol 17 gm 07/09/23 09:00 07/12/23 09:04 Polyethylene Glycol 3350 17 Gm Packet PO Not Given DAILY JOMAR Sodium Chloride 10 ml 07/06/23 17:00 07/12/23 17:04 Sodium Chloride Flush 0.9% 10 Ml Syringe IVP 10 ml 0100,0900,1700 JOMAR Administration - Lab Result Fish Bone Diagrams: 07/12/23 17:59 07/11/23 05:29 - Additional Planning My Orders: My Active Orders 07/12/23 08:28 Transfuse RBCs Leukoreduced [RC] .ONCE 07/13/23 05:00 CBC [CBC - COMP BLD CT W/AUTO DIFF] [HEME] DAILYLAB 07/14/23 05:00 CBC [CBC - COMP BLD CT W/AUTO DIFF] [HEME] DAILYLAB 07/15/23 05:00 CBC [CBC - COMP BLD CT W/AUTO DIFF] [HEME] DAILYLAB Subjective - Subjective Patient Reports: Other (Alert. Following commands. He denies nausea vomiting, bright red blood per rectum. No other complaints at this time) Objective Vital Signs: Vital Signs - 24 hr 07/12/23 07/12/23 07/12/23 01:42 08:07 11:01 Temperature 36.4 C L 36.8 C 36.9 C Heart Rate [ 93 93 89 Brachial] Respiratory 18 16 16 Rate Blood Pressure 159/69 H 151/65 H 127/63 [Right Brachial artery] O2 Saturation 93 93 94 07/12/23 07/12/23 07/12/23 11:28 14:25 15:55 Temperature 37.0 C 37.1 C 37.0 C Heart Rate [ 98 98 93 Brachial] Respiratory 16 16 20 Rate Blood Pressure 136/62 H 138/61 H 147/63 H [Right Brachial artery] O2 Saturation 94 92 93 Oxygen O2 Source [With Activity] Room air O2 Source Room air Oxygen Flow Rate 2 I&O (Last 24 Hrs): Intake and Output Totals x24h 07/10/23 07/11/23 07/12/23 23:59 23:59 23:59 Intake Total 420 1440 420 Output Total 500 1450 775 Balance -80 -10 -355 General: Alert, Oriented x3, Cooperative, No acute distress HEENT: Atraumatic, PERRLA, EOMI Neck: Supple, No JVD, No thyromegaly Lymphatic: no adenopathy Neuro: Alert, Disoriented, Non Focal Cardiovascular: Regular rate, No murmurs, Other (Positive S1-S2 no extra heart sounds.) Respiratory: Chest non-tender, No respiratory distress, Breath sounds nml, Wheezes Abdomen: Normal bowel sounds, Soft, No tenderness Extremities: No clubbing, No cyanosis Skin: No rashes - Results Results: Laboratory Results WBC 13.1 x10^3/uL (4.8-10.8) H 07/12/23 05:50 RBC 2.39 10^6/uL (4.70-6.10) L 07/12/23 05:50 Hgb 8.6 g/dL (14.0-18.0) L 07/12/23 17:59 Hct 26.7 % (42.0-52.0) L 07/12/23 17:59 MCV 94.1 fL (80.0-94.0) H 07/12/23 05:50 MCH 31.0 pg (27.0-31.0) 07/12/23 05:50 MCHC 32.9 g/dL (32.0-36.0) 07/12/23 05:50 RDW 14.4 % (12.0-15.0) 07/12/23 05:50 Plt Count 212 10^3/uL (130-450) 07/12/23 05:50 MPV 9.3 fL (7.4-11.4) 07/12/23 05:50 Neut # (Auto) 8.6 10^3/uL (1.5-6.6) H 07/12/23 05:50 Lymph # (Auto) 2.7 10^3/uL (1.5-3.5) 07/12/23 05:50 [place] # (Auto) 1.4 10^3/uL (0.0-1.0) H 07/12/23 05:50 Eos # (Auto) 0.3 10^3/uL (0.0-0.7) 07/12/23 05:50 Baso # (Auto) 0.1 10^3/uL (0.0-0.1) 07/12/23 05:50 Absolute Nucleated RBC 0.00 x10^3/uL 07/12/23 05:50 Nucleated RBC % 0.0 /100WBC 07/12/23 05:50 PT 16.6 secs (9.9-12.6) H 07/06/23 12:47 INR 1.5 (0.8-1.2) H 07/06/23 12:47 APTT 32.3 secs (24.9-33.3) 07/06/23 12:47 Sodium 132 mmol/L (135-145) L 07/11/23 05:29 Potassium 4.8 mmol/L (3.5-4.5) H 07/11/23 05:29 Chloride 102 mmol/L (101-111) 07/11/23 05:29 Carbon Dioxide 26 mmol/L (21-32) 07/11/23 05:29 Anion Gap 4.0 (6-13) L 07/11/23 05:29 BUN 30 mg/dL (6-20) H 07/11/23 05:29 Creatinine 1.1 mg/dL (0.6-1.3) 07/11/23 05:29 Estimated GFR (MDRD) 63 (>89) L 07/11/23 05:29 Glucose 243 mg/dL (74-104) H 07/11/23 05:29 Estimat Average Glucose 146 mg/dL (70-100) H 07/08/23 05:08 Hemoglobin A1c % 6.7 % (4.27-6.07) H 07/08/23 05:08 Calcium 8.3 mg/dL (8.5-10.3) L 07/11/23 05:29 Magnesium 1.9 mg/dL (1.7-2.3) 07/06/23 12:47 Total Bilirubin 1.4 mg/dL (0.2-1.0) H 07/08/23 05:08 AST 12 IU/L (10-42) 07/08/23 05:08 ALT 7 IU/L (10-60) L 07/08/23 05:08 Alkaline Phosphatase 59 IU/L (42-121) 07/08/23 05:08 B-Natriuretic Peptide 79 pg/mL (5-100) 07/06/23 12:47 Total Protein 5.7 g/dL (6.4-8.9) L 07/08/23 05:08 Albumin 3.1 g/dL (3.2-5.5) L 07/08/23 05:08 Globulin 2.6 g/dL (2.1-4.2) 07/08/23 05:08 Albumin/Globulin Ratio 1.2 (1.0-2.2) 07/08/23 05:08 Lipase < 10 U/L (11-82) L 07/06/23 12:47 Blood Type O POSITIVE 07/12/23 08:56 Blood Type Recheck O POSITIVE 07/06/23 16:17 Antibody Screen NEGATIVE 07/12/23 08:56 Crossmatch IS Only See Detail 07/12/23 08:56 - Procedures Procedures: Procedures ARTHROPLASTY OF MCP & INTERPHALANG JT W/O IMPLANT (03/19/15) REPOSITION RIGHT HUMERAL SHAFT WITH INT FIX, OPEN APPROACH (10/03/18) Current Medications - Current Medications Current Medications: Active Medications Acetaminophen (Acetaminophen 325 Mg Tablet) 650 - 975 mg PO Q4HR PRN PRN Reason: PAIN Last Admin: 07/08/23 16:59 Dose: 975 mg Hydrocodone Bitart/Acetaminophen (Hydrocod/Acetam 5/325 Mg Tablet) 1 tab PO Q4HR PRN PRN Reason: Moderate Pain (Level 4-6) Last Admin: 07/12/23 16:33 Dose: 1 tab Apixaban (Apixaban 5 Mg Tablet) 5 mg PO BID [facility] Last Admin: 07/12/23 21:26 Dose: 5 mg Calcium Carbonate/Glycine (Calcium Carbonate Chew 500 Mg Tablet) 500 mg PO DAILY JOMAR Last Admin: 07/12/23 09:03 Dose: 500 mg Cholecalciferol (Cholecalciferol 25 Mcg Tablet) 50 mcg PO DAILY [facility] Last Admin: 07/12/23 09:03 Dose: 50 mcg Docusate Sodium (Docusate Sodium 100 Mg Capsule) 100 mg PO BID PRN PRN Reason: Constipation Last Admin: 07/10/23 08:30 Dose: 100 mg Insulin Glargine-yfgn (Insulin Glargine-Yfgn 300 Unit/3 Ml Pen) 15 unit SUBQ QPM [facility] Last Admin: 07/12/23 21:27 Dose: 15 unit Insulin Human Lispro (Insulin Lispro 300 Unit/3 Ml Pen) 3 - 11 unit SUBQ 0800,1200,1700,2100 [facility]; Protocol Last Admin: 07/12/23 21:28 Dose: 9 unit Losartan Potassium (Losartan 50 Mg Tablet) 50 mg PO DAILY [facility] Last Admin: 07/12/23 09:03 Dose: 50 mg Ondansetron HCl (Ondansetron 4 Mg/2 Ml Vial) 4 mg IVP Q6HR PRN PRN Reason: Nausea / Vomiting Last Admin: 07/10/23 08:29 Dose: 4 mg Polyethylene Glycol (Polyethylene Glycol 3350 17 Gm Packet) 17 gm PO DAILY [facility] Last Admin: 07/12/23 09:04 Dose: Not Given Sodium Chloride (Sodium Chloride Flush 0.9% 10 Ml Syringe) 10 ml IVP PRN PRN PRN Reason: NEEDED PER PROVIDER ORDERS Sodium Chloride (Sodium Chloride Flush 0.9% 10 Ml Syringe) 10 ml IVP 0100,0900,1700 [facility] Last Admin: 07/12/23 17:04 Dose: 10 ml Furosemide 20 mg PO MOWE03/13/13 Gabapentin [Neurontin] 300 mg PO TID 03/13/13 Levothyroxine [Synthroid] 25 mcg PO DAILY 03/13/13 Metoprolol Succinate [Toprol Xl] 100 mg PO DAILY 03/13/13 Omeprazole [Prilosec] 20 mg PO BIDWM 03/13/13 Potassium Chloride [Micro-K] 10 meq PO MOWEFR 03/13/13 Apixaban [Eliquis] 5 mg PO BID 07/04/16 Insulin Regular Human [NovoLIN R] 12 - 18 unit SUBQ BIDWM 03/24/19 Insulin Glargine,Hum.rec.anlog [Basaglar Kwikpen U-100] 10 unit SUBQ QPM 02/07/21 Rosuvastatin Calcium [Crestor] 2.5 mg PO QPM 02/07/21 Losartan [Cozaar] 100 mg PO DAILY 08/06/21 Tamsulosin [Flomax] 0.4 mg PO DAILY 08/06/21 Trospium Chloride 20 mg PO QPM 08/06/21 Albuterol Sulf [Ventolin Hfa Inhaler] 1 - 2 puffs INH Q4HR PRN 07/06/23 Finasteride [Proscar] 5 mg PO DAILY 07/06/23
[2023-07-13] MEDS ORDERED: INSULIN GLARGINE-YFGN 300 UNIT/3 ML PEN SUBQ SCH ×2 (00:30→21:00)
[2023-07-13] MEDS: SODIUM CHLORIDE FLUSH 0.9% 10 ML SYRINGE IVP SCH ×2 (04:35→10:27)
[2023-07-13 04:37] VITALS: O2SAT 92
[2023-07-13 05:42] LABS: BASOPHILS # (AUTO) 0.1 10^3/uL (0.0-0.1); BASOPHILS % (AUTO) 0.5 %; EOSINOPHILS # (AUTO) 0.4 10^3/uL (0.0-0.7); EOSINOPHILS % (AUTO) 3.7 %; HCT - HEMATOCRIT 25.9 % (42.0-52.0); HGB - HEMOGLOBIN 8.6 g/dL (14.0-18.0); LYMPHOCYTES # (AUTO) 2.3 10^3/uL (1.5-3.5); LYMPHOCYTES % (AUTO) 20.2 %; MEAN CORPUSCULAR HEMOGLOBIN 30.7 pg (27.0-31.0); MEAN CORPUSCULAR HGB CONC 33.2 g/dL (32.0-36.0); MEAN CORPUSCULAR VOLUME 92.5 fL (80.0-94.0); MEAN PLATELET VOLUME 9.5 fL (7.4-11.4); MONOCYTES # (AUTO) 1.1 10^3/uL (0.0-1.0); MONOCYTES % (AUTO) 9.5 %; NEUTROPHILS # (AUTO) 7.4 10^3/uL (1.5-6.6); NEUTROPHILS % (AUTO) 65.5 %; PLT - PLATELET COUNT 261 10^3/uL (130-450); RED CELL DISTRIBUTION WIDTH 14.8 % (12.0-15.0); WHITE BLOOD COUNT 11.3 x10^3/uL (4.8-10.8)
[2023-07-13 07:53] VITALS: BP 153/65
[2023-07-13] MEDS: CHOLECALCIFEROL 25 MCG TABLET PO SCH (09:04)
[2023-07-13] MEDS: APIXABAN 5 MG TABLET PO SCH (09:04)
[2023-07-13] MEDS: CALCIUM CARBONATE CHEW 500 MG TABLET PO SCH (09:04)
[2023-07-13] MEDS: LOSARTAN 50 MG TABLET PO SCH (09:04)
[2023-07-13] MEDS: polyethylene glycoL 3350 17 GM PACKET PO SCH (09:07)
[2023-07-13] MEDS: INSULIN LISPRO 300 UNIT/3 ML PEN SUBQ SCH ×2 (10:26→12:19)
--- NOTE | 2023-07-13 12:42 | DISCHARGE SUMMARY ---
Discharge Summary Admit Date: 07/06/23 Discharge Date: 07/13/23 Discharging Provider: Dr Lily Donnelly Primary Care Provider: Dr Leonidas Madsen Condition at Discharge: Stable Discharge Disposition: [facility] DC/Xfer - HPI History of Present Illness: Shemar Sanders is a 87-year-old man who presented to the emergency room on July 06, 2022 with complaints of left hip pain. Patient had a fall today and after the fall was unable to stand or weight-bear on his left extremity. He was taken to the emergency room and x-ray of the lower extremity revealed a displaced left intertrochanteric hip fracture. He has no other complaints at this time. Patient is on chronic anticoagulation with Eliquis for atrial fibrillation. He will be admitted for treatimg the hip fracture. - HOSPITAL COURSE Hospital Course: (1) Intertrochanteric fracture of left femur He got pain meds. His Apixaban was put on hold. He was seen by Ortho and underwent InterTan nailing of left hip fracture on 07/07/[address] Love. He was discharged to [facility] for rehab. (2) Atrial fibrillation We added metoprolol for better rate control. Apixaban was resumed when deemed safe by Ortho (3) Hypertension We continued Losartan and used Metoprolol. (4) Diabetes mellitus A1c came back at 6.7 indicating good glu control. He was on sliding scale insulin coverage here. (5) Anemia Hematocrit decreased by 3 points and plan was to transfuse the patient. He received 1 U PRBCs and Hgb was 8.6 at discharge. His wound site looked good. - ALLERGIES Allergies/Adverse Reactions: Allergies Allergy/AdvReac Type Severity Reaction Status Date / Time Iodinated Contrast Media Allergy Hives Verified 07/06/23 12:26 caffeine AdvReac Unknown Verified 07/06/23 12:26 - MEDICATIONS Home Medications: Ambulatory Orders Medication Instructions Recorded Confirmed Furosemide 20 mg PO MOWEFR 03/13/13 07/06/23 Gabapentin [Neurontin] 300 mg PO TID 03/13/13 07/06/23 Levothyroxine [Synthroid] 25 mcg PO DAILY 03/13/13 07/06/23 Metoprolol Succinate [Toprol Xl] 100 mg PO DAILY 03/13/13 07/06/23 Omeprazole [Prilosec] 20 mg PO BIDWM 03/13/13 07/06/23 Potassium Chloride [Micro-K] 10 meq PO MOWEFR 03/13/13 07/06/23 Apixaban [Eliquis] 5 mg PO BID 07/04/16 07/06/23 Insulin Regular Human [NovoLIN R] 12 - 18 unit SUBQ BIDWM 03/24/19 07/07/23 Insulin Glargine,Hum.rec.anlog 10 unit SUBQ QPM 02/07/21 07/07/23 [Basaglar Kwikpen U-100] Rosuvastatin Calcium [Crestor] 2.5 mg PO QPM 02/07/21 07/06/23 Losartan [Cozaar] 100 mg PO DAILY 08/06/21 07/06/23 Tamsulosin [Flomax] 0.4 mg PO DAILY 08/06/21 07/06/23 Trospium Chloride 20 mg PO QPM 08/06/21 07/06/23 Albuterol Sulf [Ventolin Hfa 1 - 2 puffs INH Q4HR PRN 07/06/23 07/06/23 Inhaler] Finasteride [Proscar] 5 mg PO DAILY 07/06/23 07/06/23 Acetaminophen [Tylenol] 650 - 975 mg PO Q4HR PRN tab 07/10/23 Calcium Carbonate [Tums (Calcium 500 mg PO DAILY tab 07/10/23 Carbonate 500mg)] Cholecalciferol [Vitamin D3] 50 mcg PO DAILY tab 07/10/23 HYDROcod/ACETAM 5/325 [[place] 5/325] 1 tab PO Q4HR PRN #20 tab 07/10/23 - PHYSICAL EXAM AT DISCHARGE General Appearance: positive: No acute distress, Alert Eyes Bilateral: positive: Normal inspection, EOMI ENT: positive: No signs of dehydration Neck: positive: Nml inspection Respiratory: positive: No respiratory distress Cardiovascular: positive: Irregularly irregular Abdomen: positive: Non-tender, No distention Skin: positive: Warm, Dry Extremities: positive: No pedal edema Neurologic/Psychiatric: positive: CN's nml (2-12), Other (Poor memory) - LABS Result Diagrams: 07/13/23 04:39 07/11/23 05:29 - DIAGNOSTIC IMAGING Diagnostic Imaging Results: Final report reviewed - FOLLOW UP Follow Up: See PCP after discharge from [facility]. - TIME SPENT Time Spent in Discharge (Minutes): 45
== END 2023-07-13 14:30 | DRG 481 ==
LOC: ED 12:21 → MS2 14:31
PROVIDERS: ADMIT Internal Medicine; ATTEND Internal Medicine
PROC: 0QS734Z Reposition Left Upper Femur with Internal Fixation Device, Percutaneous Approach (ICD-10-PCS; principal; 2023-07-07 13:00)
PROC: 30233N1 Transfusion of Nonautologous Red Blood Cells into Peripheral Vein, Percutaneous Approach (ICD-10-PCS; 2023-07-12)
DX: S72.142A Displaced intertrochanteric fracture of left femur, initial encounter for closed fracture (principal); I48.20 Chronic atrial fibrillation, unspecified; W18.30XA Fall on same level, unspecified, initial encounter; I48.91 Unspecified atrial fibrillation; Y92.009 Unspecified place in unspecified non-institutional (private) residence as the place of occurrence of the external cause; Z79.01 Long term (current) use of anticoagulants; I10 Essential (primary) hypertension; E11.51 Type 2 diabetes mellitus with diabetic peripheral angiopathy without gangrene; Z79.4 Long term (current) use of insulin; D64.9 Anemia, unspecified; E78.00 Pure hypercholesterolemia, unspecified; E03.9 Hypothyroidism, unspecified; N40.1 Benign prostatic hyperplasia with lower urinary tract symptoms; N39.498 Other specified urinary incontinence; R35.0 Frequency of micturition; S09.90XA Unspecified injury of head, initial encounter; I25.10 Atherosclerotic heart disease of native coronary artery without angina pectoris; Z86.711 Personal history of pulmonary embolism; Z79.899 Other long term (current) drug therapy; Z91.81 History of falling; Z66 Do not resuscitate
CPT/HCPCS: 36415; 70450; 71045; 72125; 73502; 80048; 80053; 83036; 83690; 83735; 83880; 85014; 85018; 85025; 85610; 85730; 86850; 86900; 86901; 86920; 87086; 93005; 96374; 96375; 97162; 97167; 97530; 99285; A9270; C1713; J1170; J1815; J7120; P9016

== ENCOUNTER 2023-07-13 13:45 | Outpatient (CLI) | payer MEDICARE, OTHER | END 2023-07-13 23:59 | LOC: EMS 13:45 | PROVIDERS: ATTEND Internal Medicine | DX: S72.002A Fracture of unspecified part of neck of left femur, initial encounter for closed fracture (principal); Z74.01 Bed confinement status | CPT/HCPCS: A0425; A0428 ==

== ENCOUNTER 2023-07-16 08:00 | Outpatient (CLI) | payer MEDICARE, OTHER ==
[2023-07-16 19:06] LABS: BILIRUBIN,URINE NEGATIVE (NEGATIVE); GLUCOSE, URINE (UA) NEGATIVE (NEGATIVE); KETONES,URINE (UA) NEGATIVE (NEGATIVE); LEUKOCYTE ESTERASE, URINE NEGATIVE (NEGATIVE); NITRITE,URINE NEGATIVE (NEGATIVE); OCCULT BLOOD,URINE TRACE-INTA (NEGATIVE); PROTEIN,URINE NEGATIVE (NEGATIVE); UROBILINOGEN,URINE 1 (NORMAL) E.U./dL (NORMAL)
[2023-07-16 19:09] LABS: CLARITY,URINE CLEAR (CLEAR)
== END 2023-07-16 23:59 | disposition home or self-care (01) ==
LOC: LAB.R 08:00
PROVIDERS: ATTEND Registered Nurse
DX: N39.0 Urinary tract infection, site not specified (principal)
CPT/HCPCS: 81001; 81003; 87086

== ENCOUNTER 2023-07-17 08:00 | Outpatient (CLI) | payer MEDICARE, OTHER ==
[2023-07-17 16:20] LABS: BASOPHILS % (AUTO) 0.4 %; EOSINOPHILS % (AUTO) 0.2 %; HCT - HEMATOCRIT 29.9 % (42.0-52.0); HGB - HEMOGLOBIN 9.7 g/dL (14.0-18.0); LYMPHOCYTES % (AUTO) 2.8 %; MEAN CORPUSCULAR HGB CONC 32.4 g/dL (32.0-36.0); MEAN CORPUSCULAR VOLUME 95.5 fL (80.0-94.0); MEAN PLATELET VOLUME 8.8 fL (7.4-11.4); MONOCYTES % (AUTO) 2.7 %; NEUTROPHILS % (AUTO) 92.8 %; PLT - PLATELET COUNT 382 10^3/uL (130-450); RED BLOOD COUNT 3.13 10^6/uL (4.70-6.10); RED CELL DISTRIBUTION WIDTH 15.2 % (12.0-15.0); WHITE BLOOD COUNT 24.5 x10^3/uL (4.8-10.8)
[2023-07-17 16:24] LABS: ABNORMAL LYMPHS % (MANUAL) 0 %
[2023-07-17 16:32] LABS: CALCIUM 8.3 mg/dL (8.5-10.3); CREATININE 1.1 mg/dL (0.6-1.3); POTASSIUM 4.7 mmol/L (3.5-4.5)
[2023-07-17 17:00] LABS: BAND NEUTROPHILS % (MANUAL) 7 %; LYMPHOCYTES % (MANUAL) 4 %; MONOCYTES # (MANUAL) 0.7 10^3/uL (0.0-1.0); NEUTROPHILS # (MANUAL) 22.8 10^3/uL (1.5-6.6)
[2023-07-17 17:01] LABS: DIFFERENTIAL COMMENT MANUAL DIFFERENTIAL; PLATELET ESTIMATE, MANUAL NORMAL (130-450,000) (NORMAL); PLATELET MORPHOLOGY NORMAL APPEARANCE (NORMAL)
== END 2023-07-17 23:59 | disposition home or self-care (01) ==
LOC: LAB.R 08:00
DX: N18.9 Chronic kidney disease, unspecified (principal); D62 Acute posthemorrhagic anemia
CPT/HCPCS: 80048; 85025

== ENCOUNTER 2023-07-18 08:00 | Outpatient (CLI) | payer MEDICARE, OTHER ==
[2023-07-18 07:42] LABS: BILIRUBIN,URINE NEGATIVE (NEGATIVE); GLUCOSE, URINE (UA) NEGATIVE (NEGATIVE); KETONES,URINE (UA) NEGATIVE (NEGATIVE); LEUKOCYTE ESTERASE, URINE SMALL (NEGATIVE); NITRITE,URINE NEGATIVE (NEGATIVE); OCCULT BLOOD,URINE MODERATE (NEGATIVE); PROTEIN,URINE NEGATIVE (NEGATIVE); UROBILINOGEN,URINE 0.2 (NORMAL) E.U./dL (NORMAL)
[2023-07-18 07:55] LABS: CLARITY,URINE CLEAR (CLEAR)
[2023-07-18 07:56] LABS: BACTERIA,URINE Rare /HPF (None Seen); SQUAMOUS EPITHELIAL CELL,UR RARE Squamous (<= Few)
== END 2023-07-18 23:59 | disposition home or self-care (01) ==
LOC: LAB.R 08:00
PROVIDERS: ATTEND Registered Nurse
DX: R30.0 Dysuria (principal)
CPT/HCPCS: 81001; 87086

== ENCOUNTER 2023-07-21 08:00 | Outpatient (CLI) | payer MEDICARE, OTHER ==
[2023-07-21 21:55] LABS: BASOPHILS % (AUTO) 0.5 %; EOSINOPHILS # (AUTO) 0.3 10^3/uL (0.0-0.7); EOSINOPHILS % (AUTO) 3.2 %; HGB - HEMOGLOBIN 9.8 g/dL (14.0-18.0); LYMPHOCYTES # (AUTO) 1.6 10^3/uL (1.5-3.5); LYMPHOCYTES % (AUTO) 18.4 %; MEAN CORPUSCULAR HEMOGLOBIN 30.7 pg (27.0-31.0); MEAN CORPUSCULAR HGB CONC 31.6 g/dL (32.0-36.0); MEAN CORPUSCULAR VOLUME 97.2 fL (80.0-94.0); MEAN PLATELET VOLUME 9.2 fL (7.4-11.4); MONOCYTES # (AUTO) 0.6 10^3/uL (0.0-1.0); MONOCYTES % (AUTO) 7.5 %; NEUTROPHILS # (AUTO) 5.9 10^3/uL (1.5-6.6); NEUTROPHILS % (AUTO) 69.7 %; PLT - PLATELET COUNT 503 10^3/uL (130-450); RED BLOOD COUNT 3.19 10^6/uL (4.70-6.10); RED CELL DISTRIBUTION WIDTH 15.9 % (12.0-15.0); WHITE BLOOD COUNT 8.4 x10^3/uL (4.8-10.8)
== END 2023-07-21 23:59 | disposition home or self-care (01) ==
LOC: LAB.R 08:00
PROVIDERS: ATTEND Registered Nurse
DX: B99.9 Unspecified infectious disease (principal)
CPT/HCPCS: 85025

== ENCOUNTER 2023-07-29 08:00 | Outpatient (CLI) | payer MEDICARE, OTHER ==
--- NOTE | 2023-07-29 22:55 | XRAY Report ---
PROCEDURE: Hip 2 View LT INDICATIONS: LEFT HIP ORIF TECHNIQUE: 2 view(s) of the hip were acquired. COMPARISON: Intraoperative fluoroscopic images of the left hip dated 07/07/2023 FINDINGS: Bones: There are postsurgical changes of open reduction and internal fixation of left femoral neck fr acture using anterograde intramedullary davion with dynamic compression screw fixation. Distal interlock ing screw is also present. No evidence for hardware dictation. Normal postsurgical alignment. Soft tissues: No suspicious soft tissue calcifications or masses. Skin karlie are noted. IMPRESSION: Status post ORIF of left femoral neck fracture without evidence for hardware complication. Normal pos tsurgical alignment. Reviewed by: Fam Hope MD on 07/29/2023 10:53 PM PST Approved by: Fam Hope MD on 07/29/2023 10:53 PM PST Station ID: [id number]
== END 2023-07-29 23:59 | disposition home or self-care (01) ==
LOC: DI.WOS 08:00
PROVIDERS: ATTEND Orthopaedic Surgery
DX: S72.002D Fracture of unspecified part of neck of left femur, subsequent encounter for closed fracture with routine healing (principal)

== ENCOUNTER 2023-07-31 08:00 | Outpatient (CLI) | payer MEDICARE, OTHER ==
[2023-07-31 12:07] LABS: BASOPHILS # (AUTO) 0.1 10^3/uL (0.0-0.1); BASOPHILS % (AUTO) 0.8 %; EOSINOPHILS # (AUTO) 0.4 10^3/uL (0.0-0.7); HCT - HEMATOCRIT 35.7 % (42.0-52.0); HGB - HEMOGLOBIN 11.2 g/dL (14.0-18.0); LYMPHOCYTES % (AUTO) 27.4 %; MEAN CORPUSCULAR HEMOGLOBIN 30.6 pg (27.0-31.0); MEAN CORPUSCULAR HGB CONC 31.4 g/dL (32.0-36.0); MEAN CORPUSCULAR VOLUME 97.5 fL (80.0-94.0); MEAN PLATELET VOLUME 8.8 fL (7.4-11.4); MONOCYTES # (AUTO) 0.6 10^3/uL (0.0-1.0); MONOCYTES % (AUTO) 8.9 %; NEUTROPHILS # (AUTO) 4.1 10^3/uL (1.5-6.6); NEUTROPHILS % (AUTO) 57.6 %; PLT - PLATELET COUNT 288 10^3/uL (130-450); RED BLOOD COUNT 3.66 10^6/uL (4.70-6.10); RED CELL DISTRIBUTION WIDTH 15.5 % (12.0-15.0); WHITE BLOOD COUNT 7.2 x10^3/uL (4.8-10.8)
[2023-07-31 12:20] LABS: ALBUMIN 2.9 g/dL (3.2-5.5); ALBUMIN/GLOBULIN RATIO 0.9 (1.0-2.2); CALCIUM 8.7 mg/dL (8.5-10.3); CREATININE 0.8 mg/dL (0.6-1.3); POTASSIUM 3.8 mmol/L (3.5-4.5); TOTAL PROTEIN 6.1 g/dL (6.4-8.9)
[2023-07-31 12:34] LABS: THYROID STIMULATING HORMONE 2.12 uIU/mL (0.34-5.60)
== END 2023-07-31 23:56 | disposition home or self-care (01) ==
LOC: LAB.R 08:00
PROVIDERS: ATTEND Registered Nurse
DX: I10 Essential (primary) hypertension (principal); I48.20 Chronic atrial fibrillation, unspecified; E03.9 Hypothyroidism, unspecified; D62 Acute posthemorrhagic anemia; E55.9 Vitamin D deficiency, unspecified
CPT/HCPCS: 80053; 82306; 84439; 84443; 85025

== ENCOUNTER 2023-08-12 08:00 | Outpatient (CLI) | payer MEDICARE, OTHER | END 2023-08-12 23:59 | disposition home or self-care (01) | LOC: LAB 08:00 | PROVIDERS: ATTEND Urology | DX: R30.0 Dysuria (principal) | CPT/HCPCS: 87077; 87086; 87181 ==

== ENCOUNTER 2023-08-15 08:00 | Outpatient (CLI) | payer MEDICARE, OTHER ==
[2023-08-15 16:18] LABS: BASOPHILS # (AUTO) 0.1 10^3/uL (0.0-0.1); BASOPHILS % (AUTO) 0.6 %; EOSINOPHILS # (AUTO) 0.4 10^3/uL (0.0-0.7); EOSINOPHILS % (AUTO) 5.3 %; HCT - HEMATOCRIT 38.2 % (42.0-52.0); HGB - HEMOGLOBIN 12.3 g/dL (14.0-18.0); LYMPHOCYTES # (AUTO) 2.6 10^3/uL (1.5-3.5); LYMPHOCYTES % (AUTO) 30.7 %; MEAN CORPUSCULAR HEMOGLOBIN 30.8 pg (27.0-31.0); MEAN CORPUSCULAR HGB CONC 32.2 g/dL (32.0-36.0); MEAN CORPUSCULAR VOLUME 95.7 fL (80.0-94.0); MEAN PLATELET VOLUME 8.8 fL (7.4-11.4); MONOCYTES # (AUTO) 0.8 10^3/uL (0.0-1.0); MONOCYTES % (AUTO) 9.2 %; NEUTROPHILS # (AUTO) 4.5 10^3/uL (1.5-6.6); NEUTROPHILS % (AUTO) 53.7 %; PLT - PLATELET COUNT 254 10^3/uL (130-450); RED BLOOD COUNT 3.99 10^6/uL (4.70-6.10); RED CELL DISTRIBUTION WIDTH 14.1 % (12.0-15.0); WHITE BLOOD COUNT 8.4 x10^3/uL (4.8-10.8)
[2023-08-15 16:22] LABS: BILIRUBIN,URINE NEGATIVE (NEGATIVE); CLARITY,URINE CLEAR (CLEAR); GLUCOSE, URINE (UA) NEGATIVE (NEGATIVE); KETONES,URINE (UA) NEGATIVE (NEGATIVE); LEUKOCYTE ESTERASE, URINE SMALL (NEGATIVE); NITRITE,URINE NEGATIVE (NEGATIVE); OCCULT BLOOD,URINE TRACE-INTA (NEGATIVE); PROTEIN,URINE NEGATIVE (NEGATIVE); UROBILINOGEN,URINE 0.2 (NORMAL) E.U./dL (NORMAL)
[2023-08-15 16:32] LABS: BACTERIA,URINE Rare /HPF (None Seen); RBC,URINE 0-5 /HPF (0-5); SQUAMOUS EPITHELIAL CELL,UR FEW Squamous (<= Few)
[2023-08-15 16:38] LABS: ALBUMIN 3.1 g/dL (3.2-5.5); BILIRUBIN,TOTAL 0.5 mg/dL (0.2-1.0); CALCIUM 8.8 mg/dL (8.5-10.3); CREATININE 1.2 mg/dL (0.6-1.3); POTASSIUM 4.7 mmol/L (3.5-4.5); TOTAL PROTEIN 6.2 g/dL (6.4-8.9)
== END 2023-08-15 23:59 | disposition home or self-care (01) ==
LOC: LAB.R 08:00
PROVIDERS: ATTEND Registered Nurse
DX: I10 Essential (primary) hypertension (principal); I48.20 Chronic atrial fibrillation, unspecified; N39.0 Urinary tract infection, site not specified
CPT/HCPCS: 36415; 80053; 81001; 81003; 85025

== ENCOUNTER 2023-08-19 10:16 | Outpatient (CLI) | payer MEDICARE, OTHER ==
--- NOTE | 2023-08-19 17:23 | XRAY Report ---
PROCEDURE: Hip 2 View LT INDICATIONS: LEFT HIP PAIN TECHNIQUE: 2 view(s) of the hip were acquired. COMPARISON: 07/29/2023 FINDINGS: Bones: Left hip pin and intramedullary femoral davion in stable position. Comminuted intertrochanteric f racture is redemonstrated. No evidence of hardware fracture. No new osseous fracture or dislocation. Soft tissues: No suspicious soft tissue calcifications or masses. IMPRESSION: Expected appearance post left hip pinning. Reviewed by: Emely Flores MD on 08/19/2023 5:22 PM PST Approved by: Emely Flores MD on 08/19/2023 5:22 PM PST Station ID: [id number]
== END 2023-08-19 23:59 | disposition home or self-care (01) ==
LOC: DI.WOS 10:16
PROVIDERS: ATTEND Orthopaedic Surgery
DX: S72.142D Displaced intertrochanteric fracture of left femur, subsequent encounter for closed fracture with routine healing (principal)